=== PATIENT | male | born 1960 | race Caucasian/White ===

== ENCOUNTER 2016-05-22 11:56 | Emergency (ER) | payer OTHER ==
[~2016-05-22] VITALS: Ht 170.2 cm; Wt 70.0 kg
[2016-05-22 12:00] VITALS: Ht 170.2 cm; Wt 70.0 kg
--- NOTE | 2016-05-22 12:14 | ERD ---
ER Documentation Chief Complaint Date/Time DATE: 05/22/16 TIME: 12:10 Chief Complaint mid abdominal pain with open abdomen wound bleeding HPI 56-year-old homeless gentleman who presents emergency room for duration of abdominal wound. The patient had surgery approximately 2 years ago. It appeared to be complicated by ventral hernia that is now healing by secondary intention. The patient had surgery at [place] but has not followed up with the surgeon at that time. The patient states over the last couple days he has had small amount of bleeding from the site. He states normal ostomy output, no abdominal pain, no nausea or vomiting. No other bleeding or bruising. Patient states that his primary care physician has not provided him with referral to general surgeon. He states "I only see the PA when I go ". Last visit 2 weeks ago. ROS All systems reviewed and are negative except as per history of present illness. PMhx/Soc Medical and Surgical Hx: pt denies Surgical Hx History of Surgery: Yes (ostomy ) Hx Alcohol Use: No Hx Substance Use: No Hx Tobacco Use: No Smoking Status: Never smoker FmHx Family History: No diabetes Physical Exam Vitals Vital Signs Date Time Temp Pulse Resp B/P Pulse Ox O2 Delivery O2 Flow Rate FiO2 05/22/16 12:00 98.7 72 18 132/82 100 Physical Exam General: Well developed, well nourished, no acute distress Head: Normocephalic, atraumatic. Eyes: Pupils equally reactive, EOM intact ENT: Moist mucous membranes Neck: Supple, no lymphadenopathy Respiratory: Lungs clear bilaterally, no distress Cardiovascular: RRR, no murmurs, rubs, or gallops Abdominal: Soft, ostomy with good output. Approximately 2.5 cm area in the mid surgical scar that appears to be consistent with a healing wound dehiscence by secondary intention. The patient has a small area of excoriation that appears to have a clot that was the likely source of bleeding. This is superficial and no bleeding currently. : Deferred MSK: No edema, no unilateral swelling, 5/5 strength Neurologic: Alert and oriented, moving all extremities, normal speech, no focal weakness, no cerebellar signs Skin: No rash, no petechia or purpura Psych: Normal mood Procedures/MDM The patient presents for evaluation of abdominal wound. The wound appears to be chronic. Small amount of superficial bleeding has been noted that is now clotted. No evidence of coagulopathy on clinical exam. He denies any abdominal pain. His abdominal exam is benign. He has good ostomy output. No evidence of obstruction. The patient appeared to have very superficial bleeding from the wound that again is healing well and appropriately. The clot is formed. No current bleeding. The patient is to continue to have wound care and wound dressing changes. He needs to follow-up with primary care physician for referral to general surgeon. I provided referral information of the [facility] , the patient states "I have already tried that ". At this time the patient has a benign abdominal exam, no evidence of coagulopathy, no evidence of active bleeding. I offered a dressing change here in the emergency room, ostomy bags and discharge. The patient has been referred to his primary care physician. Referral to community health systems has also been provided. The patient is uncooperative with wound dressing in the emergency department. No indication for telemetry testing or CT imaging at this time. The patient is safe for discharge. Departure Diagnosis: Primary Impression: Abdominal wound dehiscence Encounter type: subsequent encounter Qualified Code: T81.30XD - Abdominal wound dehiscence, subsequent encounter Condition: Stable Patient Instructions: Abdominal Pain Referrals: [place] FOSTER SAMUEL MD [facility] YOU HAVE RECEIVED A MEDICAL SCREENING EXAM AND THE RESULTS INDICATE THAT YOU DO NOT HAVE A CONDITION THAT REQUIRES URGENT TREATMENT IN THE EMERGENCY DEPARTMENT. FURTHER EVALUATION AND TREATMENT OF YOUR CONDITION CAN WAIT UNTIL YOU ARE SEEN IN YOUR DOCTORS OFFICE WITHIN THE NEXT 1-2 DAYS. IT IS YOUR RESPONSIBILITY TO MAKE AN APPOINTMENT FOR FOLOW-UP CARE. IF YOU HAVE A PRIMARY DOCTOR --you should call your primary doctor and schedule an appointment IF YOU DO NOT HAVE A PRIMARY DOCTOR YOU CAN CALL OUR PHYSICIAN REFERRAL HOTLINE AT IF YOU CAN NOT AFFORD TO SEE A PHYSICIAN YOU CAN CHOSE FROM THE FOLLOWING [facility] CLINICS [facility] [address] [facility] [address] [facility] [facility] [address] [facility] [address] [facility] [address] [facility]. [facility] [address] [facility]. [facility] YOU HAVE RECEIVED A MEDICAL SCREENING EXAM AND THE RESULTS INDICATE THAT YOU DO NOT HAVE A CONDITION THAT REQUIRES URGENT TREATMENT IN THE EMERGENCY DEPARTMENT. FURTHER EVALUATION AND TREATMENT OF YOUR CONDITION CAN WAIT UNTIL YOU ARE SEEN IN YOUR DOCTORS OFFICE WITHIN THE NEXT 1-2 DAYS. IT IS YOUR RESPONSIBILITY TO MAKE AN APPOINTMENT FOR FOLOW-UP CARE. IF YOU HAVE A PRIMARY DOCTOR --you should call your primary doctor and schedule and appointment IF YOU DO NOT HAVE A PRIMARY DOCTOR YOU CAN CALL OUR PHYSICIAN REFERRAL HOTLINE AT . IF YOU CAN NOT AFFORD TO SEE A PHYSICIAN YOU CAN CHOSE FROM THE FOLLOWING [facility]: [facility] [address] [place] [address] [facility] [address] [place] [address] [facility] [address] [place] [address] Additional Instructions: You need to follow up with your PMD for referral to a General Surgeon to monitor the healing of your wound. Call your primary care doctor TOMORROW for an appointment during the next 1 WEEK.Tell the psychopaedic nurse that you were referred from this facility.See the doctor sooner or return here if your condition worsens before your appointment time. DYLAN OSLEN MD May 22, 2016 12:14
== END 2016-05-22 12:35 | disposition home or self-care (01) ==
LOC: E/R 11:56
DX: T81.30XA Disruption of wound, unspecified, initial encounter (principal); Y73.3 Surgical instruments, materials and gastroenterology and urology devices (including sutures) associated with adverse incidents
CPT/HCPCS: 99282

== ENCOUNTER 2016-07-03 12:30 | Inpatient (IN) | payer OTHER ==
[~2016-07-03] VITALS: Ht 182.9 cm; Wt 73.4 kg
[2016-07-03 16:30] VITALS: BP 107/71; RESP 16
[2016-07-03 17:46] VITALS: Ht 182.9 cm; Wt 73.4 kg
[2016-07-03] MEDS ORDERED: ONDANSETRON 4 MG INJ IV PRN ×2 (18:00→18:30)
[2016-07-03] MEDS ORDERED: ACETAMINOPHEN 325 MG TAB PO PRN (18:00)
[2016-07-03] MEDS ORDERED: DOCUSATE SODIUM 100 MG CAP PO PRN (18:00)
[2016-07-03] MEDS ORDERED: LORAZEPAM 2 MG INJ IM PRN (18:30)
--- NOTE | 2016-07-03 18:35 | QN ---
Documentation Comment a/p gi bleed anemia etoh abuse low platelet plan per order LANCE RIVAS MD July 03, 2016 18:35
[2016-07-03] MEDS: SOD CHLORIDE 0.9% 1,000 ML IV SCH (20:07)
[2016-07-03] MEDS: CEFTRIAXONE 1 GM/50 ML (PMX) 50 ML IVPB SCH (20:08)
[2016-07-03 20:25] VITALS: BP 118/72; RESP 18
[2016-07-03] MEDS: GUAIFENESIN/DM 5ML CUP PO PRN (20:53)
[2016-07-03] MEDS: DOCUSATE SODIUM 100 MG CAP PO SCH (20:53)
[2016-07-03] MEDS: SOD FERRIC GLUC COMPLX 125 MG in SOD CHLORIDE 0.9% 100 ML IVPB SCH (20:54)
[2016-07-03] MEDS ORDERED: SENNA TAB PO PRN (21:00)
[2016-07-03] MEDS: morphine 10 MG INJ IM PRN (22:01)
[2016-07-04] MEDS: PANTOPRAZOLE 40 MG INJ IV SCH (06:00)
[2016-07-04 06:07] LABS: ADD SCAN DIFF NO
[2016-07-04] MEDS: morphine 10 MG INJ IM PRN (06:08)
[2016-07-04 06:14] LABS: ABNORMAL IP MESSAGE 1; HEMATOCRIT 25.9 % (42.0-52.0); HEMOGLOBIN 8.6 g/dl (14.0-18.0); MEAN CORPUSCULAR HEMOGLOBIN 29.7 pg (29.0-33.0); MEAN CORPUSCULAR HGB CONC 33.2 g/dl (32.0-37.0); MEAN CORPUSCULAR VOLUME 89.3 fl (82.0-101.0); MEAN PLATELET VOLUME 12.1 fl (7.4-10.4); PLATELET COUNT 65 10^3/UL (140-415); RED CELL DISTRIBUTION WIDTH 22.7 % (11.5-14.5); WHITE BLOOD COUNT 2.6 10^3/ul (4.8-10.8)
[2016-07-04 07:46] VITALS: BP 109/71; RESP 16
[2016-07-04 08:10] LABS: LYMPHOCYTES # 0.6 10^3/ul (0.8-2.9); MONOCYTE # 0.6 10^3/ul (0.3-0.9); NEUTROPHIL # 1.4 10^3/ul (1.6-7.5); PLATELET ESTIMATE PLT APPEAR DECREASED
[2016-07-04] MEDS: FOLIC ACID 1 MG TAB PO SCH (09:27)
[2016-07-04] MEDS: DOCUSATE SODIUM 100 MG CAP PO SCH ×2 (09:28→20:57)
--- NOTE | 2016-07-04 13:07 | HP ---
Date/Time of Note Date/Time of Note DATE: 07/04/16 TIME: 12:52 Assessment/Plan VTE Prophylaxis VTE Prophylaxis Intervention: SCD's Lines/Catheters IV [facility] Peripheral IV Assessment/Plan Chief Complaint/Hosp Course 1.GI bleed from ileostomy and unhealed incision wound 2. Anemia 3. ETOH abuse 4. Liver cirrhosis with low platelet 5. Hs of colectomy with ileostomy formation 2 years ago 6. hepatitis C 7. Unhealed abdominal incision after exploratory laparotomy 2 years ago 8. Nicotine dependency 9. Homelessness. Problems: Assessment/Plan 1. Surgical consult Dr Leach 2. Hematology consult Dr Mark 3. Continue wound care 4. DVT prophylaxis HPI/ROS Admit Date/Time Admit Date/Time July 03, 2016 at 16:40 Hx of Present Illness pt was admitted to [facility] 5 days ago with bleeding to ileostomy and from midline incision. The bleeding was stopped on his own. he was in hospital for 5 days. Now transferred to [facility] for continuation of care ROS Constitutional: fatigue, nausea Eyes: no complaints ENT: no complaints Respiratory: no complaints Cardiovascular: no complaints Gastrointestinal: decreased appetite, other (blood in both bags) Genitourinary: no complaints Musculoskeletal: back pain, restricted range of motion Skin: bruising Neurologic: no complaints Endocrine: no complaints Psychological: depression PMH/Family/Social Past Medical History 1. Ileostomy 2. Anemia 3. ETOH abuse 4. Liver cirrhosis with low platelet 5. Hs of colectomy with ileostomy formation 2 years ago 6. hepatitis C 7. Unhealed abdominal incision after exploratory laparotomy 2 years ago 8. Nicotine dependency 9. Homelessness. Medical History: hepatitis, renal disease Past Surgical History Past Surgical Hx: bowel resection Family History Significant Family History: no pertinent family hx Social History Alcohol Use: heavy Smoking Status: Current every day smoker Drug Use: other (history of IV drug abuse) Exam/Review of Systems Vital Signs Vitals Vital Signs Date Time Temp Pulse Resp B/P Pulse Ox O2 Delivery O2 Flow Rate FiO2 07/04/16 07:46 97.9 73 16 109/71 96 Intake and Output 07/03/16 07/03/16 07/04/16 15:00 23:00 07:00 Intake Total 240 ml 860 ml Output Total 800 ml Balance 240 ml 60 ml Exam Constitutional: alert, oriented Psych: no complaints Head: atraumatic, normocephalic Eyes: nl conjunctiva, other (ickteric) ENMT: nl external ears & nose Neck: supple Respiratory: clear to auscultation, normal air movement Cardiovascular: regular rate and rhythm Gastrointestinal: soft Genitourinary - Male: nl penis (2 collection bags for ileostomy and unhealed abdominal wound) Labs Result Diagram: 07/04/16 0540 Medications Medications Current Medications Sodium Chloride (NS) 1,000 ml @ 40 mls/hr Q24H IV Last administered on 20:07; Admin Dose 40 MLS/HR; Start 07/03/16 at 17:48 Acetaminophen (Tylenol Tab) 650 mg Q6H PRN PO PAIN LEVEL 1-3 OR FEVER; Start at 18:00 Acetaminophen/ Hydrocodone Bitart ([place] (5/325)) 1 tab Q6H PRN PO MODERATE PAIN LEVEL 4-6; Start 07/03/16 at 18:00 Zolpidem Tartrate (Ambien) 5 mg QHS PRN PO SLEEP; Start 07/03/16 at 18:00 Pantoprazole 40 mg 40 mg DAILY@06 IV Last administered on 07/04/16 06:00; Admin Dose 40 MG; Start 07/04/16 at 06:00 Ceftriaxone Sodium (Rocephin) 50 ml @ 100 mls/hr Q24H IVPB Last administered on 07/03/16 20:08; Admin Dose 100 MLS/HR; Start 07/03/16 at 20:00 Docusate Sodium (Colace) 100 mg BID PO Last administered on 07/04/16 09:28; Admin Dose 100 MG; Start 07/03/16 at 21:00 Folic Acid 1 mg 1 mg DAILY PO Last administered on 07/04/16 09:27; Admin Dose 1 MG; Start 07/04/16 at 09:00 Ferric Sodium Gluconate Complex/ Sodium Chloride (Ferrlecit/NS) 110 ml @ 100 mls/hr Q24H IVPB Last administered on 07/03/16 20:54; Admin Dose 100 MLS/HR; Start 07/03/16 at 20:30; Stop 07/05/16 at 21:35 Lorazepam (Ativan) 1 mg Q4H PRN IM anxiety; Start 07/03/16 at 18:30 Morphine Sulfate (morphine) 2 mg Q4H PRN IM pain Last administered on 06:08; Admin Dose 2 MG; Start 07/03/16 at 18:30 Ondansetron HCl (Zofran Inj) 2 mg Q6H PRN IV NAUSEA AND/OR VOMITING; Start at 18:30 Senna (Senokot) 1 tab HS PRN PO CONSTIPATION; Start 07/03/16 at 21:00 Guaifenesin/ Dextromethorphan (Robitussin Dm Liquid Cup) 10 ml Q4H PRN PO COUGH Last administered on 07/03/16 20:53; Admin Dose 10 ML; Start 07/03/16 at 20:30 ESTRELLITA BENITEZ July 04, 2016 13:02
[2016-07-04] MEDS ORDERED: morphine 2 MG INJ IV PRN (13:30)
--- NOTE | 2016-07-04 13:36 | CONS ---
Date/Time of Note Date/Time of Note DATE: 07/04/16 TIME: 13:19 Assessment/Plan Assessment/Plan Chief Complaint/Hosp Course 1. Upper midline chronic wound versus enterocutaneous fistula -Consider fistulogram -Local care -Nutritional optimization -Vitamin C 2. Bleeding from ileostomy and wound stabilized -Monitor 3. Cirrhosis with fatty liver with questionable liver lesions -Will benefit from triple phase contrast CT scan -GI consultation 4. Pancytopenia secondary to alcoholism and liver disease -Medical and hematologic optimization 5. Hypoalbuminemia, multifactorial -Nutritional optimization -Encourage alcohol cessation 6. Alcoholism -Encourage cessation however patient has tried sober living unsuccessfully due to multiple factors 7. Abnormal LFTs, hyperbilirubinemia, and elevated alkaline phosphatase secondary to above -As above 8. Hyperlipidemia -Diet and medication optimization Thank you very much for consulting me in this patient's care, Problems: Consultation Date/Type/Reason Admit Date/Time July 03, 2016 at 16:40 Date of Consultation: July 04, 2016 Type of Consultation: General surgical Reason for Consultation Abdominal wall wound and bleeding Ileostomy and bleeding Anemia Referring Provider: ESTRELLITA BENITEZ Hx of Present Illness Jorgito Andrade is a 56-year-old male with multiple significant comorbidities who was admitted to [facility] with bleeding through his right ileostomy and mid upper abdomen chronic wound. He had transfusions. He also had lactic acidosis. Patient received antibiotics. CT scan reports cirrhosis with fatty infiltration multiple low-attenuation which could be either fatty liver morphology or innumerable liver lesions. Right lower quadrant ostomy and upper midline soft tissue defect at the previous wound dehiscence site which demonstrates interval granulation with associated collateral vessels as noted prior. Patient has been subsequently admitted to [facility] for further care and treatment. Surgical consultations obtained further evaluation. Patient reports some abdominal pain. Bleeding has improved. No fevers or chills. No nausea vomiting. He is having bowel function to the ostomy. He reports sometimes white discharge comes through the upper midline wound but currently is clear. No recent trauma or sick contacts. Constitutional: other (Weak), No chills, No diaphoresis, No febrile Eyes: no complaints ENT: no complaints Respiratory: no complaints Cardiovascular: no complaints Gastrointestinal: decreased appetite, other (blood in both bags; ileostomy with bleeding;), No nausea, No pain, No vomiting Genitourinary: no complaints Musculoskeletal: back pain, restricted range of motion Skin: bruising Neurologic: no complaints Psychological: no complaints Immunologic: No pruritis, No rhinitis Past Medical History Cirrhosis Fatty liver Alcohol abuse History of altered mental status Bipolar affective Seizure Depression History of dehydration Thrombocytopenia Anemia Lactic acidosis Leukopenia Hyperbilirubinemia Hypoalbuminemia Abnormal LFTs Elevated alkaline phosphatase Chronic abdominal wound versus enterocutaneous fistula Past Surgical History Right colectomy with end ileostomy 2 years ago at [facility] History of trach History of PEG Family History Significant Family History: no pertinent family hx Social History Alcohol Use: heavy Smoking Status: Current every day smoker Drug Use: marijuana, other (history of IV drug abuse) Exam/Review of Systems Vital Signs Vitals Vital Signs Date Time Temp Pulse Resp B/P Pulse Ox O2 Delivery O2 Flow Rate FiO2 07/04/16 07:46 97.9 73 16 109/71 96 Intake and Output 07/03/16 07/03/16 07/04/16 15:00 23:00 07:00 Intake Total 240 ml 860 ml Output Total 800 ml Balance 240 ml 60 ml Exam Constitutional: alert, oriented, No distress Psych: other (Flat affect), No anxiety, No confusion, No nl mood/affect Head: atraumatic, normocephalic Eyes: EOMI, PERRL, nl conjunctiva, No icteric ENMT: mucosa pink and moist, nl external ears & nose, nl lips & teeth Neck: non-tender, supple Respiratory: normal air movement, No congested cough, No diminished breath sounds, No labored breathing Cardiovascular: regular rate and rhythm, No edema Gastrointestinal: other (Right lower quadrant ileostomy. Umbilical hernia. Upper midline open wound with minimal drainage (questionable enterocutaneous fistula versus chronic wound)), soft, No distended, No rebound or guarding Genitourinary - Male: nl penis, nl scrotum Musculoskeletal: nl extremities to inspection, nl gait and stance, No joint tenderness Extremities: normal pulses, No calf tenderness Neurological: nl mental status, nl speech, nl strength Skin: nl turgor, No diaphoresis, No rash or lesions Lymph: nl lymph nodes Results Result Diagram: 07/04/16 0540 Results 24 hrs Laboratory Tests Test 07/04/16 05:40 White Blood Count 2.6 L Red Blood Count 2.90 L Hemoglobin 8.6 L Hematocrit 25.9 L Mean Corpuscular Volume 89.3 Mean Corpuscular Hemoglobin 29.7 Mean Corpuscular Hemoglobin Concent 33.2 Red Cell Distribution Width 22.7 H Platelet Count 65 L Mean Platelet Volume 12.1 H Neutrophils % 53.0 Lymphocytes % 24.0 Monocytes % 22.0 H Basophils % 1.0 Neutrophils # 1.4 L Lymphocytes # 0.6 L Monocytes # 0.6 Basophils # 0.0 Platelet Estimate PLT APPEAR DECREASED Medications Medications Current Medications Sodium Chloride (NS) 1,000 ml @ 40 mls/hr Q24H IV Last administered on 20:07; Admin Dose 40 MLS/HR; Start 07/03/16 at 17:48 Acetaminophen (Tylenol Tab) 650 mg Q6H PRN PO PAIN LEVEL 1-3 OR FEVER; Start at 18:00 Acetaminophen/ Hydrocodone Bitart ([place] (5/325)) 1 tab Q6H PRN PO MODERATE PAIN LEVEL 4-6; Start 07/03/16 at 18:00 Zolpidem Tartrate (Ambien) 5 mg QHS PRN PO SLEEP; Start 07/03/16 at 18:00 Pantoprazole 40 mg 40 mg DAILY@06 IV Last administered on 07/04/16 06:00; Admin Dose 40 MG; Start 07/04/16 at 06:00 Ceftriaxone Sodium (Rocephin) 50 ml @ 100 mls/hr Q24H IVPB Last administered on 07/03/16 20:08; Admin Dose 100 MLS/HR; Start 07/03/16 at 20:00 Docusate Sodium (Colace) 100 mg BID PO Last administered on 07/04/16 09:28; Admin Dose 100 MG; Start 07/03/16 at 21:00 Folic Acid 1 mg 1 mg DAILY PO Last administered on 07/04/16 09:27; Admin Dose 1 MG; Start 07/04/16 at 09:00 Ferric Sodium Gluconate Complex/ Sodium Chloride (Ferrlecit/NS) 110 ml @ 100 mls/hr Q24H IVPB Last administered on 07/03/16 20:54; Admin Dose 100 MLS/HR; Start 07/03/16 at 20:30; Stop 07/05/16 at 21:35 Lorazepam (Ativan) 1 mg Q4H PRN IM anxiety; Start 07/03/16 at 18:30 Morphine Sulfate (morphine) 2 mg Q4H PRN IM pain Last administered on 06:08; Admin Dose 2 MG; Start 07/03/16 at 18:30 Ondansetron HCl (Zofran Inj) 2 mg Q6H PRN IV NAUSEA AND/OR VOMITING; Start at 18:30 Senna (Senokot) 1 tab HS PRN PO CONSTIPATION; Start 07/03/16 at 21:00 Guaifenesin/ Dextromethorphan (Robitussin Dm Liquid Cup) 10 ml Q4H PRN PO COUGH Last administered on 07/03/16 20:53; Admin Dose 10 ML; Start 07/03/16 at 20:30 JOON SHORT MD July 04, 2016 13:31
--- NOTE | 2016-07-04 15:30 | CONS ---
Date/Time of Note Date/Time of Note DATE: 07/04/16 TIME: 15:18 Assessment/Plan Assessment/Plan Chief Complaint/Hosp Course 56 yo male with Hep C and EtOH cirrhosis who presents with a chronic abdominal wound #Thrombocytopenia - this is likely secondary to patient's underlying cirrhosis -need to rule out DIC vs TTP. will check DIC panel and LDH. will review peripheral smear -given pt is not actively bleeding would not transfuse platelets at this time # Anemia - this is also likely secondary to underlying cirrhosis -will check anemia panel including iron studies, vit b12/ folate and hemolysis labs #Innumerable liver lesions -agree with GI consultation -agree with CT triple phase. this has been ordered -will check AFP for now Problems: Consultation Date/Type/Reason Admit Date/Time July 03, 2016 at 16:40 Date of Consultation: July 04, 2016 Type of Consultation: Hematology Reason for Consultation thrombocytopenia Referring Provider: LANCE RIVAS Hx of Present Illness abdominal wound 56-year-old male with Hep C and EtOH cirrhosis, who presented to [facility] with bleeding through his right ileostomy and mid upper abdomen chronic wound. Patient underwent multiple transfusions and received antibiotics. CT was done which demonstrates cirrhosis and fatty infiltration. Pt was noted on labs to be thrombocytopenic with a platelet count of 65 hence the reason for this consult. Pt currently is not bleeding. Constitutional: other (Weak), No chills, No diaphoresis, No febrile Eyes: no complaints ENT: no complaints Respiratory: no complaints Cardiovascular: no complaints Gastrointestinal: decreased appetite, other (blood in both bags; ileostomy with bleeding;), No nausea, No pain, No vomiting Genitourinary: no complaints Musculoskeletal: back pain, restricted range of motion Skin: bruising Neurologic: no complaints Psychological: other (Flat affect), No anxiety, No confusion, No nl mood/affect Immunologic: No pruritis, No rhinitis Past Medical History 1. Ileostomy 2. Anemia 3. ETOH abuse 4. Liver cirrhosis with low platelet 5. Hs of colectomy with ileostomy formation 2 years ago 6. hepatitis C 7. Unhealed abdominal incision after exploratory laparotomy 2 years ago 8. Nicotine dependency 9. Homelessness. Past Surgical History Right colectomy with end ileostomy 2 years ago at [facility] History of trach History of PEG Family History Significant Family History: no pertinent family hx Social History Alcohol Use: heavy Smoking Status: Current every day smoker Drug Use: marijuana, other (history of IV drug abuse) Exam/Review of Systems Vital Signs Vitals Vital Signs Date Time Temp Pulse Resp B/P Pulse Ox O2 Delivery O2 Flow Rate FiO2 07/04/16 07:46 97.9 73 16 109/71 96 Intake and Output 07/03/16 07/03/16 07/04/16 15:00 23:00 07:00 Intake Total 240 ml 860 ml Output Total 800 ml Balance 240 ml 60 ml Exam Constitutional: alert, oriented Psych: no complaints Head: atraumatic, normocephalic Eyes: nl conjunctiva ENMT: nl external ears & nose Neck: non-tender, supple Respiratory: clear to auscultation Cardiovascular: nl pulses, regular rate and rhythm Gastrointestinal: other (Upper midline open wound with minimal drainage ) Musculoskeletal: nl extremities to inspection, nl gait and stance Extremities: normal pulses Neurological: RO[employer]RE[employer] II-XII intact Results Result Diagram: 07/04/16 0540 Results 24 hrs Laboratory Tests Test 07/04/16 05:40 White Blood Count 2.6 L Red Blood Count 2.90 L Hemoglobin 8.6 L Hematocrit 25.9 L Mean Corpuscular Volume 89.3 Mean Corpuscular Hemoglobin 29.7 Mean Corpuscular Hemoglobin Concent 33.2 Red Cell Distribution Width 22.7 H Platelet Count 65 L Mean Platelet Volume 12.1 H Neutrophils % 53.0 Lymphocytes % 24.0 Monocytes % 22.0 H Basophils % 1.0 Neutrophils # 1.4 L Lymphocytes # 0.6 L Monocytes # 0.6 Basophils # 0.0 Platelet Estimate PLT APPEAR DECREASED Medications Medications Current Medications Sodium Chloride (NS) 1,000 ml @ 40 mls/hr Q24H IV Last administered on t 20:07; Admin Dose 40 MLS/HR; Start 07/03/16 at 17:48 Acetaminophen (Tylenol Tab) 650 mg Q6H PRN PO PAIN LEVEL 1-3 OR FEVER; Start at 18:00 Acetaminophen/ Hydrocodone Bitart ([place] (5/325)) 1 tab Q6H PRN PO MODERATE PAIN LEVEL 4-6; Start 07/03/16 at 18:00 Zolpidem Tartrate (Ambien) 5 mg QHS PRN PO SLEEP; Start 07/03/16 at 18:00 Pantoprazole 40 mg 40 mg DAILY@06 IV Last administered on 07/04/16 06:00; Admin Dose 40 MG; Start 07/04/16 at 06:00 Ceftriaxone Sodium (Rocephin) 50 ml @ 100 mls/hr Q24H IVPB Last administered on 07/03/16 20:08; Admin Dose 100 MLS/HR; Start 07/03/16 at 20:00 Docusate Sodium (Colace) 100 mg BID PO Last administered on 07/04/16 09:28; Admin Dose 100 MG; Start 07/03/16 at 21:00 Folic Acid 1 mg 1 mg DAILY PO Last administered on 07/04/16 09:27; Admin Dose 1 MG; Start 07/04/16 at 09:00 Ferric Sodium Gluconate Complex/ Sodium Chloride (Ferrlecit/NS) 110 ml @ 100 mls/hr Q24H IVPB Last administered on 07/03/16 20:54; Admin Dose 100 MLS/HR; Start 07/03/16 at 20:30; Stop 07/05/16 at 21:35 Ondansetron HCl (Zofran Inj) 2 mg Q6H PRN IV NAUSEA AND/OR VOMITING; Start at 18:30 Senna (Senokot) 1 tab HS PRN PO CONSTIPATION; Start 07/03/16 at 21:00 Guaifenesin/ Dextromethorphan (Robitussin Dm Liquid Cup) 10 ml Q4H PRN PO COUGH Last administered on 07/03/16 20:53; Admin Dose 10 ML; Start 07/03/16 at 20:30 Morphine Sulfate (morphine) 2 mg Q4H PRN IV PAIN; Start 07/04/16 at 13:30 Lorazepam (Ativan) 2 mg Q4H PRN IV ANXIETY; Start 07/04/16 at 13:30 REJI SCHMID M.D. July 04, 2016 15:28
[2016-07-04] MEDS ORDERED: BARIUM SULF 2% 450 ML BTL (BERRY SMOOTHIE) PO ONE (16:00)
[2016-07-04 16:19] LABS: RETICULOCYTE COUNT % 6.8 % (0.5-1.5)
[2016-07-04 16:23] LABS: LACTATE DEHYDROGENASE 434 IU/L (313-618)
[2016-07-04 16:30] LABS: IRON 53 ug/dl (35-150)
[2016-07-04 16:39] LABS: TOTAL IRON BINDING CAPACITY 273 ug/dl (241-421)
[2016-07-04 17:30] LABS: FOLATE > 20.0 ng/ml (2.8-20.0)
[2016-07-04] MEDS ORDERED: ZOLPIDEM 5 MG TAB PO PRN (19:00)
[2016-07-04 19:43] VITALS: BP 107/65; RESP 18
[2016-07-04] MEDS: CEFTRIAXONE 1 GM/50 ML (PMX) 50 ML IVPB SCH (19:51)
[2016-07-04] MEDS: GUAIFENESIN/DM 5ML CUP PO PRN (19:51)
[2016-07-04] MEDS: morphine 4 MG/ML VIAL IV PRN (20:00)
[2016-07-04 20:33] LABS: POTASSIUM 4.5 mmol/L (3.5-5.1)
[2016-07-04 20:35] LABS: CREATININE 0.7 mg/dl (0.61-1.24)
[2016-07-04] MEDS: SOD FERRIC GLUC COMPLX 125 MG in SOD CHLORIDE 0.9% 100 ML IVPB SCH (20:56)
[2016-07-04] MEDS: SOD CHLORIDE 0.9% 1,000 ML IV SCH (20:57)
[2016-07-04] MEDS: LORAZEPAM 2 MG INJ IV PRN (21:38)
[2016-07-04] MEDS ORDERED: SOD CHLORIDE 0.9% 100 ML ONE (22:28)
[2016-07-04] MEDS ORDERED: IOHEXOL 300MG/ML 150 ML BTL ONE (22:28)
[2016-07-05] MEDS: ZOLPIDEM 5 MG TAB PO PRN ×2 (00:10→21:56)
[2016-07-05] MEDS: PANTOPRAZOLE 40 MG INJ IV SCH (05:57)
[2016-07-05 06:32] LABS: ADD SCAN DIFF NO
[2016-07-05 06:45] LABS: ABNORMAL IP MESSAGE 1; BASOPHILS % 1.2 % (0.0-2.0); EOSINOPHILS # 0.1 10^3/ul (0.0-0.5); EOSINOPHILS % 2.4 % (0.0-7.0); HEMATOCRIT 26.6 % (42.0-52.0); HEMOGLOBIN 8.7 g/dl (14.0-18.0); LYMPHOCYTES # 0.7 10^3/ul (0.8-2.9); LYMPHOCYTES % 25.5 % (15.0-51.0); MEAN CORPUSCULAR HEMOGLOBIN 29.8 pg (29.0-33.0); MEAN CORPUSCULAR HGB CONC 32.7 g/dl (32.0-37.0); MEAN CORPUSCULAR VOLUME 91.1 fl (82.0-101.0); MEAN PLATELET VOLUME 12.5 fl (7.4-10.4); MONOCYTE # 0.8 10^3/ul (0.3-0.9); MONOCYTES % 32.2 % (0.0-11.0); NEUTROPHILS % 37.9 % (39.0-77.0); PLATELET COUNT 83 10^3/UL (140-415); RED BLOOD COUNT 2.92 10^6/ul (4.70-6.10); RED CELL DISTRIBUTION WIDTH 23.9 % (11.5-14.5); WHITE BLOOD COUNT 2.6 10^3/ul (4.8-10.8)
[2016-07-05 07:13] LABS: ALBUMIN 3.2 g/dl (3.3-4.9)
[2016-07-05 07:14] LABS: POTASSIUM 3.9 mmol/L (3.5-5.1)
[2016-07-05 07:16] LABS: ALBUMIN/GLOBULIN RATIO 0.86; BILIRUBIN,DIRECT 0.4 mg/dl (0.00-0.20); BILIRUBIN,INDIRECT 1.2 mg/dl (0-1.1); BILIRUBIN,TOTAL 1.6 mg/dl (0.2-1.3); CREATININE 0.63 mg/dl (0.61-1.24); TOTAL PROTEIN 6.9 g/dl (6.1-8.1)
[2016-07-05 07:17] LABS: CALCIUM 8.9 mg/dl (8.4-10.2)
[2016-07-05 07:31] VITALS: BP 101/58; RESP 20
--- NOTE | 2016-07-05 08:35 | CONS ---
Date/Time of Note Date/Time of Note DATE: 07/05/16 TIME: 08:26 Assessment/Plan Assessment/Plan Chief Complaint/Hosp Course IMPRESSION: 1. Upper midline chronic wound versus enterocutaneous fistula 2. Bleeding from ileostomy and wound: improved 3. Cirrhosis with fatty liver with questionable liver lesions 4. Pancytopenia secondary to alcoholism and liver disease 5. Hypoalbuminemia, multifactorial 6. Alcoholism 7. Abnormal LFTs, hyperbilirubinemia, and elevated alkaline phosphatase secondary to above RECOMMENDATIONS: 1. -Nutritional optimization AND Vitamin C to help with healing of abdominal wound and possible fistula 2. monitor h/h and ileostomy bleed. If bleeding recurs, consider EGD and ileoscopy for hemostasis. 3. f/u triple phase contrast CT scan to evaluate HCV cirrhosis to assess the liver lesions 4. Encourage cessation 5. heme/onc eval in case the liver lesions are neoplastic in nature Problems: Consultation Date/Type/Reason Admit Date/Time July 03, 2016 at 16:40 Type of Consultation: GI Hx of Present Illness 56-year-old male with multiple significant comorbidities who was admitted to [facility] with bleeding through his right ileostomy and mid upper abdomen chronic wound s/p pRBC transfusions. He also had lactic acidosis. CT scan reports cirrhosis with fatty infiltration multiple low-attenuation which could be either fatty liver morphology or innumerable liver lesions. Right lower quadrant ostomy and upper midline soft tissue defect at the previous wound dehiscence site which demonstrates interval granulation with associated collateral vessels as noted prior. Patient has been subsequently admitted to [facility] for further care and treatment. Patient reports some abdominal pain. No further bleeding in ileostomy. No fevers or chills. No nausea vomiting. He is having bowel function to the ostomy. He reports sometimes white discharge comes through the upper midline wound but currently is clear. No recent trauma or sick contacts. Constitutional: other (Weak), No chills, No diaphoresis, No febrile Eyes: no complaints ENT: no complaints Respiratory: no complaints Cardiovascular: no complaints Gastrointestinal: decreased appetite, other (blood in both bags; ileostomy with bleeding;), No nausea, No pain, No vomiting Genitourinary: no complaints Musculoskeletal: back pain, restricted range of motion Skin: bruising Neurologic: no complaints Psychological: no complaints Immunologic: No pruritis, No rhinitis Past Medical History Medical History: GI bleed, hepatitis (HCV), other (anemia, EtOH abuse, cirrhosis) Past Surgical History Past Surgical Hx: bowel resection, endoscopy, other (h/o Trach and PEG) Family History Significant Family History: no pertinent family hx Social History Alcohol Use: heavy Smoking Status: Current every day smoker Drug Use: marijuana, other (history of IV drug abuse) Exam/Review of Systems Vital Signs Vitals Vital Signs Date Time Temp Pulse Resp B/P Pulse Ox O2 Delivery O2 Flow Rate FiO2 07/05/16 07:31 97.5 73 20 101/58 97 Intake and Output 07/04/16 07/04/16 07/05/16 14:59 22:59 06:59 Intake Total 3230 ml 760 ml Output Total 1700 ml 1400 ml Balance 1530 ml -640 ml Exam Constitutional: alert, oriented, well developed Psych: nl mood/affect, no complaints Head: atraumatic, normocephalic Eyes: EOMI, nl conjunctiva, nl lids, nl sclera ENMT: mucosa pink and moist, nl external ears & nose, nl lips & teeth, nl nasal mucosa & septum Neck: non-tender, supple Respiratory: clear to auscultation, normal air movement Cardiovascular: nl pulses, regular rate and rhythm Gastrointestinal: bowel sounds, non-tender, other (ileostomy c/d/i), soft Neurological: nl mental status, nl speech, nl strength Skin: nl turgor Results Result Diagram: 07/05/16 0537 07/05/16 0537 Results 24 hrs Laboratory Tests Test 07/04/16 15:45 07/04/16 20:05 07/05/16 05:37 Absolute Reticulocyte Count 0.211 H Percent Reticulocyte Count 6.8 H Iron Level 53 Total Iron Binding Capacity 273 Percent Iron Saturation 19 L Ferritin 302.0 H Lactate Dehydrogenase 434 Alpha Fetoprotein 4.00 Vitamin B12 Level 1000 H Folate > 20.0 H Sodium Level 133 L 132 L Potassium Level 4.5 3.9 Chloride Level 101 102 Carbon Dioxide Level 21 21 Anion Gap 16 13 Blood Urea Nitrogen 11 13 Creatinine 0.70 0.63 Glucose Level 109 95 Calcium Level 9.0 8.9 White Blood Count 2.6 L Red Blood Count 2.92 L Hemoglobin 8.7 L Hematocrit 26.6 L Mean Corpuscular Volume 91.1 Mean Corpuscular Hemoglobin 29.8 Mean Corpuscular Hemoglobin Concent 32.7 Red Cell Distribution Width 23.9 H Platelet Count 83 #L Mean Platelet Volume 12.5 H Neutrophils % 37.9 L Lymphocytes % 25.5 Monocytes % 32.2 H Eosinophils % 2.4 Basophils % 1.2 Nucleated Red Blood Cells % 0.0 Neutrophils # 1.0 L Lymphocytes # 0.7 L Monocytes # 0.8 Eosinophils # 0.1 Basophils # 0.0 Nucleated Red Blood Cells # 0.0 Total Bilirubin 1.6 H Direct Bilirubin 0.40 H Indirect Bilirubin 1.2 H Aspartate Amino Transf (AST/SGOT) 152 H Alanine Aminotransferase (ALT/SGPT) 71 H Alkaline Phosphatase 211 H Total Protein 6.9 Albumin 3.2 L Globulin 3.70 H Albumin/Globulin Ratio 0.86 Medications Medications Current Medications Sodium Chloride (NS) 1,000 ml @ 40 mls/hr Q24H IV Last administered on 20:57; Admin Dose 40 MLS/HR; Start 07/03/16 at 17:48 Acetaminophen (Tylenol Tab) 650 mg Q6H PRN PO PAIN LEVEL 1-3 OR FEVER; Start at 18:00 Acetaminophen/ Hydrocodone Bitart ([place] (5/325)) 1 tab Q6H PRN PO MODERATE PAIN LEVEL 4-6; Start 07/03/16 at 18:00 Zolpidem Tartrate (Ambien) 5 mg QHS PRN PO SLEEP Last administered on 00:10; Admin Dose 5 MG; Start 07/03/16 at 18:00 Pantoprazole 40 mg 40 mg DAILY@06 IV Last administered on 07/05/16 05:57; Admin Dose 40 MG; Start 07/04/16 at 06:00 Ceftriaxone Sodium (Rocephin) 50 ml @ 100 mls/hr Q24H IVPB Last administered on 07/04/16 19:51; Admin Dose 100 MLS/HR; Start 07/03/16 at 20:00 Docusate Sodium (Colace) 100 mg BID PO Last administered on 07/04/16 20:57; Admin Dose 100 MG; Start 07/03/16 at 21:00 Folic Acid 1 mg 1 mg DAILY PO Last administered on 07/04/16 09:27; Admin Dose 1 MG; Start 07/04/16 at 09:00 Ferric Sodium Gluconate Complex/ Sodium Chloride (Ferrlecit/NS) 110 ml @ 100 mls/hr Q24H IVPB Last administered on 07/04/16 20:56; Admin Dose 100 MLS/HR; Start 07/03/16 at 20:30; Stop 07/05/16 at 21:35 Ondansetron HCl (Zofran Inj) 2 mg Q6H PRN IV NAUSEA AND/OR VOMITING; Start at 18:30 Senna (Senokot) 1 tab HS PRN PO CONSTIPATION; Start 07/03/16 at 21:00 Guaifenesin/ Dextromethorphan (Robitussin Dm Liquid Cup) 10 ml Q4H PRN PO COUGH Last administered on 07/04/16 19:51; Admin Dose 10 ML; Start 07/03/16 at 20:30 Lorazepam (Ativan) 2 mg Q4H PRN IV ANXIETY Last administered on 07/04/16 21:38 ; Admin Dose 2 MG; Start 07/04/16 at 13:30 Morphine Sulfate (morphine) 3 mg Q4H PRN IV Pain Last administered on 20:00; Admin Dose 3 MG; Start 07/04/16 at 19:00 ARTUR TURPIN MD July 05, 2016 08:35
[2016-07-05] MEDS: FOLIC ACID 1 MG TAB PO SCH (09:30)
[2016-07-05] MEDS: DOCUSATE SODIUM 100 MG CAP PO SCH ×2 (09:31→20:58)
[2016-07-05] MEDS: GUAIFENESIN/DM 5ML CUP PO PRN (09:31)
[2016-07-05] MEDS: morphine 4 MG/ML VIAL IV PRN ×3 (09:35→21:06)
--- NOTE | 2016-07-05 10:02 | RADRPT ---
PROCEDURE: CT abdomen and pelvis with and without contrast. CLINICAL INDICATION: Hepatic cellular carcinoma. TECHNIQUE: CT scan of the abdomen and pelvis without contrast was performed and is reconstructed a t 2.5 mm contiguous axial intervals from the dome of the diaphragm to the inferior pubic rami.. The patient was then injected with intravenous contrast and repeat postcontrast axial imaging was perfo rmed through the liver in both the hepatic arterial and portal venous phase of the injection. Delay ed axial images were then obtained through the abdomen and pelvis. Sagittal and coronal reformatted images were obtained from the axial source images. The calculated radiation dose measures 1517 mGy centimeters. The CTDI measures 14 mGy. COMPARISON: None. FINDINGS: The lung bases are clear of any infiltrate or nodule. No effusion is seen. Liver is enlarged measuring 20 cm in length. There is slight lobulated contour to the liver suggest jeanie of cirrhosis. No mass or ductal dilatation is seen. Portal vein is patent. There are varices compatible with portal hypertension.. No gallstones are visualized. No adrenal or pancreatic abn ormalities present. the spleen is enlarged measuring 16.5 cm. No focal splenic masses seen. The c ommon bile duct measures 8 mm in transverse plane. No stones are seen. Kidneys enhance and excrete symmetrically and are of normal size and contour. No hydronephrosis, c alculus or masses seen. Ureters are of normal course and caliber with no stone. No bladder mass or stone is present. There is no aneurysm. No adenopathy is present. No bowel mass or obstruction is present. Noted is an ostomy in the right lower quadrant. There is a second ostomy of the decompressed transverse colon in the mid abdomen. The appendix is normal. No phlegmon or pneumoperitoneum is visualized. There is trace ascites. The osseous structures are intact. IMPRESSION: Enlarged Cirrhotic liver without evidence of focal mass. Patent portal vein. Varices with splenomeg cherry - rule out portal hypertension. Trace ascites. Diverting ostomy as above. Clinical correlation suggested. .Preston Dumas MD, MD Date Time Electronically viewed and signed by .Preston Dumas MD, on 07/05/2016 10:01 .A/
--- NOTE | 2016-07-05 13:09 | PN ---
Date/Time of Note Date/Time of Note DATE: 07/05/16 TIME: 13:07 Assessment/Plan VTE Prophylaxis VTE Prophylaxis Intervention: ambulation Lines/Catheters [facility] Saline Lock Assessment/Plan Chief Complaint/Hosp Course 1.GI bleed from ileostomy and unhealed incision wound 2. Anemia 3. ETOH abuse 4. Liver cirrhosis with low platelet 5. Hs of colectomy with ileostomy formation 2 years ago 6. hepatitis C 7. Unhealed abdominal incision after exploratory laparotomy 2 years ago 8. Nicotine dependency 9. Homelessness. Problems: Assessment/Plan 1. Stop alcohol intake 2. Electrolyte balance Subjective 24 Hr Interval Summary Constitutional: improved, no complaints Respiratory: no complaints Cardiovascular: no complaints Gastrointestinal: no complaints Exam/Review of Systems Vital Signs Vitals Vital Signs Date Time Temp Pulse Resp B/P Pulse Ox O2 Delivery O2 Flow Rate FiO2 07/05/16 07:31 97.5 73 20 101/58 97 Intake and Output 07/04/16 07/04/16 07/05/16 15:00 23:00 07:00 Intake Total 3230 ml 760 ml Output Total 1700 ml 1400 ml Balance 1530 ml -640 ml Exam Constitutional: alert, oriented Head: normocephalic Eyes: nl conjunctiva ENMT: nl external ears & nose Neck: supple Respiratory: clear to auscultation Cardiovascular: regular rate and rhythm Genitourinary - Male: nl scrotum Results Result Diagram: 07/05/16 0537 07/05/16 0537 Results 24 hrs Laboratory Tests Test 07/04/16 15:45 07/04/16 20:05 07/05/16 05:37 Absolute Reticulocyte Count 0.211 H Percent Reticulocyte Count 6.8 H Haptoglobin 60 Iron Level 53 Total Iron Binding Capacity 273 Percent Iron Saturation 19 L Ferritin 302.0 H Lactate Dehydrogenase 434 Alpha Fetoprotein 4.00 Vitamin B12 Level 1000 H Folate > 20.0 H Sodium Level 133 L 132 L Potassium Level 4.5 3.9 Chloride Level 101 102 Carbon Dioxide Level 21 21 Anion Gap 16 13 Blood Urea Nitrogen 11 13 Creatinine 0.70 0.63 Glucose Level 109 95 Calcium Level 9.0 8.9 White Blood Count 2.6 L Red Blood Count 2.92 L Hemoglobin 8.7 L Hematocrit 26.6 L Mean Corpuscular Volume 91.1 Mean Corpuscular Hemoglobin 29.8 Mean Corpuscular Hemoglobin Concent 32.7 Red Cell Distribution Width 23.9 H Platelet Count 83 #L Mean Platelet Volume 12.5 H Neutrophils % 37.9 L Lymphocytes % 25.5 Monocytes % 32.2 H Eosinophils % 2.4 Basophils % 1.2 Nucleated Red Blood Cells % 0.0 Neutrophils # 1.0 L Lymphocytes # 0.7 L Monocytes # 0.8 Eosinophils # 0.1 Basophils # 0.0 Nucleated Red Blood Cells # 0.0 Total Bilirubin 1.6 H Direct Bilirubin 0.40 H Indirect Bilirubin 1.2 H Aspartate Amino Transf (AST/SGOT) 152 H Alanine Aminotransferase (ALT/SGPT) 71 H Alkaline Phosphatase 211 H Total Protein 6.9 Albumin 3.2 L Globulin 3.70 H Albumin/Globulin Ratio 0.86 Medications Medications Current Medications Sodium Chloride (NS) 1,000 ml @ 40 mls/hr Q24H IV Last administered on 20:57; Admin Dose 40 MLS/HR; Start 07/03/16 at 17:48 Acetaminophen (Tylenol Tab) 650 mg Q6H PRN PO PAIN LEVEL 1-3 OR FEVER; Start at 18:00 Acetaminophen/ Hydrocodone Bitart ([place] (5/325)) 1 tab Q6H PRN PO MODERATE PAIN LEVEL 4-6; Start 07/03/16 at 18:00 Zolpidem Tartrate (Ambien) 5 mg QHS PRN PO SLEEP Last administered on 00:10; Admin Dose 5 MG; Start 07/03/16 at 18:00 Pantoprazole 40 mg 40 mg DAILY@06 IV Last administered on 07/05/16 05:57; Admin Dose 40 MG; Start 07/04/16 at 06:00 Ceftriaxone Sodium (Rocephin) 50 ml @ 100 mls/hr Q24H IVPB Last administered on 07/04/16 19:51; Admin Dose 100 MLS/HR; Start 07/03/16 at 20:00 Docusate Sodium (Colace) 100 mg BID PO Last administered on 07/05/16 09:31; Admin Dose 100 MG; Start 07/03/16 at 21:00 Folic Acid 1 mg 1 mg DAILY PO Last administered on 07/05/16 09:30; Admin Dose 1 MG; Start 07/04/16 at 09:00 Ferric Sodium Gluconate Complex/ Sodium Chloride (Ferrlecit/NS) 110 ml @ 100 mls/hr Q24H IVPB Last administered on 07/04/16 20:56; Admin Dose 100 MLS/HR; Start 07/03/16 at 20:30; Stop 07/05/16 at 21:35 Ondansetron HCl (Zofran Inj) 2 mg Q6H PRN IV NAUSEA AND/OR VOMITING; Start at 18:30 Senna (Senokot) 1 tab HS PRN PO CONSTIPATION; Start 07/03/16 at 21:00 Guaifenesin/ Dextromethorphan (Robitussin Dm Liquid Cup) 10 ml Q4H PRN PO COUGH Last administered on 07/05/16 09:31; Admin Dose 10 ML; Start 07/03/16 at 20:30 Lorazepam (Ativan) 2 mg Q4H PRN IV ANXIETY Last administered on 07/04/16 21:38 ; Admin Dose 2 MG; Start 07/04/16 at 13:30 Morphine Sulfate (morphine) 3 mg Q4H PRN IV Pain Last administered on 09:35; Admin Dose 3 MG; Start 07/04/16 at 19:00 ESTRELLITA BENITEZ July 05, 2016 13:09
--- NOTE | 2016-07-05 13:17 | CONS ---
Date/Time of Note Date/Time of Note DATE: 07/05/16 TIME: 13:12 Assessment/Plan Assessment/Plan Chief Complaint/Hosp Course 56 yo male with Hep C and EtOH cirrhosis who presents with a chronic abdominal wound #Thrombocytopenia - this is likely secondary to patient's underlying cirrhosis. platelets are improving -TTP unlikely as LDH is normal. f/u DIC panel -given pt is not actively bleeding would not transfuse platelets at this time # Anemia - this is also likely secondary to underlying cirrhosis -will check anemia panel including iron studies, vit b12/ folate and hemolysis labs #Innumerable liver lesions -triple phase dedicated liver CT did not show evidence of HCC. furthermore AFP is 4. I am therefore not concerned for underlying malignancy at this time -will check AFP for now Problems: Consultation Date/Type/Reason Admit Date/Time July 03, 2016 at 16:40 Initial Consult Date 07/04/16 Type of Consultation: Hematology Reason for Consultation thrombocytopenia/ liver mass Referring Provider: LANCE RIVAS MD 24 HR Interval Summary Free Text/Dictation bleeding from ostomy has subsided. platelets improved Exam/Review of Systems Vital Signs Vitals Vital Signs Date Time Temp Pulse Resp B/P Pulse Ox O2 Delivery O2 Flow Rate FiO2 07/05/16 07:31 97.5 73 20 101/58 97 Intake and Output 07/04/16 07/04/16 07/05/16 15:00 23:00 07:00 Intake Total 3230 ml 760 ml Output Total 1700 ml 1400 ml Balance 1530 ml -640 ml Exam Constitutional: alert, oriented Psych: no complaints Head: normocephalic Eyes: nl conjunctiva ENMT: nl external ears & nose Neck: non-tender, supple Respiratory: clear to auscultation Cardiovascular: nl pulses, regular rate and rhythm Gastrointestinal: other (ostomy in place) Musculoskeletal: nl extremities to inspection Extremities: normal pulses Results Result Diagram: 07/05/16 0537 07/05/16 0537 Results 24 hrs Laboratory Tests Test 07/04/16 15:45 07/04/16 20:05 07/05/16 05:37 Absolute Reticulocyte Count 0.211 H Percent Reticulocyte Count 6.8 H Haptoglobin 60 Iron Level 53 Total Iron Binding Capacity 273 Percent Iron Saturation 19 L Ferritin 302.0 H Lactate Dehydrogenase 434 Alpha Fetoprotein 4.00 Vitamin B12 Level 1000 H Folate > 20.0 H Sodium Level 133 L 132 L Potassium Level 4.5 3.9 Chloride Level 101 102 Carbon Dioxide Level 21 21 Anion Gap 16 13 Blood Urea Nitrogen 11 13 Creatinine 0.70 0.63 Glucose Level 109 95 Calcium Level 9.0 8.9 White Blood Count 2.6 L Red Blood Count 2.92 L Hemoglobin 8.7 L Hematocrit 26.6 L Mean Corpuscular Volume 91.1 Mean Corpuscular Hemoglobin 29.8 Mean Corpuscular Hemoglobin Concent 32.7 Red Cell Distribution Width 23.9 H Platelet Count 83 #L Mean Platelet Volume 12.5 H Neutrophils % 37.9 L Lymphocytes % 25.5 Monocytes % 32.2 H Eosinophils % 2.4 Basophils % 1.2 Nucleated Red Blood Cells % 0.0 Neutrophils # 1.0 L Lymphocytes # 0.7 L Monocytes # 0.8 Eosinophils # 0.1 Basophils # 0.0 Nucleated Red Blood Cells # 0.0 Total Bilirubin 1.6 H Direct Bilirubin 0.40 H Indirect Bilirubin 1.2 H Aspartate Amino Transf (AST/SGOT) 152 H Alanine Aminotransferase (ALT/SGPT) 71 H Alkaline Phosphatase 211 H Total Protein 6.9 Albumin 3.2 L Globulin 3.70 H Albumin/Globulin Ratio 0.86 Medications Medications Current Medications Sodium Chloride (NS) 1,000 ml @ 40 mls/hr Q24H IV Last administered on 20:57; Admin Dose 40 MLS/HR; Start 07/03/16 at 17:48 Acetaminophen (Tylenol Tab) 650 mg Q6H PRN PO PAIN LEVEL 1-3 OR FEVER; Start at 18:00 Acetaminophen/ Hydrocodone Bitart ([place] (5/325)) 1 tab Q6H PRN PO MODERATE PAIN LEVEL 4-6; Start 07/03/16 at 18:00 Zolpidem Tartrate (Ambien) 5 mg QHS PRN PO SLEEP Last administered on 00:10; Admin Dose 5 MG; Start 07/03/16 at 18:00 Pantoprazole 40 mg 40 mg DAILY@06 IV Last administered on 07/05/16 05:57; Admin Dose 40 MG; Start 07/04/16 at 06:00 Ceftriaxone Sodium (Rocephin) 50 ml @ 100 mls/hr Q24H IVPB Last administered on 07/04/16 19:51; Admin Dose 100 MLS/HR; Start 07/03/16 at 20:00 Docusate Sodium (Colace) 100 mg BID PO Last administered on 07/05/16 09:31; Admin Dose 100 MG; Start 07/03/16 at 21:00 Folic Acid 1 mg 1 mg DAILY PO Last administered on 07/05/16 09:30; Admin Dose 1 MG; Start 07/04/16 at 09:00 Ferric Sodium Gluconate Complex/ Sodium Chloride (Ferrlecit/NS) 110 ml @ 100 mls/hr Q24H IVPB Last administered on 07/04/16 20:56; Admin Dose 100 MLS/HR; Start 07/03/16 at 20:30; Stop 07/05/16 at 21:35 Ondansetron HCl (Zofran Inj) 2 mg Q6H PRN IV NAUSEA AND/OR VOMITING; Start at 18:30 Senna (Senokot) 1 tab HS PRN PO CONSTIPATION; Start 07/03/16 at 21:00 Guaifenesin/ Dextromethorphan (Robitussin Dm Liquid Cup) 10 ml Q4H PRN PO COUGH Last administered on 07/05/16 09:31; Admin Dose 10 ML; Start 07/03/16 at 20:30 Lorazepam (Ativan) 2 mg Q4H PRN IV ANXIETY Last administered on 07/04/16 21:38 ; Admin Dose 2 MG; Start 07/04/16 at 13:30 Morphine Sulfate (morphine) 3 mg Q4H PRN IV Pain Last administered on 09:35; Admin Dose 3 MG; Start 07/04/16 at 19:00 REJI SCHMID M.D. July 05, 2016 13:17
[2016-07-05 15:15] LABS: PLATELET COUNT 93 10^3/UL (140-415)
[2016-07-05 15:31] LABS: PROTIME 15.3 Sec (12.2-14.2); PT RATIO 1.2
[2016-07-05 15:32] LABS: PARTIAL THROMBOPLASTIN TIME 41.1 Sec (25.0-35.0); THROMBIN TIME 15.4 SEC (13.8-19.1)
[2016-07-05 15:35] LABS: D-DIMER 538.35 ng/ml (<460)
[2016-07-05 16:24] LABS: FIBRIN SPLIT PRODUCT <10 ug/ml (<10)
[2016-07-05] MEDS: SOD CHLORIDE 0.9% 1,000 ML IV SCH ×2 (17:48→21:00)
[2016-07-05] MEDS: CEFTRIAXONE 1 GM/50 ML (PMX) 50 ML IVPB SCH (19:56)
[2016-07-05] MEDS: LORAZEPAM 2 MG INJ IV PRN (20:00)
[2016-07-05 20:16] VITALS: BP 105/58; RESP 18
[2016-07-05] MEDS: SOD FERRIC GLUC COMPLX 125 MG in SOD CHLORIDE 0.9% 100 ML IVPB SCH (20:58)
--- NOTE | 2016-07-06 00:18 | PN ---
Date/Time of Note Date/Time of Note DATE: 07/05/16 TIME: 11:16 Assessment/Plan Lines/Catheters IV [facility] (from [facility]): Saline Lock Assessment/Plan Chief Complaint/Hosp Course 1. Upper midline chronic wound versus enterocutaneous fistula -Consider fistulogram -Local care -Nutritional optimization -Vitamin C 2. Bleeding from ileostomy and wound stabilized -Monitor 3. Cirrhosis with fatty liver with questionable liver lesions -Will benefit from triple phase contrast CT scan -GI consultation 4. Pancytopenia secondary to alcoholism and liver disease -Medical and hematologic optimization 5. Hypoalbuminemia, multifactorial -Nutritional optimization -Encourage alcohol cessation 6. Alcoholism -Encourage cessation however patient has tried sober living unsuccessfully due to multiple factors 7. Abnormal LFTs, hyperbilirubinemia, and elevated alkaline phosphatase secondary to above -As above 8. Hyperlipidemia -Diet and medication optimization Thank you, Late entry 07/05 Problems: Subjective 24 Hr Interval Summary No bleeding. No f/c. No n/v. No cp/sob. No cough. No guerra/dizzy/visual or neuro changes. Bowel function. Exam/Review of Systems Vital Signs Vitals Vital Signs Date Time Temp Pulse Resp B/P Pulse Ox O2 Delivery O2 Flow Rate FiO2 07/05/16 20:16 98.2 70 18 105/58 98 Intake and Output 07/05/16 07/05/16 07/06/16 15:00 23:00 07:00 Intake Total 2330 ml Output Total 4400 ml Balance -2070 ml Exam Free Text/Dictation Constitutional: alert, oriented, No distress Psych: other (Flat affect), No anxiety, No confusion, No nl mood/affect Head: atraumatic, normocephalic Eyes: EOMI, PERRL, nl conjunctiva, No icteric ENMT: mucosa pink and moist, nl external ears & nose, nl lips & teeth Neck: non-tender, supple Respiratory: normal air movement, No congested cough, No diminished breath sounds, No labored breathing Cardiovascular: regular rate and rhythm, No edema Gastrointestinal: other (Right lower quadrant ileostomy. Umbilical hernia. Upper midline open wound with minimal drainage (questionable enterocutaneous fistula versus chronic wound)), soft, No distended, No rebound or guarding Genitourinary - Male: nl penis, nl scrotum Musculoskeletal: nl extremities to inspection, nl gait and stance, No joint tenderness Extremities: normal pulses, No calf tenderness Neurological: nl mental status, nl speech, nl strength Skin: nl turgor, No diaphoresis, No rash or lesions Lymph: nl lymph nodes Results Result Diagram: 07/05/16 1455 07/05/16 0537 JOON SHORT MD July 06, 2016 00:18
[2016-07-06] MEDS: PANTOPRAZOLE 40 MG INJ IV SCH (05:24)
[2016-07-06] MEDS: morphine 4 MG/ML VIAL IV PRN ×3 (05:30→21:17)
[2016-07-06 05:50] LABS: ADD SCAN DIFF NO
[2016-07-06 06:06] LABS: ABNORMAL IP MESSAGE 1; BASOPHILS % 1.6 % (0.0-2.0); EOSINOPHILS % 1.6 % (0.0-7.0); HEMATOCRIT 26.1 % (42.0-52.0); HEMOGLOBIN 8.9 g/dl (14.0-18.0); LYMPHOCYTES # 0.7 10^3/ul (0.8-2.9); LYMPHOCYTES % 27.6 % (15.0-51.0); MEAN CORPUSCULAR HEMOGLOBIN 30.9 pg (29.0-33.0); MEAN CORPUSCULAR HGB CONC 34.1 g/dl (32.0-37.0); MEAN CORPUSCULAR VOLUME 90.6 fl (82.0-101.0); MEAN PLATELET VOLUME 11.9 fl (7.4-10.4); MONOCYTE # 0.7 10^3/ul (0.3-0.9); MONOCYTES % 29.2 % (0.0-11.0); NEUTROPHILS % 39.6 % (39.0-77.0); PLATELET COUNT 101 10^3/UL (140-415); RED BLOOD COUNT 2.88 10^6/ul (4.70-6.10); RED CELL DISTRIBUTION WIDTH 23.6 % (11.5-14.5); WHITE BLOOD COUNT 2.4 10^3/ul (4.8-10.8)
[2016-07-06 06:22] LABS: CREATININE 0.55 mg/dl (0.61-1.24)
[2016-07-06 07:15] VITALS: BP 94/61; RESP 20
[2016-07-06] MEDS: DOCUSATE SODIUM 100 MG CAP PO SCH ×2 (09:32→20:10)
[2016-07-06] MEDS: FOLIC ACID 1 MG TAB PO SCH (09:32)
[2016-07-06] MEDS: LORAZEPAM 2 MG INJ IV PRN ×2 (09:34→20:07)
[2016-07-06] MEDS: NACL 0.9% 3 ML SYG IV SCH ×2 (09:37→15:02)
--- NOTE | 2016-07-06 14:56 | CONS ---
Date/Time of Note Date/Time of Note DATE: 07/06/16 TIME: 14:51 Assessment/Plan Assessment/Plan Chief Complaint/Hosp Course IMPRESSION: 1. Upper midline chronic wound versus enterocutaneous fistula 2. Bleeding from ileostomy and wound: resolved 3. Triple phase CT did not show liver lesion so unlikely to have liver malignancy 4. Pancytopenia secondary to alcoholism and liver disease 5. Hypoalbuminemia, multifactorial 6. Alcoholic cirrhosis 7. Abnormal LFTs, hyperbilirubinemia, and elevated alkaline phosphatase secondary to above RECOMMENDATIONS: 1. Nutritional optimization AND Vitamin C to help with healing of abdominal wound and possible fistula 2. monitor h/h and ileostomy bleed. If bleeding recurs, consider EGD and ileoscopy for hemostasis. 3. management of possible enterocutaneous fistula per surgery Dr. Leach 4. Encourage alcohol cessation Problems: Consultation Date/Type/Reason Admit Date/Time July 03, 2016 at 16:40 Initial Consult Date 07/04/16 Type of Consultation: GI Referring Provider: LANCE RIVAS MD 24 HR Interval Summary Free Text/Dictation no melena, brbpr, n/v Exam/Review of Systems Vital Signs Vitals Vital Signs Date Time Temp Pulse Resp B/P Pulse Ox O2 Delivery O2 Flow Rate FiO2 07/06/16 07:15 97.5 66 20 94/61 98 Intake and Output 07/05/16 07/05/16 07/06/16 15:00 23:00 07:00 Intake Total 2330 ml 920 ml Output Total 4400 ml 1600 ml Balance -2070 ml -680 ml Exam Constitutional: alert, oriented, well developed Psych: nl mood/affect, no complaints Head: atraumatic, normocephalic Eyes: EOMI, nl conjunctiva, nl lids ENMT: nl external ears & nose, nl lips & teeth, nl nasal mucosa & septum Neck: non-tender, supple Respiratory: clear to auscultation, normal air movement Cardiovascular: nl pulses, regular rate and rhythm Gastrointestinal: bowel sounds, soft Results Result Diagram: 07/06/16 0516 07/06/16 0516 Results 24 hrs Laboratory Tests Test 07/05/16 14:55 07/06/16 05:16 Platelet Count 93 L 101 #L Prothrombin Time 15.3 H Prothrombin Time Ratio 1.2 INR International Normalized Ratio 1.20 Activated Partial Thromboplast Time 41.1 H Thrombin Time 15.4 Fibrinogen 470.0 H Plasma Fibrin Degradation Products <10 D-Dimer 538.35 H D-Dimer Comment White Blood Count 2.4 L Red Blood Count 2.88 L Hemoglobin 8.9 L Hematocrit 26.1 L Mean Corpuscular Volume 90.6 Mean Corpuscular Hemoglobin 30.9 Mean Corpuscular Hemoglobin Concent 34.1 Red Cell Distribution Width 23.6 H Mean Platelet Volume 11.9 H Neutrophils % 39.6 Lymphocytes % 27.6 Monocytes % 29.2 H Eosinophils % 1.6 Basophils % 1.6 Nucleated Red Blood Cells % 0.0 Neutrophils # 1.0 L Lymphocytes # 0.7 L Monocytes # 0.7 Eosinophils # 0.0 Basophils # 0.0 Nucleated Red Blood Cells # 0.0 Sodium Level 137 Potassium Level 4.0 Chloride Level 104 Carbon Dioxide Level 21 Anion Gap 16 Blood Urea Nitrogen 14 Creatinine 0.55 L Glucose Level 87 Calcium Level 9.0 Medications Medications Current Medications Sodium Chloride (NS) 1,000 ml @ 40 mls/hr Q24H IV Last administered on 21:00; Admin Dose 40 MLS/HR; Start 07/03/16 at 17:48 Acetaminophen (Tylenol Tab) 650 mg Q6H PRN PO PAIN LEVEL 1-3 OR FEVER; Start at 18:00 Acetaminophen/ Hydrocodone Bitart ([place] (5/325)) 1 tab Q6H PRN PO MODERATE PAIN LEVEL 4-6; Start 07/03/16 at 18:00 Zolpidem Tartrate (Ambien) 5 mg QHS PRN PO SLEEP Last administered on 21:56; Admin Dose 5 MG; Start 07/03/16 at 18:00 Pantoprazole 40 mg 40 mg DAILY@06 IV Last administered on 07/06/16 05:24; Admin Dose 40 MG; Start 07/04/16 at 06:00 Ceftriaxone Sodium (Rocephin) 50 ml @ 100 mls/hr Q24H IVPB Last administered on 07/05/16 19:56; Admin Dose 100 MLS/HR; Start 07/03/16 at 20:00 Docusate Sodium (Colace) 100 mg BID PO Last administered on 07/06/16 09:32; Admin Dose 100 MG; Start 07/03/16 at 21:00 Folic Acid (Folic Acid) 1 mg DAILY PO Last administered on 07/06/16 09:32; Admin Dose 1 MG; Start 07/04/16 at 09:00 Ondansetron HCl (Zofran Inj) 2 mg Q6H PRN IV NAUSEA AND/OR VOMITING; Start at 18:30 Senna (Senokot) 1 tab HS PRN PO CONSTIPATION; Start 07/03/16 at 21:00 Guaifenesin/ Dextromethorphan (Robitussin Dm Liquid Cup) 10 ml Q4H PRN PO COUGH Last administered on 07/05/16 09:31; Admin Dose 10 ML; Start 07/03/16 at 20:30 Lorazepam (Ativan) 2 mg Q4H PRN IV ANXIETY Last administered on 07/06/16 09:34 ; Admin Dose 2 MG; Start 07/04/16 at 13:30 Morphine Sulfate (morphine) 3 mg Q4H PRN IV Pain Last administered on 05:30; Admin Dose 3 MG; Start 07/04/16 at 19:00 ARTUR TURPIN MD July 06, 2016 14:56
--- NOTE | 2016-07-06 17:14 | PN ---
Date/Time of Note Date/Time of Note DATE: 07/06/16 TIME: 17:13 Assessment/Plan VTE Prophylaxis VTE Prophylaxis Intervention: other Lines/Catheters IV Catheter Type (from Nrs): Saline Lock Assessment/Plan Chief Complaint/Hosp Course S/P GI BLEED ANEMIA CH ABD WOUND ETOH ABUSE PLAN PER GI Problems: Subjective 24 Hr Interval Summary Cardiovascular: no complaints Gastrointestinal: no complaints Exam/Review of Systems Vital Signs Vitals Vital Signs Date Time Temp Pulse Resp B/P Pulse Ox O2 Delivery O2 Flow Rate FiO2 07/06/16 07:15 97.5 66 20 94/61 98 Intake and Output 07/05/16 07/05/16 07/06/16 15:00 23:00 07:00 Intake Total 2330 ml 920 ml Output Total 4400 ml 1600 ml Balance -2070 ml -680 ml Exam Respiratory: clear to auscultation Cardiovascular: regular rate and rhythm Gastrointestinal: bowel sounds (+), soft Extremities: No edema Results Result Diagram: 07/06/16 0516 07/06/16 0516 Results 24 hrs Laboratory Tests Test 07/06/16 05:16 White Blood Count 2.4 L Red Blood Count 2.88 L Hemoglobin 8.9 L Hematocrit 26.1 L Mean Corpuscular Volume 90.6 Mean Corpuscular Hemoglobin 30.9 Mean Corpuscular Hemoglobin Concent 34.1 Red Cell Distribution Width 23.6 H Platelet Count 101 #L Mean Platelet Volume 11.9 H Neutrophils % 39.6 Lymphocytes % 27.6 Monocytes % 29.2 H Eosinophils % 1.6 Basophils % 1.6 Nucleated Red Blood Cells % 0.0 Neutrophils # 1.0 L Lymphocytes # 0.7 L Monocytes # 0.7 Eosinophils # 0.0 Basophils # 0.0 Nucleated Red Blood Cells # 0.0 Sodium Level 137 Potassium Level 4.0 Chloride Level 104 Carbon Dioxide Level 21 Anion Gap 16 Blood Urea Nitrogen 14 Creatinine 0.55 L Glucose Level 87 Calcium Level 9.0 Medications Medications Current Medications Sodium Chloride (NS) 1,000 ml @ 40 mls/hr Q24H IV Last administered on t 21:00; Admin Dose 40 MLS/HR; Start 07/03/16 at 17:48 Acetaminophen (Tylenol Tab) 650 mg Q6H PRN PO PAIN LEVEL 1-3 OR FEVER; Start at 18:00 Acetaminophen/ Hydrocodone Bitart ([place] (5/325)) 1 tab Q6H PRN PO MODERATE PAIN LEVEL 4-6; Start 07/03/16 at 18:00 Zolpidem Tartrate (Ambien) 5 mg QHS PRN PO SLEEP Last administered on 21:56; Admin Dose 5 MG; Start 07/03/16 at 18:00 Pantoprazole 40 mg 40 mg DAILY@06 IV Last administered on 07/06/16 05:24; Admin Dose 40 MG; Start 07/04/16 at 06:00 Ceftriaxone Sodium (Rocephin) 50 ml @ 100 mls/hr Q24H IVPB Last administered on 07/05/16 19:56; Admin Dose 100 MLS/HR; Start 07/03/16 at 20:00 Docusate Sodium (Colace) 100 mg BID PO Last administered on 07/06/16 09:32; Admin Dose 100 MG; Start 07/03/16 at 21:00 Folic Acid (Folic Acid) 1 mg DAILY PO Last administered on 07/06/16 09:32; Admin Dose 1 MG; Start 07/04/16 at 09:00 Ondansetron HCl (Zofran Inj) 2 mg Q6H PRN IV NAUSEA AND/OR VOMITING; Start at 18:30 Senna (Senokot) 1 tab HS PRN PO CONSTIPATION; Start 07/03/16 at 21:00 Guaifenesin/ Dextromethorphan (Robitussin Dm Liquid Cup) 10 ml Q4H PRN PO COUGH Last administered on 07/05/16 09:31; Admin Dose 10 ML; Start 07/03/16 at 20:30 Lorazepam (Ativan) 2 mg Q4H PRN IV ANXIETY Last administered on 07/06/16 09:34 ; Admin Dose 2 MG; Start 07/04/16 at 13:30 Morphine Sulfate (morphine) 3 mg Q4H PRN IV Pain Last administered on 14:58; Admin Dose 3 MG; Start 07/04/16 at 19:00 LANCE RIVAS MD July 06, 2016 17:14
[2016-07-06] MEDS: SOD CHLORIDE 0.9% 1,000 ML IV SCH ×2 (17:48→22:14)
[2016-07-06 19:40] VITALS: BP 99/60; RESP 20
[2016-07-06] MEDS: CEFTRIAXONE 1 GM/50 ML (PMX) 50 ML IVPB SCH (20:06)
[2016-07-06] MEDS: GUAIFENESIN/DM 5ML CUP PO PRN (20:11)
--- NOTE | 2016-07-06 21:23 | PN ---
Date/Time of Note Date/Time of Note DATE: 07/06/16 TIME: 21:23 Assessment/Plan Lines/Catheters IV [facility]from [facility]): Saline Lock Assessment/Plan Chief Complaint/Hosp Course 1. Upper midline chronic wound versus enterocutaneous fistula -Fistulogram -Local care -Nutritional optimization -Vitamin C 2. Bleeding from ileostomy and wound stabilized -Monitor 3. Cirrhosis with fatty liver with questionable liver lesions -Will benefit from triple phase contrast CT scan -GI consultation 4. Pancytopenia secondary to alcoholism and liver disease -Medical and hematologic optimization 5. Hypoalbuminemia, multifactorial -Nutritional optimization -Encourage alcohol cessation 6. Alcoholism -Encourage cessation however patient has tried sober living unsuccessfully due to multiple factors 7. Abnormal LFTs, hyperbilirubinemia, and elevated alkaline phosphatase secondary to above -As above 8. Hyperlipidemia -Diet and medication optimization Thank you, Problems: Subjective 24 Hr Interval Summary No bleeding. No f/c. No n/v. No cp/sob. No cough. No guerra/dizzy/visual or neuro changes. Bowel function. Exam/Review of Systems Vital Signs Vitals Vital Signs Date Time Temp Pulse Resp B/P Pulse Ox O2 Delivery O2 Flow Rate FiO2 07/06/16 19:40 98.5 72 20 99/60 97 Intake and Output 07/05/16 07/05/16 07/06/16 15:00 23:00 07:00 Intake Total 2330 ml 920 ml Output Total 4400 ml 1600 ml Balance -2070 ml -680 ml Exam Free Text/Dictation Constitutional: alert, oriented, No distress Psych: other (Flat affect), No anxiety, No confusion, No nl mood/affect Head: atraumatic, normocephalic Eyes: EOMI, PERRL, nl conjunctiva, No icteric ENMT: mucosa pink and moist, nl external ears & nose, nl lips & teeth Neck: non-tender, supple Respiratory: normal air movement, No congested cough, No diminished breath sounds, No labored breathing Cardiovascular: regular rate and rhythm, No edema Gastrointestinal: other (Right lower quadrant ileostomy. Umbilical hernia. Upper midline open wound with minimal drainage (questionable enterocutaneous fistula versus chronic wound)), soft, No distended, No rebound or guarding Genitourinary - Male: nl penis, nl scrotum Musculoskeletal: nl extremities to inspection, nl gait and stance, No joint tenderness Extremities: normal pulses, No calf tenderness Neurological: nl mental status, nl speech, nl strength Skin: nl turgor, No diaphoresis, No rash or lesions Lymph: nl lymph nodes Results Result Diagram: 07/06/16 0516 07/06/16 0516 JOON SHORT MD July 06, 2016 21:23
[2016-07-06] MEDS: ZOLPIDEM 5 MG TAB PO PRN (22:12)
[2016-07-07] MEDS: morphine 4 MG/ML VIAL IV PRN ×5 (03:28→22:55)
[2016-07-07] MEDS: PANTOPRAZOLE 40 MG INJ IV SCH (05:54)
[2016-07-07] MEDS: LORAZEPAM 2 MG INJ IV PRN ×2 (05:58→21:12)
[2016-07-07 07:23] VITALS: BP 92/56; RESP 20
[2016-07-07] MEDS: FOLIC ACID 1 MG TAB PO SCH (09:08)
[2016-07-07] MEDS: DOCUSATE SODIUM 100 MG CAP PO SCH ×2 (09:08→21:11)
--- NOTE | 2016-07-07 13:15 | PN ---
Date/Time of Note Date/Time of Note DATE: 07/07/16 TIME: 13:14 Assessment/Plan VTE Prophylaxis VTE Prophylaxis Intervention: ambulation Lines/Catheters IV Catheter Type (from Nrsg): Peripheral IV Assessment/Plan Chief Complaint/Hosp Course 1.GI bleed from ileostomy and unhealed incision wound 2. Anemia 3. ETOH abuse 4. Liver cirrhosis with low platelet 5. Hs of colectomy with ileostomy formation 2 years ago 6. hepatitis C 7. Unhealed abdominal incision after exploratory laparotomy 2 years ago 8. Nicotine dependency 9. Homelessness. Problems: Assessment/Plan 1. Placement to SNF Subjective 24 Hr Interval Summary Constitutional: improved Respiratory: no complaints Cardiovascular: no complaints Gastrointestinal: no complaints Exam/Review of Systems Vital Signs Vitals Vital Signs Date Time Temp Pulse Resp B/P Pulse Ox O2 Delivery O2 Flow Rate FiO2 07/07/16 07:23 98.8 68 20 92/56 96 Intake and Output 07/06/16 07/06/16 07/07/16 15:00 23:00 07:00 Intake Total 3070 ml 280 ml Output Total 3875 ml Balance -805 ml 280 ml Exam Eyes: nl conjunctiva ENMT: nl external ears & nose Neck: supple Respiratory: clear to auscultation Cardiovascular: regular rate and rhythm Skin: other (pain in abdomen) Results Result Diagram: 07/06/1616 07/06/16515 Medications Medications Current Medications Sodium Chloride (NS) 1,000 ml @ 40 mls/hr Q24H IV Last administered on 22:14; Admin Dose 40 MLS/HR; Start 07/03/16 at 17:48 Acetaminophen (Tylenol Tab) 650 mg Q6H PRN PO PAIN LEVEL 1-3 OR FEVER; Start at 18:00 Acetaminophen/ Hydrocodone Bitart ([place] (5/325)) 1 tab Q6H PRN PO MODERATE PAIN LEVEL 4-6; Start 07/03/16 at 18:00 Zolpidem Tartrate (Ambien) 5 mg QHS PRN PO SLEEP Last administered on 22:12; Admin Dose 5 MG; Start 07/03/16 at 18:00 Pantoprazole 40 mg 40 mg DAILY@06 IV Last administered on 07/07/16 05:54; Admin Dose 40 MG; Start 07/04/16 at 06:00 Ceftriaxone Sodium (Rocephin) 50 ml @ 100 mls/hr Q24H IVPB Last administered on 07/06/16 20:06; Admin Dose 100 MLS/HR; Start 07/03/16 at 20:00 Docusate Sodium (Colace) 100 mg BID PO Last administered on 07/07/16 09:08; Admin Dose 100 MG; Start 07/03/16 at 21:00 Folic Acid (Folic Acid) 1 mg DAILY PO Last administered on 07/07/16 09:08; Admin Dose 1 MG; Start 07/04/16 at 09:00 Ondansetron HCl (Zofran Inj) 2 mg Q6H PRN IV NAUSEA AND/OR VOMITING; Start at 18:30 Senna (Senokot) 1 tab HS PRN PO CONSTIPATION; Start 07/03/16 at 21:00 Guaifenesin/ Dextromethorphan (Robitussin Dm Liquid Cup) 10 ml Q4H PRN PO COUGH Last administered on 07/06/16 20:11; Admin Dose 10 ML; Start 07/03/16 at 20:30 Lorazepam (Ativan) 2 mg Q4H PRN IV ANXIETY Last administered on 07/07/16 05:58 ; Admin Dose 2 MG; Start 07/04/16 at 13:30 Morphine Sulfate (morphine) 3 mg Q4H PRN IV Pain Last administered on 09:08; Admin Dose 3 MG; Start 07/04/16 at 19:00 ESTRELLITA BENITEZ July 07, 2016 13:15
--- NOTE | 2016-07-07 13:19 | CONS ---
Date/Time of Note Date/Time of Note DATE: 07/07/16 TIME: 13:18 Assessment/Plan Assessment/Plan Chief Complaint/Hosp Course IMPRESSION: 1. Upper midline chronic wound versus enterocutaneous fistula 2. Bleeding from ileostomy and wound: resolved 3. Triple phase CT did not show liver lesion so unlikely to have liver malignancy 4. Pancytopenia secondary to alcoholism and liver disease 5. Hypoalbuminemia, multifactorial 6. Alcoholic cirrhosis 7. Abnormal LFTs, hyperbilirubinemia, and elevated alkaline phosphatase secondary to above RECOMMENDATIONS: 1. Nutritional optimization AND Vitamin C to help with healing of abdominal wound and possible fistula 2. monitor h/h and ileostomy bleed. If bleeding recurs, consider EGD and ileoscopy for hemostasis. 3. management of possible enterocutaneous fistula per surgery Dr. Leach 4. Encourage alcohol cessation 5. Dr. Olson to resume care of this patient tomorrow Problems: Consultation Date/Type/Reason Admit Date/Time July 03, 2016 at 16:40 Initial Consult Date 07/04/16 Type of Consultation: GI Referring Provider: LANCE RIVAS MD 24 HR Interval Summary Free Text/Dictation tolerating po, awaiting placement to snf Exam/Review of Systems Vital Signs Vitals Vital Signs Date Time Temp Pulse Resp B/P Pulse Ox O2 Delivery O2 Flow Rate FiO2 07/07/16 07:23 98.8 68 20 92/56 96 Intake and Output 07/06/16 07/06/16 07/07/16 15:00 23:00 07:00 Intake Total 3070 ml 280 ml Output Total 3875 ml Balance -805 ml 280 ml Exam Constitutional: alert, oriented, well developed Psych: nl mood/affect, no complaints Head: atraumatic, normocephalic Eyes: EOMI, nl conjunctiva, nl lids, nl sclera ENMT: mucosa pink and moist, nl external ears & nose, nl lips & teeth, nl nasal mucosa & septum Neck: non-tender, supple Respiratory: clear to auscultation, normal air movement Cardiovascular: nl pulses, regular rate and rhythm Gastrointestinal: bowel sounds, other (Right lower quadrant ileostomy. Umbilical hernia. Upper midline open wound with minimal drainage (questionable enterocutaneous fistula versus chronic wound)), soft Results Result Diagram: 07/06/16 0516 07/06/16 0516 Medications Medications Current Medications Sodium Chloride (NS) 1,000 ml @ 40 mls/hr Q24H IV Last administered on 22:14; Admin Dose 40 MLS/HR; Start 07/03/16 at 17:48 Acetaminophen (Tylenol Tab) 650 mg Q6H PRN PO PAIN LEVEL 1-3 OR FEVER; Start at 18:00 Acetaminophen/ Hydrocodone Bitart ([place] (5/325)) 1 tab Q6H PRN PO MODERATE PAIN LEVEL 4-6; Start 07/03/16 at 18:00 Zolpidem Tartrate (Ambien) 5 mg QHS PRN PO SLEEP Last administered on 22:12; Admin Dose 5 MG; Start 07/03/16 at 18:00 Pantoprazole 40 mg 40 mg DAILY@06 IV Last administered on 07/07/16 05:54; Admin Dose 40 MG; Start 07/04/16 at 06:00 Ceftriaxone Sodium (Rocephin) 50 ml @ 100 mls/hr Q24H IVPB Last administered on 07/06/16 20:06; Admin Dose 100 MLS/HR; Start 07/03/16 at 20:00 Docusate Sodium (Colace) 100 mg BID PO Last administered on 07/07/16 09:08; Admin Dose 100 MG; Start 07/03/16 at 21:00 Folic Acid (Folic Acid) 1 mg DAILY PO Last administered on 07/07/16 09:08; Admin Dose 1 MG; Start 07/04/16 at 09:00 Ondansetron HCl (Zofran Inj) 2 mg Q6H PRN IV NAUSEA AND/OR VOMITING; Start at 18:30 Senna (Senokot) 1 tab HS PRN PO CONSTIPATION; Start 07/03/16 at 21:00 Guaifenesin/ Dextromethorphan (Robitussin Dm Liquid Cup) 10 ml Q4H PRN PO COUGH Last administered on 07/06/16 20:11; Admin Dose 10 ML; Start 07/03/16 at 20:30 Lorazepam (Ativan) 2 mg Q4H PRN IV ANXIETY Last administered on 07/07/16 05:58 ; Admin Dose 2 MG; Start 07/04/16 at 13:30 Morphine Sulfate (morphine) 3 mg Q4H PRN IV Pain Last administered on 09:08; Admin Dose 3 MG; Start 07/04/16 at 19:00 ARTUR TURPIN MD July 07, 2016 13:19
--- NOTE | 2016-07-07 13:36 | PN ---
Date/Time of Note Date/Time of Note DATE: 07/07/16 TIME: 13:35 Assessment/Plan Lines/Catheters IV [facility] (from [facility]): Peripheral IV Assessment/Plan Chief Complaint/Hosp Course 1. Upper midline chronic wound versus enterocutaneous fistula -Fistulogram pending -Local care -Nutritional optimization -Vitamin C 2. Bleeding from ileostomy and wound stabilized -Monitor 3. Cirrhosis with fatty liver -Will benefit from triple phase contrast CT scan -GI consultation 4. Pancytopenia secondary to alcoholism and liver disease -Medical and hematologic optimization 5. Hypoalbuminemia, multifactorial -Nutritional optimization -Encourage alcohol cessation 6. Alcoholism -Encourage cessation however patient has tried sober living unsuccessfully due to multiple factors 7. Abnormal LFTs, hyperbilirubinemia, and elevated alkaline phosphatase secondary to above -As above 8. Hyperlipidemia -Diet and medication optimization Thank you, Problems: Subjective 24 Hr Interval Summary No bleeding. No f/c. No n/v. No cp/sob. No cough. No guerra/dizzy/visual or neuro changes. Bowel function. CT noted. Exam/Review of Systems Vital Signs Vitals Vital Signs Date Time Temp Pulse Resp B/P Pulse Ox O2 Delivery O2 Flow Rate FiO2 07/07/16 07:23 98.8 68 20 92/56 96 Intake and Output 07/06/16 07/06/16 07/07/16 15:00 23:00 07:00 Intake Total 3070 ml 280 ml Output Total 3875 ml Balance -805 ml 280 ml Exam Free Text/Dictation Constitutional: alert, oriented, No distress Psych: other (Flat affect), No anxiety, No confusion, No nl mood/affect Head: atraumatic, normocephalic Eyes: EOMI, PERRL, nl conjunctiva, No icteric ENMT: mucosa pink and moist, nl external ears & nose, nl lips & teeth Neck: non-tender, supple Respiratory: normal air movement, No congested cough, No diminished breath sounds, No labored breathing Cardiovascular: regular rate and rhythm, No edema Gastrointestinal: other (Right lower quadrant ileostomy. Umbilical hernia. Upper midline open wound with minimal drainage (questionable enterocutaneous fistula versus chronic wound)), soft, No distended, No rebound or guarding Genitourinary - Male: nl penis, nl scrotum Musculoskeletal: nl extremities to inspection, nl gait and stance, No joint tenderness Extremities: normal pulses, No calf tenderness Neurological: nl mental status, nl speech, nl strength Skin: nl turgor, No diaphoresis, No rash or lesions Lymph: nl lymph nodes Results Result Diagram: 07/06/16 0516 07/06/16 0516 JOON SHORT MD July 07, 2016 13:36
[2016-07-07] MEDS: SOD CHLORIDE 0.9% 1,000 ML IV SCH ×2 (17:48→22:59)
[2016-07-07 20:00] VITALS: BP 107/71; RESP 18
[2016-07-07] MEDS: CEFTRIAXONE 1 GM/50 ML (PMX) 50 ML IVPB SCH (21:12)
[2016-07-07] MEDS: ZOLPIDEM 5 MG TAB PO PRN (22:54)
[2016-07-08] MEDS: LORAZEPAM 2 MG INJ IV PRN ×2 (02:15→19:59)
[2016-07-08] MEDS: PANTOPRAZOLE 40 MG INJ IV SCH (05:33)
[2016-07-08 07:53] VITALS: BP 125/66; RESP 20
[2016-07-08] MEDS: morphine 4 MG/ML VIAL IV PRN ×3 (08:24→22:32)
[2016-07-08] MEDS ORDERED: DIATR MEGLU/DIATRIZOATE SODIUM 120 ML BTL ONE (08:39)
--- NOTE | 2016-07-08 09:36 | PN ---
DATE: 07/04/2016 GASTROENTEROLOGY CONSULT FOLLOWUP SUBJECTIVE: The patient is a 56-year-old male with cirrhosis of liver who has urostomy and colostom y. The patient had bleeding from colostomy secondary to bleeding from the capillary. He also had a CAT scan done at [facility] which shows herniation of the parastomal hernia, and also the artery was herniating through the stoma. No further bleeding was noticed. The patient also had mary ck stool in ileostomy bag and underwent endoscopy by me. Two duodenal ulcers were identified as the cause of bleeding. No varicose veins were seen. The patient's bleeding had stopped at [facility]. Stool became normal in color, and hematocrit remained stable; however, for insurance purposes, the patient was transferred to this facility. OBJECTIVE: VITAL SIGNS: Stable. ABDOMEN: Benign. LUNGS: Clear. EXTREMITIES: No edema. CENTRAL NERVOUS SYSTEM: Grossly within normal limits. IMPRESSION: 1. Anemia which is multifactorial, but the patient had GI bleeding from two duodenal ulcers 2. Also had bleeding from the capillary of the stomach which spontaneously stopped. 3. Cirrhosis of liver. 4. Pancytopenia secondary to alcoholism and liver disease. 5. History of ethanol abuse. PLAN: Continue PPI and monitor H and H. Dictated By: SINAN DOW/MILLER Conf#: [id number] DID#: [id number]
--- NOTE | 2016-07-08 10:16 | RADRPT ---
AMENDMENT: 07/08/2016 11:02:18 AM Esa Pennington MD Fluoroscopy time: 0.5 minute PROCEDURE: Fistula/sinus tract injection with intravenous contrast CLINICAL INDICATION: Colocutaneous fistula TECHNIQUE: Gastrographin was injected through a short 5-Romansh catheter placed through an open wou nd in the epigastrium and multiple fluoroscopic images were obtained over the abdomen. COMPARISON: CT abdomen/pelvis from 07/04/2016 FINDINGS: Contrast injection via the 5-Romansh catheter in the open wound in the epigastrium opacifies loops of transverse colon consistent a colocutaneous fistula. No peritoneal contrast extravasation was iden tified. RPTAT: AA IMPRESSION: Patent colocutaneous fistula, consistent with the appearance on the recent CT study from 07/04/2016. Physician Anila Date Time Electronically viewed and signed by Hema Pennington Physician on 07/08/2016 11:02 /
[2016-07-08] MEDS: DOCUSATE SODIUM 100 MG CAP PO SCH ×2 (11:31→20:04)
[2016-07-08] MEDS: FOLIC ACID 1 MG TAB PO SCH (11:31)
--- NOTE | 2016-07-08 16:20 | CONS ---
Date/Time of Note Date/Time of Note DATE: 07/08/16 TIME: 16:18 Assessment/Plan Assessment/Plan Chief Complaint/Hosp Course 56 yo male with Hep C and EtOH cirrhosis who presents with a chronic abdominal wound #Thrombocytopenia - this is likely secondary to patient's underlying cirrhosis as well as bleeding. platelets continue to improving -TTP unlikely as LDH is normal. f/u DIC panel -given pt is not actively bleeding would not transfuse platelets at this time # Anemia - this is also likely secondary to underlying cirrhosis as well as GI blood loss from duodenal ulcers -will check anemia panel including iron studies, vit b12/ folate and hemolysis labs #Innumerable liver lesions -triple phase dedicated liver CT did not show evidence of HCC. furthermore AFP is 4. I am therefore not concerned for underlying malignancy at this time -AFP wnl Problems: Consultation Date/Type/Reason Admit Date/Time July 03, 2016 at 16:40 Initial Consult Date 07/04/16 Type of Consultation: Hematology Reason for Consultation anemia Referring Provider: LANCE RIVAS MD 24 HR Interval Summary Free Text/Dictation pt is no longer bleeding from ostomy Exam/Review of Systems Vital Signs Vitals Vital Signs Date Time Temp Pulse Resp B/P Pulse Ox O2 Delivery O2 Flow Rate FiO2 07/08/16 07:53 97.7 71 20 125/66 98 Intake and Output 07/07/16 07/07/16 07/08/16 15:00 23:00 07:00 Intake Total 1200 ml 3770 ml 1901.4 ml Output Total 2650 ml 3575 ml 2250 ml Balance -1450 ml 195 ml -348.6 ml Exam Constitutional: alert, oriented Psych: nl mood/affect, no complaints Head: normocephalic Eyes: nl conjunctiva ENMT: nl external ears & nose Neck: non-tender, supple Respiratory: clear to auscultation, normal air movement Cardiovascular: regular rate and rhythm Gastrointestinal: other (ostomy in place) Musculoskeletal: nl extremities to inspection Extremities: normal pulses Results Result Diagram: 07/06/1651507/06/16515 Medications Medications Current Medications Sodium Chloride (NS) 1,000 ml @ 40 mls/hr Q24H IV Last administered on t 22:59; Admin Dose 40 MLS/HR; Start 07/03/16 at 17:48 Acetaminophen (Tylenol Tab) 650 mg Q6H PRN PO PAIN LEVEL 1-3 OR FEVER; Start at 18:00 Acetaminophen/ Hydrocodone Bitart ([place] (5/325)) 1 tab Q6H PRN PO MODERATE PAIN LEVEL 4-6; Start 07/03/16 at 18:00 Zolpidem Tartrate (Ambien) 5 mg QHS PRN PO SLEEP Last administered on 22:54; Admin Dose 5 MG; Start 07/03/16 at 18:00 Pantoprazole 40 mg 40 mg DAILY@06 IV Last administered on 07/08/16 05:33; Admin Dose 40 MG; Start 07/04/16 at 06:00 Ceftriaxone Sodium (Rocephin) 50 ml @ 100 mls/hr Q24H IVPB Last administered on 07/07/16 21:12; Admin Dose 100 MLS/HR; Start 07/03/16 at 20:00 Docusate Sodium (Colace) 100 mg BID PO Last administered on 07/08/16 11:31; Admin Dose 100 MG; Start 07/03/16 at 21:00 Folic Acid (Folic Acid) 1 mg DAILY PO Last administered on 07/08/16 11:31; Admin Dose 1 MG; Start 07/04/16 at 09:00 Ondansetron HCl (Zofran Inj) 2 mg Q6H PRN IV NAUSEA AND/OR VOMITING; Start at 18:30 Senna (Senokot) 1 tab HS PRN PO CONSTIPATION; Start 07/03/16 at 21:00 Guaifenesin/ Dextromethorphan (Robitussin Dm Liquid Cup) 10 ml Q4H PRN PO COUGH Last administered on 07/06/16 20:11; Admin Dose 10 ML; Start 07/03/16 at 20:30 Lorazepam (Ativan) 2 mg Q4H PRN IV ANXIETY Last administered on 07/08/16 02:15 ; Admin Dose 2 MG; Start 07/04/16 at 13:30 Morphine Sulfate (morphine) 3 mg Q4H PRN IV Pain Last administered on 16:01; Admin Dose 3 MG; Start 07/04/16 at 19:00 REJI SCHMID M.D. July 08, 2016 16:20
[2016-07-08 19:54] VITALS: BP 103/61; RESP 20
[2016-07-08] MEDS: CEFTRIAXONE 1 GM/50 ML (PMX) 50 ML IVPB SCH (19:55)
--- NOTE | 2016-07-08 21:13 | CONS ---
Date/Time of Note Date/Time of Note DATE: 07/08/16 TIME: 21:12 Assessment/Plan Assessment/Plan Additional Assessment/Plan IMPRESSION: 1. Upper midline chronic wound versus enterocutaneous fistula 2. Bleeding from ileostomy and wound: resolved 3. Triple phase CT did not show liver lesion so unlikely to have liver malignancy 4. Pancytopenia secondary to alcoholism and liver disease 5. Hypoalbuminemia, multifactorial 6. Alcoholic cirrhosis 7. Abnormal LFTs, hyperbilirubinemia, and elevated alkaline phosphatase secondary to above RECOMMENDATIONS: 1. Nutritional optimization AND Vitamin C to help with healing of abdominal wound and possible fistula 2. monitor h/h and ileostomy bleed. If bleeding recurs, consider EGD and ileoscopy for hemostasis. 3. management of possible enterocutaneous fistula per surgery Dr. Leach 4. Encourage alcohol cessation Consultation Date/Type/Reason Admit Date/Time July 03, 2016 at 16:40 Initial Consult Date 07/04/16 Type of Consultation: Hematology Referring Provider: LANCE RIVAS MD 24 HR Interval Summary Constitutional: improved Exam/Review of Systems Vital Signs Vitals Vital Signs Date Time Temp Pulse Resp B/P Pulse Ox O2 Delivery O2 Flow Rate FiO2 07/08/16 19:54 97.9 74 20 103/61 98 Intake and Output 07/07/16 07/07/16 07/08/16 15:00 23:00 07:00 Intake Total 1200 ml 3770 ml 1901.4 ml Output Total 2650 ml 3575 ml 2250 ml Balance -1450 ml 195 ml -348.6 ml Exam Constitutional: alert, oriented, well developed Psych: nl mood/affect, no complaints Head: atraumatic, normocephalic Eyes: EOMI, PERRL, nl conjunctiva, nl lids, nl sclera ENMT: nl external ears & nose, nl lips & teeth, nl nasal mucosa & septum Neck: non-tender, supple Respiratory: clear to auscultation, normal air movement Cardiovascular: nl pulses, regular rate and rhythm Gastrointestinal: nl liver, spleen, non-tender, soft Musculoskeletal: nl extremities to inspection, nl gait and stance Extremities: normal pulses Neurological: NON FERROUS MATERIAL HANDLER II-XII intact, nl mental status, nl speech, nl strength Skin: nl turgor, No rash or lesions Lymph: nl lymph nodes Results Result Diagram: 5/28/17 0516 5/28/17 0516 Medications Medications Current Medications Sodium Chloride (NS) 1,000 ml @ 40 mls/hr Q24H IV Last administered on 22:59; Admin Dose 40 MLS/HR; Start 07/03/16 at 17:48 Acetaminophen (Tylenol Tab) 650 mg Q6H PRN PO PAIN LEVEL 1-3 OR FEVER; Start at 18:00 Acetaminophen/ Hydrocodone Bitart ([place] (5/325)) 1 tab Q6H PRN PO MODERATE PAIN LEVEL 4-6; Start 07/03/16 at 18:00 Zolpidem Tartrate (Ambien) 5 mg QHS PRN PO SLEEP Last administered on 22:54; Admin Dose 5 MG; Start 07/03/16 at 18:00 Pantoprazole 40 mg 40 mg DAILY@06 IV Last administered on 07/08/16 05:33; Admin Dose 40 MG; Start 07/04/16 at 06:00 Ceftriaxone Sodium (Rocephin) 50 ml @ 100 mls/hr Q24H IVPB Last administered on 07/08/16 19:55; Admin Dose 100 MLS/HR; Start 07/03/16 at 20:00 Docusate Sodium (Colace) 100 mg BID PO Last administered on 07/08/16 20:04; Admin Dose 100 MG; Start 07/03/16 at 21:00 Folic Acid (Folic Acid) 1 mg DAILY PO Last administered on 07/08/16 11:31; Admin Dose 1 MG; Start 07/04/16 at 09:00 Ondansetron HCl (Zofran Inj) 2 mg Q6H PRN IV NAUSEA AND/OR VOMITING; Start at 18:30 Senna (Senokot) 1 tab HS PRN PO CONSTIPATION; Start 07/03/16 at 21:00 Guaifenesin/ Dextromethorphan (Robitussin Dm Liquid Cup) 10 ml Q4H PRN PO COUGH Last administered on 07/06/16 20:11; Admin Dose 10 ML; Start 07/03/16 at 20:30 Lorazepam (Ativan) 2 mg Q4H PRN IV ANXIETY Last administered on 07/08/16 19:59 ; Admin Dose 2 MG; Start 07/04/16 at 13:30 Morphine Sulfate (morphine) 3 mg Q4H PRN IV Pain Last administered on t 16:01; Admin Dose 3 MG; Start 07/04/16 at 19:00 SINAN SHERIFF MD July 08, 2016 21:13
[2016-07-08] MEDS: ZOLPIDEM 5 MG TAB PO PRN (23:28)
--- NOTE | 2016-07-08 23:38 | PN ---
Date/Time of Note Date/Time of Note DATE: 07/08/16 TIME: 23:37 Assessment/Plan VTE Prophylaxis VTE Prophylaxis Intervention: other Lines/Catheters IV Catheter Type (from Nrsg): Peripheral IV Assessment/Plan Chief Complaint/Hosp Course S/P GI BLEED ANEMIA CH ABD WOUND colocutan fistula ETOH ABUSE PLAN PER GI and surgery Problems: Subjective 24 Hr Interval Summary Genitourinary: no complaints Musculoskeletal: no complaints Exam/Review of Systems Vital Signs Vitals Vital Signs Date Time Temp Pulse Resp B/P Pulse Ox O2 Delivery O2 Flow Rate FiO2 07/08/16 19:54 97.9 74 20 103/61 98 Intake and Output 07/07/16 07/07/16 07/08/16 15:00 23:00 07:00 Intake Total 1200 ml 3770 ml 1901.4 ml Output Total 2650 ml 3575 ml 2250 ml Balance -1450 ml 195 ml -348.6 ml Exam Respiratory: clear to auscultation Cardiovascular: regular rate and rhythm Gastrointestinal: bowel sounds (+), soft Results Result Diagram: 07/06/1651507/06/16515 Medications Medications Current Medications Sodium Chloride (NS) 1,000 ml @ 40 mls/hr Q24H IV Last administered on 22:59; Admin Dose 40 MLS/HR; Start 07/03/16 at 17:48 Acetaminophen (Tylenol Tab) 650 mg Q6H PRN PO PAIN LEVEL 1-3 OR FEVER; Start at 18:00 Acetaminophen/ Hydrocodone Bitart ([place] (5/325)) 1 tab Q6H PRN PO MODERATE PAIN LEVEL 4-6; Start 07/03/16 at 18:00 Zolpidem Tartrate (Ambien) 5 mg QHS PRN PO SLEEP Last administered on 23:28; Admin Dose 5 MG; Start 07/03/16 at 18:00 Pantoprazole 40 mg 40 mg DAILY@06 IV Last administered on 07/08/16 05:33; Admin Dose 40 MG; Start 07/04/16 at 06:00 Ceftriaxone Sodium (Rocephin) 50 ml @ 100 mls/hr Q24H IVPB Last administered on 07/08/16 19:55; Admin Dose 100 MLS/HR; Start 07/03/16 at 20:00 Docusate Sodium (Colace) 100 mg BID PO Last administered on 07/08/16 20:04; Admin Dose 100 MG; Start 07/03/16 at 21:00 Folic Acid (Folic Acid) 1 mg DAILY PO Last administered on 07/08/16 11:31; Admin Dose 1 MG; Start 07/04/16 at 09:00 Ondansetron HCl (Zofran Inj) 2 mg Q6H PRN IV NAUSEA AND/OR VOMITING; Start at 18:30 Senna (Senokot) 1 tab HS PRN PO CONSTIPATION; Start 07/03/16 at 21:00 Guaifenesin/ Dextromethorphan (Robitussin Dm Liquid Cup) 10 ml Q4H PRN PO COUGH Last administered on 07/06/16 20:11; Admin Dose 10 ML; Start 07/03/16 at 20:30 Lorazepam (Ativan) 2 mg Q4H PRN IV ANXIETY Last administered on 07/08/16 19:59 ; Admin Dose 2 MG; Start 07/04/16 at 13:30 Morphine Sulfate (morphine) 3 mg Q4H PRN IV Pain Last administered on 22:32; Admin Dose 3 MG; Start 07/04/16 at 19:00 LANCE RIVAS MD July 08, 2016 23:38
[2016-07-09] MEDS: SOD CHLORIDE 0.9% 1,000 ML IV SCH ×2 (04:53→17:38)
[2016-07-09] MEDS: morphine 4 MG/ML VIAL IV PRN ×4 (04:59→22:59)
[2016-07-09] MEDS: PANTOPRAZOLE 40 MG INJ IV SCH (06:20)
[2016-07-09 07:38] VITALS: BP 115/65; RESP 18
[2016-07-09] MEDS: DOCUSATE SODIUM 100 MG CAP PO SCH ×2 (08:10→20:14)
[2016-07-09] MEDS: FOLIC ACID 1 MG TAB PO SCH (08:10)
[2016-07-09] MEDS: LORAZEPAM 2 MG INJ IV PRN ×3 (08:12→19:46)
--- NOTE | 2016-07-09 14:11 | CONS ---
Date/Time of Note Date/Time of Note DATE: 07/09/16 TIME: 14:09 Assessment/Plan Assessment/Plan Chief Complaint/Hosp Course 56 yo male with Hep C and EtOH cirrhosis who presents with a chronic abdominal wound #Thrombocytopenia - this is likely secondary to patient's underlying cirrhosis as well as bleeding. platelets continue to improving -TTP unlikely as LDH is normal. f/u DIC panel -given pt is not actively bleeding would not transfuse platelets at this time # Anemia - this is also likely secondary to underlying cirrhosis as well as GI blood loss from duodenal ulcers -will check anemia panel including iron studies, vit b12/ folate and hemolysis labs -if bleeding recurs GI to scope -pt is s/p 3 days of IV iron. will order 3 more days #Innumerable liver lesions -triple phase dedicated liver CT did not show evidence of HCC. furthermore AFP is 4. I am therefore not concerned for underlying malignancy at this time -AFP wnl Problems: Consultation Date/Type/Reason Admit Date/Time July 03, 2016 at 16:40 Initial Consult Date 07/04/16 Type of Consultation: Hematology Reason for Consultation bleeding/ anemia/ thrombocytopenia Referring Provider: LANCE RIVAS MD 24 HR Interval Summary Free Text/Dictation bleeding from ostomy has subsided Exam/Review of Systems Vital Signs Vitals Vital Signs Date Time Temp Pulse Resp B/P Pulse Ox O2 Delivery O2 Flow Rate FiO2 07/09/16 07:38 98.1 71 18 115/65 98 Intake and Output 07/08/16 07/08/16 07/09/16 15:00 23:00 07:00 Intake Total 2230 ml 1298.6 ml Output Total 1100 ml 2250 ml Balance 1130 ml -951.4 ml Exam Constitutional: alert, oriented Psych: no complaints Head: normocephalic Eyes: nl conjunctiva ENMT: nl external ears & nose Neck: non-tender, supple Respiratory: clear to auscultation, normal air movement Cardiovascular: regular rate and rhythm Gastrointestinal: soft Musculoskeletal: nl extremities to inspection, nl gait and stance Extremities: normal pulses Results Result Diagram: 07/06/1651507/06/16515 Medications Medications Current Medications Sodium Chloride (NS) 1,000 ml @ 40 mls/hr Q24H IV Last administered on t 04:53; Admin Dose 40 MLS/HR; Start 07/03/16 at 17:48 Acetaminophen (Tylenol Tab) 650 mg Q6H PRN PO PAIN LEVEL 1-3 OR FEVER; Start at 18:00 Acetaminophen/ Hydrocodone Bitart ([place] (5/325)) 1 tab Q6H PRN PO MODERATE PAIN LEVEL 4-6; Start 07/03/16 at 18:00 Zolpidem Tartrate (Ambien) 5 mg QHS PRN PO SLEEP Last administered on 23:28; Admin Dose 5 MG; Start 07/03/16 at 18:00 Pantoprazole 40 mg 40 mg DAILY@06 IV Last administered on 07/09/16 06:20; Admin Dose 40 MG; Start 07/04/16 at 06:00 Ceftriaxone Sodium (Rocephin) 50 ml @ 100 mls/hr Q24H IVPB Last administered on 07/08/16 19:55; Admin Dose 100 MLS/HR; Start 07/03/16 at 20:00 Docusate Sodium (Colace) 100 mg BID PO Last administered on 07/09/16 08:10; Admin Dose 100 MG; Start 07/03/16 at 21:00 Folic Acid (Folic Acid) 1 mg DAILY PO Last administered on 07/09/16 08:10; Admin Dose 1 MG; Start 07/04/16 at 09:00 Ondansetron HCl (Zofran Inj) 2 mg Q6H PRN IV NAUSEA AND/OR VOMITING; Start at 18:30 Senna (Senokot) 1 tab HS PRN PO CONSTIPATION; Start 07/03/16 at 21:00 Guaifenesin/ Dextromethorphan (Robitussin Dm Liquid Cup) 10 ml Q4H PRN PO COUGH Last administered on 07/06/16 20:11; Admin Dose 10 ML; Start 07/03/16 at 20:30 Lorazepam (Ativan) 2 mg Q4H PRN IV ANXIETY Last administered on 07/09/16 08:12 ; Admin Dose 2 MG; Start 07/04/16 at 13:30 Morphine Sulfate (morphine) 3 mg Q4H PRN IV Pain Last administered on 12:32; Admin Dose 3 MG; Start 07/04/16 at 19:00 REJI SCHMID M.D. July 09, 2016 14:11
[2016-07-09] MEDS: SOD FERRIC GLUC COMPLX 125 MG in SOD CHLORIDE 0.9% 100 ML IVPB SCH (16:05)
[2016-07-09] MEDS: CEFTRIAXONE 1 GM/50 ML (PMX) 50 ML IVPB SCH (19:46)
[2016-07-09 19:59] VITALS: BP 116/71; RESP 20
--- NOTE | 2016-07-09 19:59 | PN ---
Date/Time of Note Date/Time of Note DATE: 07/09/16 TIME: 19:58 Assessment/Plan VTE Prophylaxis VTE Prophylaxis Intervention: other Lines/Catheters IV Catheter Type (from Nrsg): Peripheral IV Assessment/Plan Chief Complaint/Hosp Course S/P GI BLEED ANEMIA CH ABD WOUND coloc[place]an fistula pancytopenia ETOH ABUSE PLAN PER GI and surgery Problems: Subjective 24 Hr Interval Summary Cardiovascular: no complaints Gastrointestinal: no complaints Genitourinary: no complaints Exam/Review of Systems Vital Signs Vitals Vital Signs Date Time Temp Pulse Resp B/P Pulse Ox O2 Delivery O2 Flow Rate FiO2 07/09/16 07:38 98.1 71 18 115/65 98 Intake and Output 07/08/16 07/08/16 07/09/16 15:00 23:00 07:00 Intake Total 2230 ml 1298.6 ml Output Total 1100 ml 2250 ml Balance 1130 ml -951.4 ml Exam Neck: supple Respiratory: clear to auscultation Cardiovascular: regular rate and rhythm Gastrointestinal: bowel sounds (+), soft Results Result Diagram: 07/06/1651507/06/16515 Medications Medications Current Medications Sodium Chloride (NS) 1,000 ml @ 40 mls/hr Q24H IV Last administered on 04:53; Admin Dose 40 MLS/HR; Start 07/03/16 at 17:48 Acetaminophen (Tylenol Tab) 650 mg Q6H PRN PO PAIN LEVEL 1-3 OR FEVER; Start at 18:00 Acetaminophen/ Hydrocodone Bitart ([place] (5/325)) 1 tab Q6H PRN PO MODERATE PAIN LEVEL 4-6; Start 07/03/16 at 18:00 Zolpidem Tartrate (Ambien) 5 mg QHS PRN PO SLEEP Last administered on 23:28; Admin Dose 5 MG; Start 07/03/16 at 18:00 Pantoprazole 40 mg 40 mg DAILY@06 IV Last administered on 07/09/16 06:20; Admin Dose 40 MG; Start 07/04/16 at 06:00 Ceftriaxone Sodium (Rocephin) 50 ml @ 100 mls/hr Q24H IVPB Last administered on 07/09/16 19:46; Admin Dose 100 MLS/HR; Start 07/03/16 at 20:00 Docusate Sodium (Colace) 100 mg BID PO Last administered on 07/09/16 08:10; Admin Dose 100 MG; Start 07/03/16 at 21:00 Folic Acid (Folic Acid) 1 mg DAILY PO Last administered on 07/09/16 08:10; Admin Dose 1 MG; Start 07/04/16 at 09:00 Ondansetron HCl (Zofran Inj) 2 mg Q6H PRN IV NAUSEA AND/OR VOMITING; Start at 18:30 Senna (Senokot) 1 tab HS PRN PO CONSTIPATION; Start 07/03/16 at 21:00 Guaifenesin/ Dextromethorphan (Robitussin Dm Liquid Cup) 10 ml Q4H PRN PO COUGH Last administered on 07/06/16 20:11; Admin Dose 10 ML; Start 07/03/16 at 20:30 Lorazepam (Ativan) 2 mg Q4H PRN IV ANXIETY Last administered on 07/09/16 19:46 ; Admin Dose 2 MG; Start 07/04/16 at 13:30 Morphine Sulfate 3 mg 3 mg Q4H PRN IV Pain Last administered on 07/09/16 16:35 ; Admin Dose 3 MG; Start 07/04/16 at 19:00 Ferric Sodium Gluconate Complex/ Sodium Chloride (Ferrlecit/NS) 110 ml @ 100 mls/hr Q24H IVPB Last administered on 07/09/16 16:05; Admin Dose 100 MLS/HR; Start 07/09/16 at 16:00; Stop 07/11/16 at 17:05 LANCE RIVAS MD July 09, 2016 19:59
--- NOTE | 2016-07-09 20:16 | CONS ---
Date/Time of Note Date/Time of Note DATE: 07/09/16 TIME: 20:14 Assessment/Plan Assessment/Plan Additional Assessment/Plan IMPRESSION: 1. Anemia which is multifactorial, but the patient had GI bleeding from two duodenal ulcers 2. Also had bleeding from the capillary of the stomach which spontaneously stopped. 3. Cirrhosis of liver. 4. Pancytopenia secondary to alcoholism and liver disease. 5. History of ethanol abuse. 6. Colocutaneous fistula Plan Continue PPI I will review fistulogram with the radiologist to look at the site of fistula in the colon. I will also discuss with Dr. Leach. Can make an attempt to close the fistula with over the scope clip endoscopically PLAN: Continue PPI and monitor H and H. Consultation Date/Type/Reason Admit Date/Time July 03, 2016 at 16:40 Initial Consult Date 07/04/16 Type of Consultation: Hematology Referring Provider: LANCE RIVAS MD 24 HR Interval Summary Constitutional: improved Exam/Review of Systems Vital Signs Vitals Vital Signs Date Time Temp Pulse Resp B/P Pulse Ox O2 Delivery O2 Flow Rate FiO2 07/09/16 19:59 97.9 74 20 116/71 99 Intake and Output 07/08/16 07/08/16 07/09/16 15:00 23:00 07:00 Intake Total 2230 ml 1298.6 ml Output Total 1100 ml 2250 ml Balance 1130 ml -951.4 ml Exam Constitutional: alert, oriented, well developed Psych: nl mood/affect, no complaints Head: atraumatic, normocephalic Eyes: EOMI, PERRL, nl conjunctiva, nl lids, nl sclera ENMT: nl external ears & nose, nl lips & teeth, nl nasal mucosa & septum Neck: non-tender, supple Respiratory: clear to auscultation, normal air movement Cardiovascular: nl pulses, regular rate and rhythm Gastrointestinal: nl liver, spleen, non-tender, soft Musculoskeletal: nl extremities to inspection, nl gait and stance Extremities: normal pulses Neurological: HISTOPATH TECH II-XII intact, nl mental status, nl speech, nl strength Skin: nl turgor, No rash or lesions Lymph: nl lymph nodes Results Result Diagram: 07/06/16 0516 07/06/16 0516 Medications Medications Current Medications Sodium Chloride (NS) 1,000 ml @ 40 mls/hr Q24H IV Last administered on 04:53; Admin Dose 40 MLS/HR; Start 07/03/16 at 17:48 Acetaminophen (Tylenol Tab) 650 mg Q6H PRN PO PAIN LEVEL 1-3 OR FEVER; Start at 18:00 Acetaminophen/ Hydrocodone Bitart ([place] (5/325)) 1 tab Q6H PRN PO MODERATE PAIN LEVEL 4-6; Start 07/03/16 at 18:00 Zolpidem Tartrate (Ambien) 5 mg QHS PRN PO SLEEP Last administered on 23:28; Admin Dose 5 MG; Start 07/03/16 at 18:00 Pantoprazole 40 mg 40 mg DAILY@06 IV Last administered on 07/09/16 06:20; Admin Dose 40 MG; Start 07/04/16 at 06:00 Ceftriaxone Sodium (Rocephin) 50 ml @ 100 mls/hr Q24H IVPB Last administered on 07/09/16 19:46; Admin Dose 100 MLS/HR; Start 07/03/16 at 20:00 Docusate Sodium (Colace) 100 mg BID PO Last administered on 07/09/16 08:10; Admin Dose 100 MG; Start 07/03/16 at 21:00 Folic Acid (Folic Acid) 1 mg DAILY PO Last administered on 07/09/16 08:10; Admin Dose 1 MG; Start 07/04/16 at 09:00 Ondansetron HCl (Zofran Inj) 2 mg Q6H PRN IV NAUSEA AND/OR VOMITING; Start at 18:30 Senna (Senokot) 1 tab HS PRN PO CONSTIPATION; Start 07/03/16 at 21:00 Guaifenesin/ Dextromethorphan (Robitussin Dm Liquid Cup) 10 ml Q4H PRN PO COUGH Last administered on 07/06/16 20:11; Admin Dose 10 ML; Start 07/03/16 at 20:30 Lorazepam (Ativan) 2 mg Q4H PRN IV ANXIETY Last administered on 07/09/16 19:46 ; Admin Dose 2 MG; Start 07/04/16 at 13:30 Morphine Sulfate 3 mg 3 mg Q4H PRN IV Pain Last administered on 07/09/16 16:35 ; Admin Dose 3 MG; Start 07/04/16 at 19:00 Ferric Sodium Gluconate Complex/ Sodium Chloride (Ferrlecit/NS) 110 ml @ 100 mls/hr Q24H IVPB Last administered on 07/09/16t 16:05; Admin Dose 100 MLS/HR; Start 07/09/16 at 16:00; Stop 07/11/16 at 17:05 SINAN SHERIFF MD July 09, 2016 20:16
[2016-07-10] MEDS: ZOLPIDEM 5 MG TAB PO PRN ×2 (00:03→21:12)
--- NOTE | 2016-07-10 02:19 | PN ---
Date/Time of Note Date/Time of Note DATE: 07/08/16 TIME: 10:17 Assessment/Plan Lines/Catheters IV [facility] Type (from [facility]): Peripheral IV Assessment/Plan Chief Complaint/Hosp Course 1. Upper midline chronic wound versus enterocutaneous fistula -Fistulogram pending -Local care -Nutritional optimization -Vitamin C 2. Bleeding from ileostomy and wound stabilized -Monitor 3. Cirrhosis with fatty liver -Will benefit from triple phase contrast CT scan -GI consultation 4. Pancytopenia secondary to alcoholism and liver disease -Medical and hematologic optimization 5. Hypoalbuminemia, multifactorial -Nutritional optimization -Encourage alcohol cessation 6. Alcoholism -Encourage cessation however patient has tried sober living unsuccessfully due to multiple factors 7. Abnormal LFTs, hyperbilirubinemia, and elevated alkaline phosphatase secondary to above -As above 8. Hyperlipidemia -Diet and medication optimization Thank you, Late entry 07/08 Problems: Subjective 24 Hr Interval Summary Fistulogram today. No bleeding. No f/c. No n/v. No cp/sob. No cough. No guerra /dizzy/visual or neuro changes. Bowel function. CT noted. Exam/Review of Systems Vital Signs Vitals Vital Signs Date Time Temp Pulse Resp B/P Pulse Ox O2 Delivery O2 Flow Rate FiO2 07/09/16 19:59 97.9 74 20 116/71 99 Intake and Output 07/09/16 07/09/16 07/10/16 15:00 23:00 07:00 Intake Total 2490 ml Output Total 1750 ml Balance 740 ml Exam Free Text/Dictation Constitutional: alert, oriented, No distress Psych: other (Flat affect), No anxiety, No confusion, No nl mood/affect Head: atraumatic, normocephalic Eyes: EOMI, PERRL, nl conjunctiva, No icteric ENMT: mucosa pink and moist, nl external ears & nose, nl lips & teeth Neck: non-tender, supple Respiratory: normal air movement, No congested cough, No diminished breath sounds, No labored breathing Cardiovascular: regular rate and rhythm, No edema Gastrointestinal: other (Right lower quadrant ileostomy. Umbilical hernia. Upper midline open wound with minimal drainage (questionable enterocutaneous fistula versus chronic wound)), soft, No distended, No rebound or guarding Genitourinary - Male: nl penis, nl scrotum Musculoskeletal: nl extremities to inspection, nl gait and stance, No joint tenderness Extremities: normal pulses, No calf tenderness Neurological: nl mental status, nl speech, nl strength Skin: nl turgor, No diaphoresis, No rash or lesions Lymph: nl lymph nodes Results Result Diagram: 07/06/16 0516 07/06/16 0516 JOON SHORT MD Jul 10, 2016 02:19
--- NOTE | 2016-07-10 02:23 | PN ---
Date/Time of Note Date/Time of Note DATE: 07/09/16 TIME: 22:19 Assessment/Plan Lines/Catheters IV C[facility]ter Type (from [facility]): Peripheral IV Assessment/Plan Chief Complaint/Hosp Course 1. 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 Bleeding from ileostomy and colocutaneous stabilized -Monitor 3. Cirrhosis with fatty liver -Will benefit from triple phase contrast CT scan -GI consultation 4. Pancytopenia secondary to alcoholism and liver disease -Medical and hematologic optimization 5. Hypoalbuminemia, multifactorial -Nutritional optimization -Encourage alcohol cessation 6. Alcoholism -Encourage cessation however patient has tried sober living unsuccessfully due to multiple factors 7. Abnormal LFTs, hyperbilirubinemia, and elevated alkaline phosphatase secondary to above -As above 8. Hyperlipidemia -Diet and medication optimization Thank you, Late entry 07/09 Problems: Subjective 24 Hr Interval Summary Fistulogram identifies colocutaneous fistula. No bleeding. No f/c. No n/v. No cp/sob. No cough. No guerra/dizzy/visual or neuro changes. Bowel function thru ileostomy. Exam/Review of Systems Vital Signs Vitals Vital Signs Date Time Temp Pulse Resp B/P Pulse Ox O2 Delivery O2 Flow Rate FiO2 07/09/16 19:59 97.9 74 20 116/71 99 Intake and Output 07/09/16 07/09/16 07/10/16 15:00 23:00 07:00 Intake Total 2490 ml Output Total 1750 ml Balance 740 ml Exam Free Text/Dictation Constitutional: alert, oriented, No distress Psych: other (Flat affect), No anxiety, No confusion, No nl mood/affect Head: atraumatic, normocephalic Eyes: EOMI, PERRL, nl conjunctiva, No icteric ENMT: mucosa pink and moist, nl external ears & nose, nl lips & teeth Neck: non-tender, supple Respiratory: normal air movement, No congested cough, No diminished breath sounds, No labored breathing Cardiovascular: regular rate and rhythm, No edema Gastrointestinal: other (Right lower quadrant ileostomy. Umbilical hernia. Upper midline open wound with minimal drainage (questionable enterocutaneous fistula versus chronic wound)), soft, No distended, No rebound or guarding Genitourinary - Male: nl penis, nl scrotum Musculoskeletal: nl extremities to inspection, nl gait and stance, No joint tenderness Extremities: normal pulses, No calf tenderness Neurological: nl mental status, nl speech, nl strength Skin: nl turgor, No diaphoresis, No rash or lesions Lymph: nl lymph nodes Results Result Diagram: 07/06/16 0516 07/06/16 0516 JOON SHORT MD Jul 10, 2016 02:23
[2016-07-10] MEDS: morphine 4 MG/ML VIAL IV PRN ×3 (05:13→21:12)
[2016-07-10] MEDS: SOD CHLORIDE 0.9% 1,000 ML IV SCH ×2 (05:13→17:48)
[2016-07-10] MEDS: PANTOPRAZOLE 40 MG INJ IV SCH (05:13)
[2016-07-10 05:37] LABS: ADD SCAN DIFF NO
[2016-07-10 05:49] LABS: ABNORMAL IP MESSAGE 1; BASOPHIL # 0.1 10^3/ul (0.0-0.1); BASOPHILS % 2.1 % (0.0-2.0); EOSINOPHILS # 0.1 10^3/ul (0.0-0.5); EOSINOPHILS % 1.6 % (0.0-7.0); HEMATOCRIT 29.7 % (42.0-52.0); HEMOGLOBIN 9.7 g/dl (14.0-18.0); LYMPHOCYTES # 0.9 10^3/ul (0.8-2.9); LYMPHOCYTES % 23.8 % (15.0-51.0); MEAN CORPUSCULAR HEMOGLOBIN 30.4 pg (29.0-33.0); MEAN CORPUSCULAR HGB CONC 32.7 g/dl (32.0-37.0); MEAN CORPUSCULAR VOLUME 93.1 fl (82.0-101.0); MEAN PLATELET VOLUME 12.2 fl (7.4-10.4); MONOCYTE # 0.5 10^3/ul (0.3-0.9); MONOCYTES % 14.1 % (0.0-11.0); NEUTROPHIL # 2.2 10^3/ul (1.6-7.5); NEUTROPHILS % 58.1 % (39.0-77.0); PLATELET COUNT 179 10^3/UL (140-415); RED BLOOD COUNT 3.19 10^6/ul (4.70-6.10); RED CELL DISTRIBUTION WIDTH 23.2 % (11.5-14.5); WHITE BLOOD COUNT 3.8 10^3/ul (4.8-10.8)
[2016-07-10 06:05] LABS: ALBUMIN/GLOBULIN RATIO 1.17; BILIRUBIN,INDIRECT 0.8 mg/dl (0-1.1); BILIRUBIN,TOTAL 0.8 mg/dl (0.2-1.3); CALCIUM 9.1 mg/dl (8.4-10.2); CREATININE 0.54 mg/dl (0.61-1.24); POTASSIUM 3.9 mmol/L (3.5-5.1); TOTAL PROTEIN 7.4 g/dl (6.1-8.1)
[2016-07-10 07:37] VITALS: BP 115/59; RESP 18
--- NOTE | 2016-07-10 08:14 | CONS ---
Date/Time of Note Date/Time of Note DATE: 07/10/16 TIME: 08:10 Assessment/Plan Assessment/Plan Chief Complaint/Hosp Course 56 yo male with Hep C and EtOH cirrhosis who presents with a chronic abdominal wound #Thrombocytopenia - platelets now normal. this is likely secondary to patient's underlying cirrhosis as well as bleeding. platelets continue to improving -TTP unlikely as LDH is normal. f/u DIC panel -given pt is not actively bleeding would not transfuse platelets at this time # Anemia - this is also likely secondary to underlying cirrhosis as well as GI blood loss from duodenal ulcers -will check anemia panel including iron studies, vit b12/ folate and hemolysis labs -if bleeding recurs GI to scope -pt is s/p 3 days of IV iron. will order 3 more days #Innumerable liver lesions -triple phase dedicated liver CT did not show evidence of HCC. furthermore AFP is 4. I am therefore not concerned for underlying malignancy at this time -AFP wnl #Enterocutaneous fistula -surgery to attempt closure with endoscopy at that time Given that patient's Hg is now stable and there is no evidence of bleed, will sign off for now. Please call with any further questions. Dr. Lore Ann will be covering for me until July 14 Problems: Consultation Date/Type/Reason Admit Date/Time July 03, 2016 at 16:40 Initial Consult Date 07/04/16 Type of Consultation: Hematology Reason for Consultation thrombocytopenia and bleeding from enterocutaneous fistula Referring Provider: LANCE RIVAS MD 24 HR Interval Summary Free Text/Dictation bleeding has resolved Exam/Review of Systems Vital Signs Vitals Vital Signs Date Time Temp Pulse Resp B/P Pulse Ox O2 Delivery O2 Flow Rate FiO2 07/10/16 07:37 99.1 83 18 115/59 96 Intake and Output 07/09/16 07/09/16 07/10/16 15:00 23:00 07:00 Intake Total 2540 ml 1020 ml Output Total 1750 ml 2000 ml Balance 790 ml -980 ml Exam Constitutional: alert, oriented Psych: no complaints Head: normocephalic Eyes: nl conjunctiva ENMT: nl external ears & nose Neck: non-tender, supple Respiratory: clear to auscultation Cardiovascular: regular rate and rhythm Gastrointestinal: other (ileostomy in place. enterocutaneous fistula with ostomy bag in place), soft Musculoskeletal: nl extremities to inspection Results Result Diagram: 07/10/16 0458 07/10/16 0458 Results 24 hrs Laboratory Tests Test 07/10/16 04:58 White Blood Count 3.8 #L Red Blood Count 3.19 L Hemoglobin 9.7 L Hematocrit 29.7 L Mean Corpuscular Volume 93.1 Mean Corpuscular Hemoglobin 30.4 Mean Corpuscular Hemoglobin Concent 32.7 Red Cell Distribution Width 23.2 H Platelet Count 179 # Mean Platelet Volume 12.2 H Neutrophils % 58.1 Lymphocytes % 23.8 Monocytes % 14.1 H Eosinophils % 1.6 Basophils % 2.1 H Nucleated Red Blood Cells % 0.0 Neutrophils # 2.2 Lymphocytes # 0.9 Monocytes # 0.5 Eosinophils # 0.1 Basophils # 0.1 Nucleated Red Blood Cells # 0.0 Sodium Level 139 Potassium Level 3.9 Chloride Level 114 H Carbon Dioxide Level 21 Anion Gap 8 Blood Urea Nitrogen 14 Creatinine 0.54 L Glucose Level 92 Calcium Level 9.1 Total Bilirubin 0.8 Direct Bilirubin 0.00 Indirect Bilirubin 0.8 Aspartate Amino Transf (AST/SGOT) 189 H Alanine Aminotransferase (ALT/SGPT) 111 H Alkaline Phosphatase 212 H Total Protein 7.4 Albumin 4.0 Globulin 3.40 H Albumin/Globulin Ratio 1.17 Medications Medications Current Medications Sodium Chloride (NS) 1,000 ml @ 40 mls/hr Q24H IV Last administered on 05:13; Admin Dose 40 MLS/HR; Start 07/03/16 at 17:48 Acetaminophen (Tylenol Tab) 650 mg Q6H PRN PO PAIN LEVEL 1-3 OR FEVER; Start at 18:00 Acetaminophen/ Hydrocodone Bitart ([place] (5/325)) 1 tab Q6H PRN PO MODERATE PAIN LEVEL 4-6; Start 07/03/16 at 18:00 Zolpidem Tartrate (Ambien) 5 mg QHS PRN PO SLEEP Last administered on 07/10/16 00:03; Admin Dose 5 MG; Start 07/03/16 at 18:00 Pantoprazole 40 mg 40 mg DAILY@06 IV Last administered on 07/10/16 05:13; Admin Dose 40 MG; Start 07/04/16 at 06:00 Ceftriaxone Sodium (Rocephin) 50 ml @ 100 mls/hr Q24H IVPB Last administered on 07/09/16 19:46; Admin Dose 100 MLS/HR; Start 07/03/16 at 20:00 Docusate Sodium (Colace) 100 mg BID PO Last administered on 07/09/16 20:14; Admin Dose 100 MG; Start 07/03/16 at 21:00 Folic Acid (Folic Acid) 1 mg DAILY PO Last administered on 07/09/16 08:10; Admin Dose 1 MG; Start 07/04/16 at 09:00 Ondansetron HCl (Zofran Inj) 2 mg Q6H PRN IV NAUSEA AND/OR VOMITING; Start at 18:30 Senna (Senokot) 1 tab HS PRN PO CONSTIPATION; Start 07/03/16 at 21:00 Guaifenesin/ Dextromethorphan (Robitussin Dm Liquid Cup) 10 ml Q4H PRN PO COUGH Last administered on 07/06/16 20:11; Admin Dose 10 ML; Start 07/03/16 at 20:30 Lorazepam (Ativan) 2 mg Q4H PRN IV ANXIETY Last administered on 07/09/16 19:46 ; Admin Dose 2 MG; Start 07/04/16 at 13:30 Morphine Sulfate 3 mg 3 mg Q4H PRN IV Pain Last administered on 07/10/16 05:13 ; Admin Dose 3 MG; Start 07/04/16 at 19:00 Ferric Sodium Gluconate Complex/ Sodium Chloride (Ferrlecit/NS) 110 ml @ 100 mls/hr Q24H IVPB Last administered on 07/09/16 16:05; Admin Dose 100 MLS/HR; Start 07/09/16 at 16:00; Stop 07/11/16 at 17:05 REJI SCHMID M.D. Jul 10, 2016 08:14
[2016-07-10] MEDS: DOCUSATE SODIUM 100 MG CAP PO SCH ×2 (09:03→21:12)
[2016-07-10] MEDS: FOLIC ACID 1 MG TAB PO SCH (09:03)
[2016-07-10] MEDS: LORAZEPAM 2 MG INJ IV PRN ×3 (09:04→23:49)
[2016-07-10 10:05] VITALS: BP 98/66; RESP 18
[2016-07-10] MEDS: GUAIFENESIN/DM 5ML CUP PO PRN (13:50)
[2016-07-10] MEDS: SOD FERRIC GLUC COMPLX 125 MG in SOD CHLORIDE 0.9% 100 ML IVPB SCH (18:32)
--- NOTE | 2016-07-10 19:18 | PN ---
Date/Time of Note Date/Time of Note DATE: 07/10/16 TIME: 19:17 Assessment/Plan VTE Prophylaxis VTE Prophylaxis Intervention: other Lines/Catheters IV Catheter Type (from Nrs): Peripheral IV Assessment/Plan Chief Complaint/Hosp Course S/P GI BLEED ANEMIA CH ABD WOUND colocutan fistula pancytopenia ETOH ABUSE PLAN PER GI and surgery dc planning Problems: Subjective 24 Hr Interval Summary Respiratory: no complaints Cardiovascular: no complaints Gastrointestinal: no complaints Exam/Review of Systems Vital Signs Vitals Vital Signs Date Time Temp Pulse Resp B/P Pulse Ox O2 Delivery O2 Flow Rate FiO2 07/10/16 10:05 97.7 76 18 98/66 97 Intake and Output 07/09/16 07/09/16 07/10/16 15:00 23:00 07:00 Intake Total 2540 ml 1020 ml Output Total 1750 ml 2000 ml Balance 790 ml -980 ml Exam Neck: supple Respiratory: clear to auscultation Cardiovascular: regular rate and rhythm Gastrointestinal: soft Musculoskeletal: nl extremities to inspection Extremities: normal pulses Neurological: SHOP LEAD II-XII intact Results Result Diagram: 07/10/16 0458 07/10/16 0458 Results 24 hrs Laboratory Tests Test 07/10/16 04:58 White Blood Count 3.8 #L Red Blood Count 3.19 L Hemoglobin 9.7 L Hematocrit 29.7 L Mean Corpuscular Volume 93.1 Mean Corpuscular Hemoglobin 30.4 Mean Corpuscular Hemoglobin Concent 32.7 Red Cell Distribution Width 23.2 H Platelet Count 179 # Mean Platelet Volume 12.2 H Neutrophils % 58.1 Lymphocytes % 23.8 Monocytes % 14.1 H Eosinophils % 1.6 Basophils % 2.1 H Nucleated Red Blood Cells % 0.0 Neutrophils # 2.2 Lymphocytes # 0.9 Monocytes # 0.5 Eosinophils # 0.1 Basophils # 0.1 Nucleated Red Blood Cells # 0.0 Sodium Level 139 Potassium Level 3.9 Chloride Level 114 H Carbon Dioxide Level 21 Anion Gap 8 Blood Urea Nitrogen 14 Creatinine 0.54 L Glucose Level 92 Calcium Level 9.1 Total Bilirubin 0.8 Direct Bilirubin 0.00 Indirect Bilirubin 0.8 Aspartate Amino Transf (AST/SGOT) 189 H Alanine Aminotransferase (ALT/SGPT) 111 H Alkaline Phosphatase 212 H Total Protein 7.4 Albumin 4.0 Globulin 3.40 H Albumin/Globulin Ratio 1.17 Medications Medications Current Medications Sodium Chloride (NS) 1,000 ml @ 40 mls/hr Q24H IV Last administered on 05:13; Admin Dose 40 MLS/HR; Start 07/03/16 at 17:48 Acetaminophen (Tylenol Tab) 650 mg Q6H PRN PO PAIN LEVEL 1-3 OR FEVER; Start at 18:00 Acetaminophen/ Hydrocodone Bitart ([place] (5/325)) 1 tab Q6H PRN PO MODERATE PAIN LEVEL 4-6; Start 07/03/16 at 18:00 Zolpidem Tartrate (Ambien) 5 mg QHS PRN PO SLEEP Last administered on 07/10/16 00:03; Admin Dose 5 MG; Start 07/03/16 at 18:00 Pantoprazole 40 mg 40 mg DAILY@06 IV Last administered on 07/10/16 05:13; Admin Dose 40 MG; Start 07/04/16 at 06:00 Ceftriaxone Sodium (Rocephin) 50 ml @ 100 mls/hr Q24H IVPB Last administered on 07/09/16 19:46; Admin Dose 100 MLS/HR; Start 07/03/16 at 20:00 Docusate Sodium (Colace) 100 mg BID PO Last administered on 07/10/16 09:03; Admin Dose 100 MG; Start 07/03/16 at 21:00 Folic Acid (Folic Acid) 1 mg DAILY PO Last administered on 07/10/16 09:03; Admin Dose 1 MG; Start 07/04/16 at 09:00 Ondansetron HCl (Zofran Inj) 2 mg Q6H PRN IV NAUSEA AND/OR VOMITING; Start at 18:30 Senna (Senokot) 1 tab HS PRN PO CONSTIPATION; Start 07/03/16 at 21:00 Guaifenesin/ Dextromethorphan (Robitussin Dm Liquid Cup) 10 ml Q4H PRN PO COUGH Last administered on 07/10/16 13:50; Admin Dose 10 ML; Start 07/03/16 at 20:30 Lorazepam (Ativan) 2 mg Q4H PRN IV ANXIETY Last administered on 07/10/16 18:32 ; Admin Dose 2 MG; Start 07/04/16 at 13:30 Morphine Sulfate 3 mg 3 mg Q4H PRN IV Pain Last administered on 07/10/16 13:50 ; Admin Dose 3 MG; Start 07/04/16 at 19:00 Ferric Sodium Gluconate Complex/ Sodium Chloride (Ferrlecit/NS) 110 ml @ 100 mls/hr Q24H IVPB Last administered on 07/10/16 18:32; Admin Dose 100 MLS/HR; Start 07/09/16 at 16:00; Stop 07/11/16 at 17:05 LANCE RIVAS MD Jul 10, 2016 19:18
[2016-07-10 20:09] VITALS: BP 92/55; RESP 18
[2016-07-10] MEDS: CEFTRIAXONE 1 GM/50 ML (PMX) 50 ML IVPB SCH (20:22)
--- NOTE | 2016-07-10 20:43 | CONS ---
Date/Time of Note Date/Time of Note DATE: 07/10/16 TIME: 20:41 Assessment/Plan Assessment/Plan Additional Assessment/Plan Additional Assessment/Plan IMPRESSION: 1. Anemia which is multifactorial, but the patient had GI bleeding from two duodenal ulcers 2. Also had bleeding from the capillary of the stomach which spontaneously stopped. 3. Cirrhosis of liver. 4. Pancytopenia secondary to alcoholism and liver disease. 5. History of ethanol abuse. 6. Colocutaneous fistula Plan Continue PPI I will review fistulogram with the radiologist to look at the site of fistula in the colon. We will make an attempt to close the fistula endoscopically PLAN: Continue PPI and monitor H and H. Consultation Date/Type/Reason Admit Date/Time July 03, 2016 at 16:40 Initial Consult Date 07/04/16 Type of Consultation: Hematology Referring Provider: LANCE RIVAS MD 24 HR Interval Summary Constitutional: improved Exam/Review of Systems Vital Signs Vitals Vital Signs Date Time Temp Pulse Resp B/P Pulse Ox O2 Delivery O2 Flow Rate FiO2 07/10/16 20:09 98.4 18 92/55 97 07/10/16 10:05 76 Intake and Output 07/09/16 07/09/16 07/10/16 15:00 23:00 07:00 Intake Total 2540 ml 1020 ml Output Total 1750 ml 2000 ml Balance 790 ml -980 ml Exam Constitutional: alert, oriented, well developed Psych: nl mood/affect, no complaints Head: atraumatic, normocephalic Eyes: EOMI, PERRL, nl conjunctiva, nl lids, nl sclera ENMT: nl external ears & nose, nl lips & teeth, nl nasal mucosa & septum Neck: non-tender, supple Respiratory: clear to auscultation, normal air movement Cardiovascular: nl pulses, regular rate and rhythm Gastrointestinal: nl liver, spleen, non-tender, soft Musculoskeletal: nl extremities to inspection, nl gait and stance Extremities: normal pulses Neurological: PARK KEEPER II-XII intact, nl mental status, nl speech, nl strength Skin: nl turgor, No rash or lesions Lymph: nl lymph nodes Results Result Diagram: 07/10/16 0458 07/10/16 0458 Results 24 hrs Laboratory Tests Test 07/10/16 04:58 White Blood Count 3.8 #L Red Blood Count 3.19 L Hemoglobin 9.7 L Hematocrit 29.7 L Mean Corpuscular Volume 93.1 Mean Corpuscular Hemoglobin 30.4 Mean Corpuscular Hemoglobin Concent 32.7 Red Cell Distribution Width 23.2 H Platelet Count 179 # Mean Platelet Volume 12.2 H Neutrophils % 58.1 Lymphocytes % 23.8 Monocytes % 14.1 H Eosinophils % 1.6 Basophils % 2.1 H Nucleated Red Blood Cells % 0.0 Neutrophils # 2.2 Lymphocytes # 0.9 Monocytes # 0.5 Eosinophils # 0.1 Basophils # 0.1 Nucleated Red Blood Cells # 0.0 Sodium Level 139 Potassium Level 3.9 Chloride Level 114 H Carbon Dioxide Level 21 Anion Gap 8 Blood Urea Nitrogen 14 Creatinine 0.54 L Glucose Level 92 Calcium Level 9.1 Total Bilirubin 0.8 Direct Bilirubin 0.00 Indirect Bilirubin 0.8 Aspartate Amino Transf (AST/SGOT) 189 H Alanine Aminotransferase (ALT/SGPT) 111 H Alkaline Phosphatase 212 H Total Protein 7.4 Albumin 4.0 Globulin 3.40 H Albumin/Globulin Ratio 1.17 Medications Medications Current Medications Sodium Chloride (NS) 1,000 ml @ 40 mls/hr Q24H IV Last administered on 05:13; Admin Dose 40 MLS/HR; Start 07/03/16 at 17:48 Acetaminophen (Tylenol Tab) 650 mg Q6H PRN PO PAIN LEVEL 1-3 OR FEVER; Start at 18:00 Acetaminophen/ Hydrocodone Bitart ([place] (5/325)) 1 tab Q6H PRN PO MODERATE PAIN LEVEL 4-6; Start 07/03/16 at 18:00 Zolpidem Tartrate (Ambien) 5 mg QHS PRN PO SLEEP Last administered on 07/10/16 00:03; Admin Dose 5 MG; Start 07/03/16 at 18:00 Pantoprazole 40 mg 40 mg DAILY@06 IV Last administered on 07/10/16 05:13; Admin Dose 40 MG; Start 07/04/16 at 06:00 Ceftriaxone Sodium (Rocephin) 50 ml @ 100 mls/hr Q24H IVPB Last administered on 07/10/16 20:22; Admin Dose 100 MLS/HR; Start 07/03/16 at 20:00 Docusate Sodium (Colace) 100 mg BID PO Last administered on 07/10/16 09:03; Admin Dose 100 MG; Start 07/03/16 at 21:00 Folic Acid (Folic Acid) 1 mg DAILY PO Last administered on 07/10/16 09:03; Admin Dose 1 MG; Start 07/04/16 at 09:00 Ondansetron HCl (Zofran Inj) 2 mg Q6H PRN IV NAUSEA AND/OR VOMITING; Start at 18:30 Senna (Senokot) 1 tab HS PRN PO CONSTIPATION; Start 07/03/16 at 21:00 Guaifenesin/ Dextromethorphan (Robitussin Dm Liquid Cup) 10 ml Q4H PRN PO COUGH Last administered on 07/10/16 13:50; Admin Dose 10 ML; Start 07/03/16 at 20:30 Lorazepam (Ativan) 2 mg Q4H PRN IV ANXIETY Last administered on 07/10/16 18:32 ; Admin Dose 2 MG; Start 07/04/16 at 13:30 Morphine Sulfate 3 mg 3 mg Q4H PRN IV Pain Last administered on 07/10/16 13:50 ; Admin Dose 3 MG; Start 07/04/16 at 19:00 Ferric Sodium Gluconate Complex/ Sodium Chloride (Ferrlecit/NS) 110 ml @ 100 mls/hr Q24H IVPB Last administered on 07/10/16 18:32; Admin Dose 100 MLS/HR; Start 07/09/16 at 16:00; Stop 07/11/16 at 17:05 SINAN SHERIFF MD Jul 10, 2016 20:43
[2016-07-11] MEDS: PANTOPRAZOLE 40 MG INJ IV SCH (05:56)
[2016-07-11] MEDS: morphine 4 MG/ML VIAL IV PRN ×3 (06:40→17:36)
[2016-07-11 07:42] VITALS: BP 105/62; RESP 16
[2016-07-11] MEDS: DOCUSATE SODIUM 100 MG CAP PO SCH ×2 (08:11→21:04)
[2016-07-11] MEDS: FOLIC ACID 1 MG TAB PO SCH (08:11)
[2016-07-11] MEDS: SOD CHLORIDE 0.9% 1,000 ML IV SCH (08:15)
[2016-07-11 09:36] LABS: ADD SCAN DIFF NO
[2016-07-11 09:42] LABS: ABNORMAL IP MESSAGE 1; BASOPHIL # 0.1 10^3/ul (0.0-0.1); BASOPHILS % 1.9 % (0.0-2.0); EOSINOPHILS # 0.1 10^3/ul (0.0-0.5); EOSINOPHILS % 1.7 % (0.0-7.0); HEMATOCRIT 31.1 % (42.0-52.0); LYMPHOCYTES # 0.9 10^3/ul (0.8-2.9); LYMPHOCYTES % 20.3 % (15.0-51.0); MEAN CORPUSCULAR HEMOGLOBIN 30.4 pg (29.0-33.0); MEAN CORPUSCULAR HGB CONC 32.2 g/dl (32.0-37.0); MEAN CORPUSCULAR VOLUME 94.5 fl (82.0-101.0); MEAN PLATELET VOLUME 12.2 fl (7.4-10.4); MONOCYTE # 0.5 10^3/ul (0.3-0.9); NEUTROPHIL # 2.7 10^3/ul (1.6-7.5); NEUTROPHILS % 64.9 % (39.0-77.0); PLATELET COUNT 204 10^3/UL (140-415); RED BLOOD COUNT 3.29 10^6/ul (4.70-6.10); RED CELL DISTRIBUTION WIDTH 23.2 % (11.5-14.5); WHITE BLOOD COUNT 4.2 10^3/ul (4.8-10.8)
--- NOTE | 2016-07-11 14:43 | PN ---
Date/Time of Note Date/Time of Note DATE: 07/11/16 TIME: 14:42 Assessment/Plan VTE Prophylaxis VTE Prophylaxis Intervention: ambulation Lines/Catheters IV Catheter Type (from Nrsg): Peripheral IV Assessment/Plan Chief Complaint/Hosp Course 1.GI bleed from ileostomy and unhealed incision wound 2. Anemia 3. ETOH abuse 4. Liver cirrhosis with low platelet 5. Hs of colectomy with ileostomy formation 2 years ago 6. hepatitis C 7. Unhealed abdominal incision after exploratory laparotomy 2 years ago 8. Nicotine dependency 9. Homelessness. Problems: Assessment/Plan 1. Placement issue 2. Continue pain meds Subjective 24 Hr Interval Summary Constitutional: improved, no complaints, other (pain meds issue) Exam/Review of Systems Vital Signs Vitals Vital Signs Date Time Temp Pulse Resp B/P Pulse Ox O2 Delivery O2 Flow Rate FiO2 07/11/16 07:42 97.7 69 16 105/62 97 Intake and Output 07/10/16 07/10/16 07/11/16 15:00 23:00 07:00 Intake Total 1600 ml 510 ml Output Total 1300 ml 1700 ml Balance 300 ml -1190 ml Exam Constitutional: alert, oriented Head: normocephalic Eyes: nl conjunctiva Respiratory: clear to auscultation Cardiovascular: regular rate and rhythm Results Result Diagram: 07/11/16 0905 07/10/16 0458 Results 24 hrs Laboratory Tests Test 07/11/16 09:05 White Blood Count 4.2 L Red Blood Count 3.29 L Hemoglobin 10.0 L Hematocrit 31.1 L Mean Corpuscular Volume 94.5 Mean Corpuscular Hemoglobin 30.4 Mean Corpuscular Hemoglobin Concent 32.2 Red Cell Distribution Width 23.2 H Platelet Count 204 Mean Platelet Volume 12.2 H Neutrophils % 64.9 Lymphocytes % 20.3 Monocytes % 11.0 Eosinophils % 1.7 Basophils % 1.9 Nucleated Red Blood Cells % 0.0 Neutrophils # 2.7 Lymphocytes # 0.9 Monocytes # 0.5 Eosinophils # 0.1 Basophils # 0.1 Nucleated Red Blood Cells # 0.0 Medications Medications Current Medications Sodium Chloride (NS) 1,000 ml @ 40 mls/hr Q24H IV Last administered on t 08:15; Admin Dose 40 MLS/HR; Start 07/03/16 at 17:48 Acetaminophen (Tylenol Tab) 650 mg Q6H PRN PO PAIN LEVEL 1-3 OR FEVER; Start at 18:00 Acetaminophen/ Hydrocodone Bitart ([place] (5/325)) 1 tab Q6H PRN PO MODERATE PAIN LEVEL 4-6; Start 07/03/16 at 18:00 Zolpidem Tartrate (Ambien) 5 mg QHS PRN PO SLEEP Last administered on 07/10/16 21:12; Admin Dose 5 MG; Start 07/03/16 at 18:00 Pantoprazole 40 mg 40 mg DAILY@06 IV Last administered on 07/11/16 05:56; Admin Dose 40 MG; Start 07/04/16 at 06:00 Ceftriaxone Sodium (Rocephin) 50 ml @ 100 mls/hr Q24H IVPB Last administered on 07/10/16 20:22; Admin Dose 100 MLS/HR; Start 07/03/16 at 20:00 Docusate Sodium (Colace) 100 mg BID PO Last administered on 07/11/16 08:11; Admin Dose 100 MG; Start 07/03/16 at 21:00 Folic Acid (Folic Acid) 1 mg DAILY PO Last administered on 07/11/16 08:11; Admin Dose 1 MG; Start 07/04/16 at 09:00 Ondansetron HCl (Zofran Inj) 2 mg Q6H PRN IV NAUSEA AND/OR VOMITING; Start at 18:30 Senna (Senokot) 1 tab HS PRN PO CONSTIPATION; Start 07/03/16 at 21:00 Guaifenesin/ Dextromethorphan (Robitussin Dm Liquid Cup) 10 ml Q4H PRN PO COUGH Last administered on 07/10/16 13:50; Admin Dose 10 ML; Start 07/03/16 at 20:30 Morphine Sulfate 3 mg 3 mg Q4H PRN IV Pain Last administered on 07/11/16 12:41 ; Admin Dose 3 MG; Start 07/04/16 at 19:00 Ferric Sodium Gluconate Complex/ Sodium Chloride (Ferrlecit/NS) 110 ml @ 100 mls/hr Q24H IVPB Last administered on 07/10/16 18:32; Admin Dose 100 MLS/HR; Start 07/09/16 at 16:00; Stop 07/11/16 at 17:05 Lorazepam (Ativan) 2 mg Q4H PRN PO ANXIETY; Start 07/11/16 at 11:30 ESTRELLITA BENITEZ Jul 11, 2016 14:43
[2016-07-11] MEDS ORDERED: morphine 10 MG INJ IM PRN (15:00)
--- NOTE | 2016-07-11 17:10 | CONS ---
Date/Time of Note Date/Time of Note DATE: 07/11/16 TIME: 17:09 Assessment/Plan Assessment/Plan Additional Assessment/Plan Additional Assessment/Plan Additional Assessment/Plan IMPRESSION: 1. Anemia which is multifactorial, but the patient had GI bleeding from two duodenal ulcers 2. Also had bleeding from the capillary of the stomach which spontaneously stopped. 3. Cirrhosis of liver. 4. Pancytopenia secondary to alcoholism and liver disease. 5. History of ethanol abuse. 6. Colocutaneous fistula Plan Continue PPI I will review fistulogram with the radiologist to look at the site of fistula in the colon. 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 This should not be closed. We will verified with the surgical report from [facility]. Consultation Date/Type/Reason Admit Date/Time July 03, 2016 at 16:40 Initial Consult Date 07/04/16 Type of Consultation: Hematology Referring Provider: LANCE RIVAS MD 24 HR Interval Summary Constitutional: improved Exam/Review of Systems Vital Signs Vitals Vital Signs Date Time Temp Pulse Resp B/P Pulse Ox O2 Delivery O2 Flow Rate FiO2 07/11/16 07:42 97.7 69 16 105/62 97 Intake and Output 07/10/16 07/10/16 07/11/16 14:59 22:59 06:59 Intake Total 1600 ml 510 ml Output Total 1300 ml 1700 ml Balance 300 ml -1190 ml Exam Constitutional: alert, oriented, well developed Psych: nl mood/affect, no complaints Head: atraumatic, normocephalic Eyes: EOMI, PERRL, nl conjunctiva, nl lids, nl sclera ENMT: nl external ears & nose, nl lips & teeth, nl nasal mucosa & septum Neck: non-tender, supple Respiratory: clear to auscultation, normal air movement Cardiovascular: nl pulses, regular rate and rhythm Gastrointestinal: nl liver, spleen, non-tender, soft Musculoskeletal: nl extremities to inspection, nl gait and stance Extremities: normal pulses Neurological: MARKETING TRAINEE II-XII intact, nl mental status, nl speech, nl strength Skin: nl turgor, No rash or lesions Lymph: nl lymph nodes Results Result Diagram: 07/11/16 0905 07/10/16 0458 Results 24 hrs Laboratory Tests Test 07/11/16 09:05 White Blood Count 4.2 L Red Blood Count 3.29 L Hemoglobin 10.0 L Hematocrit 31.1 L Mean Corpuscular Volume 94.5 Mean Corpuscular Hemoglobin 30.4 Mean Corpuscular Hemoglobin Concent 32.2 Red Cell Distribution Width 23.2 H Platelet Count 204 Mean Platelet Volume 12.2 H Neutrophils % 64.9 Lymphocytes % 20.3 Monocytes % 11.0 Eosinophils % 1.7 Basophils % 1.9 Nucleated Red Blood Cells % 0.0 Neutrophils # 2.7 Lymphocytes # 0.9 Monocytes # 0.5 Eosinophils # 0.1 Basophils # 0.1 Nucleated Red Blood Cells # 0.0 Medications Medications Current Medications Sodium Chloride (NS) 1,000 ml @ 40 mls/hr Q24H IV Last administered on 08:15; Admin Dose 40 MLS/HR; Start 07/03/16 at 17:48 Acetaminophen (Tylenol Tab) 650 mg Q6H PRN PO PAIN LEVEL 1-3 OR FEVER; Start at 18:00 Acetaminophen/ Hydrocodone Bitart ([place] (5/325)) 1 tab Q6H PRN PO MODERATE PAIN LEVEL 4-6; Start 07/03/16 at 18:00 Zolpidem Tartrate (Ambien) 5 mg QHS PRN PO SLEEP Last administered on 07/10/16 21:12; Admin Dose 5 MG; Start 07/03/16 at 18:00 Pantoprazole 40 mg 40 mg DAILY@06 IV Last administered on 07/11/16 05:56; Admin Dose 40 MG; Start 07/04/16 at 06:00 Ceftriaxone Sodium (Rocephin) 50 ml @ 100 mls/hr Q24H IVPB Last administered on 07/10/16 20:22; Admin Dose 100 MLS/HR; Start 07/03/16 at 20:00 Docusate Sodium (Colace) 100 mg BID PO Last administered on 07/11/16 08:11; Admin Dose 100 MG; Start 07/03/16 at 21:00 Folic Acid (Folic Acid) 1 mg DAILY PO Last administered on 07/11/16 08:11; Admin Dose 1 MG; Start 07/04/16 at 09:00 Ondansetron HCl (Zofran Inj) 2 mg Q6H PRN IV NAUSEA AND/OR VOMITING; Start at 18:30 Senna (Senokot) 1 tab HS PRN PO CONSTIPATION; Start 07/03/16 at 21:00 Guaifenesin/ Dextromethorphan (Robitussin Dm Liquid Cup) 10 ml Q4H PRN PO COUGH Last administered on 07/10/16 13:50; Admin Dose 10 ML; Start 07/03/16 at 20:30 Morphine Sulfate (morphine) 3 mg Q4H PRN IV Pain Last administered on 07/11/16 12:41; Admin Dose 3 MG; Start 07/04/16 at 19:00 Lorazepam (Ativan) 2 mg Q4H PRN PO ANXIETY; Start 07/11/16 at 11:30 Morphine Sulfate (morphine) 4 mg Q4H PRN IM pain; Start 07/11/16 at 15:00 SINAN SHERIFF MD Jul 11, 2016 17:10
[2016-07-11] MEDS: SOD FERRIC GLUC COMPLX 125 MG in SOD CHLORIDE 0.9% 100 ML IVPB SCH (17:35)
[2016-07-11 19:44] VITALS: BP 97/57; RESP 18
--- NOTE | 2016-07-11 19:47 | PN ---
Date/Time of Note Date/Time of Note DATE: 07/10/16 TIME: 19:45 Assessment/Plan Lines/Catheters IV Catheter Type (from [facility]): Peripheral IV Assessment/Plan Chief Complaint/Hosp Course 1. Colocutaneous fistula (possible mucous fistula placed at time of his original surgery) -Agree with GI attempting endoscopic attempt at closure if his operative report does not confirm it to a mucous fistula -Abx -Local care -Nutritional optimization -Vitamin C 2. Bleeding from ileostomy and colocutaneous stabilized -Monitor 3. Cirrhosis with fatty liver -Will benefit from triple phase contrast CT scan -GI consultation 4. Pancytopenia secondary to alcoholism and liver disease -Medical and hematologic optimization 5. Hypoalbuminemia, multifactorial -Nutritional optimization -Encourage alcohol cessation 6. Alcoholism -Encourage cessation however patient has tried sober living unsuccessfully due to multiple factors 7. Abnormal LFTs, hyperbilirubinemia, and elevated alkaline phosphatase secondary to above -As above 8. Hyperlipidemia -Diet and medication optimization Thank you, Late entry 07/10 Problems: Subjective 24 Hr Interval Summary Fistulogram identifies colocutaneous fistula. No bleeding. No f/c. No n/v. No cp/sob. No cough. No guerra/dizzy/visual or neuro changes. Bowel function thru ileostomy. Exam/Review of Systems Vital Signs Vitals Vital Signs Date Time Temp Pulse Resp B/P Pulse Ox O2 Delivery O2 Flow Rate FiO2 07/11/16 07:42 97.7 69 16 105/62 97 Intake and Output 07/10/16 07/10/16 07/11/16 15:00 23:00 07:00 Intake Total 1600 ml 510 ml Output Total 1300 ml 1700 ml Balance 300 ml -1190 ml Exam Free Text/Dictation Constitutional: alert, oriented, No distress Psych: other (Flat affect), No anxiety, No confusion, No nl mood/affect Head: atraumatic, normocephalic Eyes: EOMI, PERRL, nl conjunctiva, No icteric ENMT: mucosa pink and moist, nl external ears & nose, nl lips & teeth Neck: non-tender, supple Respiratory: normal air movement, No congested cough, No diminished breath sounds, No labored breathing Cardiovascular: regular rate and rhythm, No edema Gastrointestinal: other (Right lower quadrant ileostomy. Umbilical hernia. Upper midline open wound with minimal drainage (questionable enterocutaneous fistula versus chronic wound)), soft, No distended, No rebound or guarding Genitourinary - Male: nl penis, nl scrotum Musculoskeletal: nl extremities to inspection, nl gait and stance, No joint tenderness Extremities: normal pulses, No calf tenderness Neurological: nl mental status, nl speech, nl strength Skin: nl turgor, No diaphoresis, No rash or lesions Lymph: nl lymph nodes Results Result Diagram: 07/11/16 0905 07/10/16 0458 JOON SHORT MD Jul 11, 2016 19:47
--- NOTE | 2016-07-11 19:50 | PN ---
Date/Time of Note Date/Time of Note DATE: 07/11/16 TIME: 19:48 Assessment/Plan Lines/Catheters IV Catheter Type (from [facility]): Peripheral IV Assessment/Plan Chief Complaint/Hosp Course 1. 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 Bleeding from ileostomy and colocutaneous stabilized -Monitor 3. Cirrhosis with fatty liver -Will benefit from triple phase contrast CT scan -GI consultation 4. Pancytopenia secondary to alcoholism and liver disease -Medical and hematologic optimization 5. Hypoalbuminemia, multifactorial -Nutritional optimization -Encourage alcohol cessation 6. Alcoholism -Encourage cessation however patient has tried sober living unsuccessfully due to multiple factors 7. Abnormal LFTs, hyperbilirubinemia, and elevated alkaline phosphatase secondary to above -As above 8. Hyperlipidemia -Diet and medication optimization Thank you, Problems: Subjective 24 Hr Interval Summary Operative report indicates patient had ischemic right colon and partial transverse colon requiring ileostomy and mucous fistula placement. No bleeding. No f/c. No n/v. No cp/sob. No cough. No guerra/dizzy/visual or neuro changes. Bowel function thru ileostomy. Exam/Review of Systems Vital Signs Vitals Vital Signs Date Time Temp Pulse Resp B/P Pulse Ox O2 Delivery O2 Flow Rate FiO2 07/11/16 07:42 97.7 69 16 105/62 97 Intake and Output 07/10/16 07/10/16 07/11/16 15:00 23:00 07:00 Intake Total 1600 ml 510 ml Output Total 1300 ml 1700 ml Balance 300 ml -1190 ml Exam Free Text/Dictation Constitutional: alert, oriented, No distress Psych: other (Flat affect), No anxiety, No confusion, No nl mood/affect Head: atraumatic, normocephalic Eyes: EOMI, PERRL, nl conjunctiva, No icteric ENMT: mucosa pink and moist, nl external ears & nose, nl lips & teeth Neck: non-tender, supple Respiratory: normal air movement, No congested cough, No diminished breath sounds, No labored breathing Cardiovascular: regular rate and rhythm, No edema Gastrointestinal: other (Right lower quadrant ileostomy. Umbilical hernia. Upper midline open wound with minimal drainage (questionable enterocutaneous fistula versus chronic wound)), soft, No distended, No rebound or guarding Genitourinary - Male: nl penis, nl scrotum Musculoskeletal: nl extremities to inspection, nl gait and stance, No joint tenderness Extremities: normal pulses, No calf tenderness Neurological: nl mental status, nl speech, nl strength Skin: nl turgor, No diaphoresis, No rash or lesions Lymph: nl lymph nodes Results Result Diagram: 07/11/16 0905 07/10/16 0458 JOON SHORT MD Jul 11, 2016 19:50
[2016-07-11] MEDS: CEFTRIAXONE 1 GM/50 ML (PMX) 50 ML IVPB SCH (21:03)
[2016-07-11] MEDS: HYDROCODONE/APAP (5/325) TAB PO PRN (21:04)
[2016-07-11] MEDS: LORAZEPAM 1 MG TAB PO PRN (21:05)
[2016-07-11] MEDS: traMADol 50 MG TAB PO PRN (22:52)
[2016-07-12] MEDS: ZOLPIDEM 5 MG TAB PO PRN ×2 (00:10→23:21)
[2016-07-12] MEDS: HYDROCODONE/APAP (5/325) TAB PO PRN ×3 (03:23→16:42)
[2016-07-12] MEDS: PANTOPRAZOLE 40 MG INJ IV SCH (05:59)
[2016-07-12] MEDS: traMADol 50 MG TAB PO PRN ×3 (05:59→18:38)
[2016-07-12] MEDS: SOD CHLORIDE 0.9% 1,000 ML IV SCH (06:00)
[2016-07-12 07:56] LABS: ADD SCAN DIFF NO
[2016-07-12 07:57] LABS: ABNORMAL IP MESSAGE 1; BASOPHIL # 0.1 10^3/ul (0.0-0.1); BASOPHILS % 3.2 % (0.0-2.0); EOSINOPHILS # 0.1 10^3/ul (0.0-0.5); EOSINOPHILS % 2.1 % (0.0-7.0); HEMATOCRIT 28.3 % (42.0-52.0); HEMOGLOBIN 9.3 g/dl (14.0-18.0); LYMPHOCYTES # 0.9 10^3/ul (0.8-2.9); LYMPHOCYTES % 24.5 % (15.0-51.0); MEAN CORPUSCULAR HGB CONC 32.9 g/dl (32.0-37.0); MEAN CORPUSCULAR VOLUME 94.3 fl (82.0-101.0); MEAN PLATELET VOLUME 11.7 fl (7.4-10.4); MONOCYTE # 0.6 10^3/ul (0.3-0.9); NEUTROPHIL # 2.1 10^3/ul (1.6-7.5); NEUTROPHILS % 54.9 % (39.0-77.0); PLATELET COUNT 192 10^3/UL (140-415); RED CELL DISTRIBUTION WIDTH 22.7 % (11.5-14.5); WHITE BLOOD COUNT 3.8 10^3/ul (4.8-10.8)
[2016-07-12 08:03] VITALS: BP 109/64; RESP 16
[2016-07-12 08:20] LABS: CALCIUM 8.9 mg/dl (8.4-10.2); CREATININE 0.54 mg/dl (0.61-1.24)
[2016-07-12] MEDS: DOCUSATE SODIUM 100 MG CAP PO SCH ×2 (09:44→22:00)
[2016-07-12] MEDS: FOLIC ACID 1 MG TAB PO SCH (09:45)
[2016-07-12] MEDS: LORAZEPAM 1 MG TAB PO PRN ×2 (13:35→23:21)
--- NOTE | 2016-07-12 15:05 | PN ---
Date/Time of Note Date/Time of Note DATE: 07/12/16 TIME: 15:04 Assessment/Plan VTE Prophylaxis VTE Prophylaxis Intervention: SCD's Lines/Catheters IV Catheter Type (from [facility]): Peripheral IV Assessment/Plan Chief Complaint/Hosp Course 1.GI bleed from ileostomy and unhealed incision wound, stopped 2. Anemia 3. ETOH abuse 4. Liver cirrhosis with low platelet 5. Hs of colectomy with ileostomy formation 2 years ago 6. hepatitis C 7. Unhealed abdominal incision after exploratory laparotomy 2 years ago 8. Nicotine dependency 9. Homelessness. Problems: Assessment/Plan 1. Placement issue Subjective 24 Hr Interval Summary Constitutional: no complaints Exam/Review of Systems Vital Signs Vitals Vital Signs Date Time Temp Pulse Resp B/P Pulse Ox O2 Delivery O2 Flow Rate FiO2 07/12/16 08:03 98.3 66 16 109/64 96 Intake and Output 07/11/16 07/11/16 07/12/16 15:00 23:00 07:00 Intake Total 360 ml 2640 ml 780 ml Output Total 1700 ml 1700 ml Balance 360 ml 940 ml -920 ml Exam Constitutional: alert, oriented ENMT: nl external ears & nose Neck: supple Respiratory: clear to auscultation Cardiovascular: regular rate and rhythm Gastrointestinal: other (2 collection bags), soft, surgical scars Results Result Diagram: 07/12/16 0737 07/12/16 0737 Results 24 hrs Laboratory Tests Test 07/12/16 07:37 White Blood Count 3.8 L Red Blood Count 3.00 L Hemoglobin 9.3 L Hematocrit 28.3 L Mean Corpuscular Volume 94.3 Mean Corpuscular Hemoglobin 31.0 Mean Corpuscular Hemoglobin Concent 32.9 Red Cell Distribution Width 22.7 H Platelet Count 192 Mean Platelet Volume 11.7 H Neutrophils % 54.9 Lymphocytes % 24.5 Monocytes % 15.0 H Eosinophils % 2.1 Basophils % 3.2 H Nucleated Red Blood Cells % 0.0 Neutrophils # 2.1 Lymphocytes # 0.9 Monocytes # 0.6 Eosinophils # 0.1 Basophils # 0.1 Nucleated Red Blood Cells # 0.0 Sodium Level 136 Potassium Level 4.0 Chloride Level 107 Carbon Dioxide Level 20 L Anion Gap 13 Blood Urea Nitrogen 14 Creatinine 0.54 L Glucose Level 82 Calcium Level 8.9 Medications Medications Current Medications Sodium Chloride (NS) 1,000 ml @ 40 mls/hr Q24H IV Last administered on 06:00; Admin Dose 40 MLS/HR; Start 07/03/16 at 17:48 Acetaminophen (Tylenol Tab) 650 mg Q6H PRN PO PAIN LEVEL 1-3 OR FEVER; Start at 18:00 Acetaminophen/ Hydrocodone Bitart ([place] (5/325)) 1 tab Q6H PRN PO MODERATE PAIN LEVEL 4-6 Last administered on 07/12/16 09:44; Admin Dose 1 TAB; Start at 18:00 Zolpidem Tartrate (Ambien) 5 mg QHS PRN PO SLEEP Last administered on 07/12/16 00:10; Admin Dose 5 MG; Start 07/03/16 at 18:00 Pantoprazole 40 mg 40 mg DAILY@06 IV Last administered on 07/12/16 05:59; Admin Dose 40 MG; Start 07/04/16 at 06:00 Ceftriaxone Sodium (Rocephin) 50 ml @ 100 mls/hr Q24H IVPB Last administered on 07/11/16 21:03; Admin Dose 100 MLS/HR; Start 07/03/16 at 20:00 Docusate Sodium (Colace) 100 mg BID PO Last administered on 07/12/16 09:44; Admin Dose 100 MG; Start 07/03/16 at 21:00 Folic Acid (Folic Acid) 1 mg DAILY PO Last administered on 07/12/16 09:45; Admin Dose 1 MG; Start 07/04/16 at 09:00 Ondansetron HCl (Zofran Inj) 2 mg Q6H PRN IV NAUSEA AND/OR VOMITING; Start at 18:30 Senna (Senokot) 1 tab HS PRN PO CONSTIPATION; Start 07/03/16 at 21:00 Guaifenesin/ Dextromethorphan (Robitussin Dm Liquid Cup) 10 ml Q4H PRN PO COUGH Last administered on 07/10/16 13:50; Admin Dose 10 ML; Start 07/03/16 at 20:30 Lorazepam (Ativan) 2 mg Q4H PRN PO ANXIETY Last administered on 07/12/16 13:35 ; Admin Dose 2 MG; Start 07/11/16 at 11:30 Morphine Sulfate (morphine) 4 mg Q4H PRN IM pain; Start 07/11/16 at 15:00 Tramadol HCl (Ultram) 50 mg Q6H PRN PO PAIN Last administered on 07/12/16t 12:37 ; Admin Dose 50 MG; Start 07/11/16 at 18:30 ESTRELLITA BENITEZ Jul 12, 2016 15:05
[2016-07-12] MEDS ORDERED: morphine 10 MG INJ IV PRN (19:00)
[2016-07-12 19:58] VITALS: BP 99/56; RESP 20
--- NOTE | 2016-07-12 20:10 | CONS ---
Date/Time of Note Date/Time of Note DATE: 07/12/16 TIME: 20:07 Assessment/Plan Assessment/Plan Additional Assessment/Plan IMPRESSION: 1. Anemia which is multifactorial, but the patient had GI bleeding from two duodenal ulcers 2. Also had bleeding from the capillary of the stomach which spontaneously stopped. 3. Cirrhosis of liver. 4. Pancytopenia secondary to alcoholism and liver disease. 5. History of ethanol abuse. 6. mucus fistula Plan Continue PPI I will review fistulogram with the radiologist to look at the site of fistula in the colon. 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 This should not be closed. Consultation Date/Type/Reason Admit Date/Time July 03, 2016 at 16:40 Initial Consult Date 07/04/16 Type of Consultation: Hematology Referring Provider: LANCE RIVAS MD 24 HR Interval Summary Constitutional: improved Exam/Review of Systems Vital Signs Vitals Vital Signs Date Time Temp Pulse Resp B/P Pulse Ox O2 Delivery O2 Flow Rate FiO2 07/12/16 19:58 97.6 75 20 99/56 98 Intake and Output 07/11/16 07/11/16 07/12/16 15:00 23:00 07:00 Intake Total 360 ml 2640 ml 780 ml Output Total 1700 ml 1700 ml Balance 360 ml 940 ml -920 ml Exam Constitutional: alert, oriented, well developed Psych: nl mood/affect, no complaints Head: atraumatic, normocephalic Eyes: EOMI, PERRL, nl conjunctiva, nl lids, nl sclera ENMT: nl external ears & nose, nl lips & teeth, nl nasal mucosa & septum Neck: non-tender, supple Respiratory: clear to auscultation, normal air movement Cardiovascular: nl pulses, regular rate and rhythm Gastrointestinal: nl liver, spleen, non-tender, soft Musculoskeletal: nl extremities to inspection, nl gait and stance Extremities: normal pulses Neurological: ADVERTISING CAMPAIGN MANAGER II-XII intact, nl mental status, nl speech, nl strength Skin: nl turgor, No rash or lesions Lymph: nl lymph nodes Results Result Diagram: 07/12/16 0737 07/12/16 0737 Results 24 hrs Laboratory Tests Test 07/12/16 07:37 White Blood Count 3.8 L Red Blood Count 3.00 L Hemoglobin 9.3 L Hematocrit 28.3 L Mean Corpuscular Volume 94.3 Mean Corpuscular Hemoglobin 31.0 Mean Corpuscular Hemoglobin Concent 32.9 Red Cell Distribution Width 22.7 H Platelet Count 192 Mean Platelet Volume 11.7 H Neutrophils % 54.9 Lymphocytes % 24.5 Monocytes % 15.0 H Eosinophils % 2.1 Basophils % 3.2 H Nucleated Red Blood Cells % 0.0 Neutrophils # 2.1 Lymphocytes # 0.9 Monocytes # 0.6 Eosinophils # 0.1 Basophils # 0.1 Nucleated Red Blood Cells # 0.0 Sodium Level 136 Potassium Level 4.0 Chloride Level 107 Carbon Dioxide Level 20 L Anion Gap 13 Blood Urea Nitrogen 14 Creatinine 0.54 L Glucose Level 82 Calcium Level 8.9 Medications Medications Current Medications Sodium Chloride (NS) 1,000 ml @ 40 mls/hr Q24H IV Last administered on 06:00; Admin Dose 40 MLS/HR; Start 07/03/16 at 17:48 Acetaminophen (Tylenol Tab) 650 mg Q6H PRN PO PAIN LEVEL 1-3 OR FEVER; Start at 18:00 Acetaminophen/ Hydrocodone Bitart ([place] (5/325)) 1 tab Q6H PRN PO MODERATE PAIN LEVEL 4-6 Last administered on 07/12/16 16:42; Admin Dose 1 TAB; Start at 18:00 Zolpidem Tartrate (Ambien) 5 mg QHS PRN PO SLEEP Last administered on 07/12/16 00:10; Admin Dose 5 MG; Start 07/03/16 at 18:00 Pantoprazole 40 mg 40 mg DAILY@06 IV Last administered on 07/12/16 05:59; Admin Dose 40 MG; Start 07/04/16 at 06:00 Ceftriaxone Sodium (Rocephin) 50 ml @ 100 mls/hr Q24H IVPB Last administered on 07/11/16 21:03; Admin Dose 100 MLS/HR; Start 07/03/16 at 20:00 Docusate Sodium (Colace) 100 mg BID PO Last administered on 07/12/16 09:44; Admin Dose 100 MG; Start 07/03/16 at 21:00 Folic Acid (Folic Acid) 1 mg DAILY PO Last administered on 07/12/16 09:45; Admin Dose 1 MG; Start 07/04/16 at 09:00 Ondansetron HCl (Zofran Inj) 2 mg Q6H PRN IV NAUSEA AND/OR VOMITING; Start at 18:30 Senna (Senokot) 1 tab HS PRN PO CONSTIPATION; Start 07/03/16 at 21:00 Guaifenesin/ Dextromethorphan (Robitussin Dm Liquid Cup) 10 ml Q4H PRN PO COUGH Last administered on 07/10/16 13:50; Admin Dose 10 ML; Start 07/03/16 at 20:30 Lorazepam (Ativan) 2 mg Q4H PRN PO ANXIETY Last administered on 07/12/16 13:35 ; Admin Dose 2 MG; Start 07/11/16 at 11:30 Tramadol HCl (Ultram) 50 mg Q6H PRN PO PAIN Last administered on 07/12/16 18:38 ; Admin Dose 50 MG; Start 07/11/16 at 18:30 Morphine Sulfate (morphine) 3 mg Q4H PRN IV pain; Start 07/12/16 at 17:30 SINAN SHERIFF MD Jul 12, 2016 20:09
[2016-07-12] MEDS: CEFTRIAXONE 1 GM/50 ML (PMX) 50 ML IVPB SCH (22:00)
[2016-07-12] MEDS: morphine 4 MG/ML VIAL IV PRN (22:01)
--- NOTE | 2016-07-12 23:45 | PN ---
Date/Time of Note Date/Time of Note DATE: 07/12/16 TIME: 23:44 Assessment/Plan Lines/Catheters IV Catheter Type (from [facility]): Peripheral IV Assessment/Plan Chief Complaint/Hosp Course 1. 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 Bleeding from ileostomy and colocutaneous stabilized -Monitor 3. Cirrhosis with fatty liver -Will benefit from triple phase contrast CT scan -GI consultation 4. Pancytopenia secondary to alcoholism and liver disease -Medical and hematologic optimization 5. Hypoalbuminemia, multifactorial -Nutritional optimization -Encourage alcohol cessation 6. Alcoholism -Encourage cessation however patient has tried sober living unsuccessfully due to multiple factors 7. Abnormal LFTs, hyperbilirubinemia, and elevated alkaline phosphatase secondary to above -As above 8. Hyperlipidemia -Diet and medication optimization Thank you, Problems: Subjective 24 Hr Interval Summary No bleeding. No f/c. No n/v. No cp/sob. No cough. No guerra/dizzy/visual or neuro changes. Bowel function thru ileostomy. Exam/Review of Systems Vital Signs Vitals Vital Signs Date Time Temp Pulse Resp B/P Pulse Ox O2 Delivery O2 Flow Rate FiO2 07/12/16 19:58 97.6 75 20 99/56 98 Intake and Output 07/11/16 07/11/16 07/12/16 15:00 23:00 07:00 Intake Total 360 ml 2640 ml 780 ml Output Total 1700 ml 1700 ml Balance 360 ml 940 ml -920 ml Exam Free Text/Dictation Constitutional: alert, oriented, No distress Psych: other (Flat affect), No anxiety, No confusion, No nl mood/affect Head: atraumatic, normocephalic Eyes: EOMI, PERRL, nl conjunctiva, No icteric ENMT: mucosa pink and moist, nl external ears & nose, nl lips & teeth Neck: non-tender, supple Respiratory: normal air movement, No congested cough, No diminished breath sounds, No labored breathing Cardiovascular: regular rate and rhythm, No edema Gastrointestinal: other (Right lower quadrant ileostomy. Umbilical hernia. Upper midline open wound with minimal drainage (questionable enterocutaneous fistula versus chronic wound)), soft, No distended, No rebound or guarding Genitourinary - Male: nl penis, nl scrotum Musculoskeletal: nl extremities to inspection, nl gait and stance, No joint tenderness Extremities: normal pulses, No calf tenderness Neurological: nl mental status, nl speech, nl strength Skin: nl turgor, No diaphoresis, No rash or lesions Lymph: nl lymph nodes Results Result Diagram: 07/12/16 0737 07/12/16 0737 JOON SHORT MD Jul 12, 2016 23:45
[2016-07-13] MEDS: HYDROCODONE/APAP (5/325) TAB PO PRN (01:30)
[2016-07-13] MEDS: morphine 4 MG/ML VIAL IV PRN ×4 (04:10→22:23)
[2016-07-13] MEDS: PANTOPRAZOLE 40 MG INJ IV SCH (05:28)
[2016-07-13] MEDS: SOD CHLORIDE 0.9% 1,000 ML IV SCH (05:28)
[2016-07-13 07:52] VITALS: BP 99/64; RESP 16
[2016-07-13] MEDS: DOCUSATE SODIUM 100 MG CAP PO SCH ×2 (09:03→21:37)
[2016-07-13] MEDS: FOLIC ACID 1 MG TAB PO SCH (09:03)
[2016-07-13] MEDS: GUAIFENESIN/DM 5ML CUP PO PRN (09:11)
--- NOTE | 2016-07-13 13:45 | PN ---
Date/Time of Note Date/Time of Note DATE: 07/13/16 TIME: 13:44 Assessment/Plan Lines/Catheters IV Catheter Type (from [facility]): Peripheral IV Assessment/Plan Chief Complaint/Hosp Course 1. 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 Bleeding from ileostomy and colocutaneous stabilized -Monitor 3. Cirrhosis with fatty liver -Will benefit from triple phase contrast CT scan -GI consultation 4. Pancytopenia secondary to alcoholism and liver disease -Medical and hematologic optimization 5. Hypoalbuminemia, multifactorial -Nutritional optimization -Encourage alcohol cessation 6. Alcoholism -Encourage cessation however patient has tried sober living unsuccessfully due to multiple factors 7. Abnormal LFTs, hyperbilirubinemia, and elevated alkaline phosphatase secondary to above -As above 8. Hyperlipidemia -Diet and medication optimization Thank you, Problems: Subjective 24 Hr Interval Summary No bleeding. No f/c. No n/v. No cp/sob. No cough. No guerra/dizzy/visual or neuro changes. Bowel function thru ileostomy. Transaminitis and hyperbilirubinemia. Exam/Review of Systems Vital Signs Vitals Vital Signs Date Time Temp Pulse Resp B/P Pulse Ox O2 Delivery O2 Flow Rate FiO2 07/13/16 07:52 98.2 70 16 99/64 97 Intake and Output 07/12/16 07/12/16 07/13/16 15:00 23:00 07:00 Intake Total 2690 ml 1020 ml Output Total 2150 ml 1600 ml Balance 540 ml -580 ml Exam Free Text/Dictation Constitutional: alert, oriented, No distress Psych: other (Flat affect), No anxiety, No confusion, No nl mood/affect Head: atraumatic, normocephalic Eyes: EOMI, PERRL, nl conjunctiva, No icteric ENMT: mucosa pink and moist, nl external ears & nose, nl lips & teeth Neck: non-tender, supple Respiratory: normal air movement, No congested cough, No diminished breath sounds, No labored breathing Cardiovascular: regular rate and rhythm, No edema Gastrointestinal: other (Right lower quadrant ileostomy. Umbilical hernia. Upper midline open wound with minimal drainage (questionable enterocutaneous fistula versus chronic wound)), soft, No distended, No rebound or guarding Genitourinary - Male: nl penis, nl scrotum Musculoskeletal: nl extremities to inspection, nl gait and stance, No joint tenderness Extremities: normal pulses, No calf tenderness Neurological: nl mental status, nl speech, nl strength Skin: nl turgor, No diaphoresis, No rash or lesions Lymph: nl lymph nodes Results Result Diagram: 07/12/16 0737 07/12/16 0737 JOON SHORT MD Jul 13, 2016 13:45
--- NOTE | 2016-07-13 14:24 | PN ---
Date/Time of Note Date/Time of Note DATE: 07/13/16 TIME: 14:23 Assessment/Plan VTE Prophylaxis VTE Prophylaxis Intervention: other Lines/Catheters IV Catheter Type (from Nrsg): Peripheral IV Assessment/Plan Chief Complaint/Hosp Course S/P GI BLEED ANEMIA CH ABD WOUND colocutan fistula pancytopenia ETOH ABUSE PLAN PER GI and surgery dc planning dc antibiotic Problems: Subjective 24 Hr Interval Summary Gastrointestinal: no complaints Genitourinary: no complaints Exam/Review of Systems Vital Signs Vitals Vital Signs Date Time Temp Pulse Resp B/P Pulse Ox O2 Delivery O2 Flow Rate FiO2 07/13/16 07:52 98.2 70 16 99/64 97 Intake and Output 07/12/16 07/12/16 07/13/16 15:00 23:00 07:00 Intake Total 2690 ml 1020 ml Output Total 2150 ml 1600 ml Balance 540 ml -580 ml Exam Respiratory: clear to auscultation Cardiovascular: regular rate and rhythm Gastrointestinal: soft Genitourinary - Male: nl penis Results Result Diagram: 07/12/1637 07/12/16 0737 Medications Medications Current Medications Sodium Chloride (NS) 1,000 ml @ 40 mls/hr Q24H IV Last administered on 05:28; Admin Dose 40 MLS/HR; Start 07/03/16 at 17:48 Acetaminophen (Tylenol Tab) 650 mg Q6H PRN PO PAIN LEVEL 1-3 OR FEVER; Start at 18:00 Acetaminophen/ Hydrocodone Bitart ([place] (5/325)) 1 tab Q6H PRN PO MODERATE PAIN LEVEL 4-6 Last administered on 07/13/16 01:30; Admin Dose 1 TAB; Start at 18:00 Zolpidem Tartrate (Ambien) 5 mg QHS PRN PO SLEEP Last administered on 07/12/16 23:21; Admin Dose 5 MG; Start 07/03/16 at 18:00 Pantoprazole 40 mg 40 mg DAILY@06 IV Last administered on 07/13/16 05:28; Admin Dose 40 MG; Start 07/04/16 at 06:00 Ceftriaxone Sodium (Rocephin) 50 ml @ 100 mls/hr Q24H IVPB Last administered on 07/12/16 22:00; Admin Dose 100 MLS/HR; Start 07/03/16 at 20:00 Docusate Sodium (Colace) 100 mg BID PO Last administered on 07/13/16 09:03; Admin Dose 100 MG; Start 07/03/16 at 21:00 Folic Acid (Folic Acid) 1 mg DAILY PO Last administered on 07/13/16 09:03; Admin Dose 1 MG; Start 07/04/16 at 09:00 Ondansetron HCl (Zofran Inj) 2 mg Q6H PRN IV NAUSEA AND/OR VOMITING; Start at 18:30 Senna (Senokot) 1 tab HS PRN PO CONSTIPATION; Start 07/03/16 at 21:00 Guaifenesin/ Dextromethorphan (Robitussin Dm Liquid Cup) 10 ml Q4H PRN PO COUGH Last administered on 07/13/16 09:11; Admin Dose 10 ML; Start 07/03/16 at 20:30 Lorazepam (Ativan) 2 mg Q4H PRN PO ANXIETY Last administered on 07/12/16 23:21 ; Admin Dose 2 MG; Start 07/11/16 at 11:30 Tramadol HCl (Ultram) 50 mg Q6H PRN PO PAIN Last administered on 07/12/16 18:38 ; Admin Dose 50 MG; Start 07/11/16 at 18:30 Morphine Sulfate (morphine) 3 mg Q4H PRN IV pain Last administered on 07/13/16 09:03; Admin Dose 3 MG; Start 07/12/16 at 17:30 LANCE RIVAS MD Jul 13, 2016 14:24
[2016-07-13] MEDS: traMADol 50 MG TAB PO PRN ×2 (14:47→21:37)
[2016-07-13] MEDS: LORAZEPAM 1 MG TAB PO PRN ×2 (15:44→21:37)
[2016-07-13 20:15] VITALS: BP 108/62; RESP 16
--- NOTE | 2016-07-13 21:29 | CONS ---
Date/Time of Note Date/Time of Note DATE: 07/13/16 TIME: 21:27 Assessment/Plan Assessment/Plan Additional Assessment/Plan Additional Assessment/Plan IMPRESSION: 1. Anemia which is multifactorial, but the patient had GI bleeding from two duodenal ulcers 2. Also had bleeding from the capillary of the stomach which spontaneously stopped. 3. Cirrhosis of liver. 4. Pancytopenia secondary to alcoholism and liver disease. 5. History of ethanol abuse. 6. mucus fistula Plan Continue PPI I will review fistulogram with the radiologist to look at the site of fistula in the colon. 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 refer pt to alcohol anonymous clinic upon discharge Consultation Date/Type/Reason Admit Date/Time July 03, 2016 at 16:40 Initial Consult Date 07/04/16 Type of Consultation: Hematology Referring Provider: LANCE RIVAS MD 24 HR Interval Summary Constitutional: no complaints Exam/Review of Systems Vital Signs Vitals Vital Signs Date Time Temp Pulse Resp B/P Pulse Ox O2 Delivery O2 Flow Rate FiO2 07/13/16 20:15 97.6 68 16 108/62 97 Intake and Output 07/12/16 07/12/16 07/13/16 15:00 23:00 07:00 Intake Total 2690 ml 1020 ml Output Total 2150 ml 1600 ml Balance 540 ml -580 ml Results Result Diagram: 07/12/16 0737 07/12/16 0737 Medications Medications Current Medications Sodium Chloride (NS) 1,000 ml @ 40 mls/hr Q24H IV Last administered on 05:28; Admin Dose 40 MLS/HR; Start 07/03/16 at 17:48 Acetaminophen (Tylenol Tab) 650 mg Q6H PRN PO PAIN LEVEL 1-3 OR FEVER; Start at 18:00 Acetaminophen/ Hydrocodone Bitart ([place] (5/325)) 1 tab Q6H PRN PO MODERATE PAIN LEVEL 4-6 Last administered on 07/13/16 01:30; Admin Dose 1 TAB; Start at 18:00 Zolpidem Tartrate (Ambien) 5 mg QHS PRN PO SLEEP Last administered on 07/12/16 23:21; Admin Dose 5 MG; Start 07/03/16 at 18:00 Pantoprazole (Protonix Iv) 40 mg DAILY@06 IV Last administered on 07/13/16 05: 28; Admin Dose 40 MG; Start 07/04/16 at 06:00 Docusate Sodium (Colace) 100 mg BID PO Last administered on 07/13/16 09:03; Admin Dose 100 MG; Start 07/03/16 at 21:00 Folic Acid (Folic Acid) 1 mg DAILY PO Last administered on 07/13/16 09:03; Admin Dose 1 MG; Start 07/04/16 at 09:00 Ondansetron HCl (Zofran Inj) 2 mg Q6H PRN IV NAUSEA AND/OR VOMITING; Start at 18:30 Senna (Senokot) 1 tab HS PRN PO CONSTIPATION; Start 07/03/16 at 21:00 Guaifenesin/ Dextromethorphan (Robitussin Dm Liquid Cup) 10 ml Q4H PRN PO COUGH Last administered on 07/13/16 09:11; Admin Dose 10 ML; Start 07/03/16 at 20:30 Lorazepam (Ativan) 2 mg Q4H PRN PO ANXIETY Last administered on 07/13/16 15:44 ; Admin Dose 2 MG; Start 07/11/16 at 11:30 Tramadol HCl (Ultram) 50 mg Q6H PRN PO PAIN Last administered on 07/13/16 14:47 ; Admin Dose 50 MG; Start 07/11/16 at 18:30 Morphine Sulfate (morphine) 3 mg Q4H PRN IV pain Last administered on 07/13/16 18:03; Admin Dose 3 MG; Start 07/12/16 at 17:30 SINAN SHERIFF MD Jul 13, 2016 21:29
[2016-07-14] MEDS: morphine 4 MG/ML VIAL IV PRN ×3 (04:13→14:23)
[2016-07-14] MEDS: SOD CHLORIDE 0.9% 1,000 ML IV SCH (04:13)
[2016-07-14] MEDS: PANTOPRAZOLE 40 MG INJ IV SCH (05:35)
[2016-07-14] MEDS: traMADol 50 MG TAB PO PRN ×3 (05:35→23:01)
[2016-07-14 07:56] VITALS: BP 102/57; RESP 18
[2016-07-14] MEDS: DOCUSATE SODIUM 100 MG CAP PO SCH ×2 (08:12→21:26)
[2016-07-14] MEDS: FOLIC ACID 1 MG TAB PO SCH (08:12)
[2016-07-14] MEDS: LORAZEPAM 1 MG TAB PO PRN ×2 (16:37→21:26)
--- NOTE | 2016-07-14 18:52 | PN ---
Date/Time of Note Date/Time of Note DATE: 07/14/16 TIME: 18:52 Assessment/Plan VTE Prophylaxis VTE Prophylaxis Intervention: other Lines/Catheters IV Catheter Type (from Nrsg): Peripheral IV Assessment/Plan Chief Complaint/Hosp Course S/P GI BLEED ANEMIA CH ABD WOUND colocutan fistula pancytopenia ETOH ABUSE PLAN PER GI and surgery dc planning dc antibiotic Problems: Subjective 24 Hr Interval Summary Gastrointestinal: no complaints Genitourinary: no complaints Exam/Review of Systems Vital Signs Vitals Vital Signs Date Time Temp Pulse Resp B/P Pulse Ox O2 Delivery O2 Flow Rate FiO2 07/14/16 07:56 98.0 64 18 102/57 94 Intake and Output 07/13/16 07/13/16 07/14/16 15:00 23:00 07:00 Intake Total 3160 ml 1450 ml Output Total 2700 ml 2550 ml Balance 460 ml -1100 ml Exam Respiratory: clear to auscultation Cardiovascular: regular rate and rhythm Gastrointestinal: soft Musculoskeletal: nl extremities to inspection Results Result Diagram: 07/12/16 0737 07/12/16 0737 Medications Medications Current Medications Sodium Chloride (NS) 1,000 ml @ 40 mls/hr Q24H IV Last administered on 04:13; Admin Dose 40 MLS/HR; Start 07/03/16 at 17:48 Acetaminophen (Tylenol Tab) 650 mg Q6H PRN PO PAIN LEVEL 1-3 OR FEVER; Start at 18:00 Acetaminophen/ Hydrocodone Bitart ([place] (5/325)) 1 tab Q6H PRN PO MODERATE PAIN LEVEL 4-6 Last administered on 07/13/16 01:30; Admin Dose 1 TAB; Start at 18:00 Zolpidem Tartrate (Ambien) 5 mg QHS PRN PO SLEEP Last administered on 07/12/16 23:21; Admin Dose 5 MG; Start 07/03/16 at 18:00 Pantoprazole (Protonix Iv) 40 mg DAILY@06 IV Last administered on 07/14/16 05: 35; Admin Dose 40 MG; Start 07/04/16 at 06:00 Docusate Sodium (Colace) 100 mg BID PO Last administered on 07/14/16 08:12; Admin Dose 100 MG; Start 07/03/16 at 21:00 Folic Acid (Folic Acid) 1 mg DAILY PO Last administered on 07/14/16 08:12; Admin Dose 1 MG; Start 07/04/16 at 09:00 Ondansetron HCl (Zofran Inj) 2 mg Q6H PRN IV NAUSEA AND/OR VOMITING; Start at 18:30 Senna (Senokot) 1 tab HS PRN PO CONSTIPATION; Start 07/03/16 at 21:00 Guaifenesin/ Dextromethorphan (Robitussin Dm Liquid Cup) 10 ml Q4H PRN PO COUGH Last administered on 07/13/16 09:11; Admin Dose 10 ML; Start 07/03/16 at 20:30 Lorazepam (Ativan) 2 mg Q4H PRN PO ANXIETY Last administered on 07/14/16 16:37 ; Admin Dose 2 MG; Start 07/11/16 at 11:30 Tramadol HCl (Ultram) 50 mg Q6H PRN PO PAIN Last administered on 07/14/16 16:37 ; Admin Dose 50 MG; Start 07/11/16 at 18:30 Morphine Sulfate (morphine) 3 mg Q4H PRN IV pain Last administered on 07/14/16 14:23; Admin Dose 3 MG; Start 07/12/16 at 17:30 LANCE RIVAS MD Jul 14, 2016 18:52
[2016-07-14 20:15] VITALS: BP 102/61; RESP 18
--- NOTE | 2016-07-14 20:42 | CONS ---
Date/Time of Note Date/Time of Note DATE: 07/14/16 TIME: 20:42 Assessment/Plan Assessment/Plan Additional Assessment/Plan Additional Assessment/Plan Additional Assessment/Plan IMPRESSION: 1. Anemia which is multifactorial, but the patient had GI bleeding from two duodenal ulcers 2. Also had bleeding from the capillary of the stomach which spontaneously stopped. 3. Cirrhosis of liver. 4. Pancytopenia secondary to alcoholism and liver disease. 5. History of ethanol abuse. 6. mucus fistula Plan Continue PPI I will review fistulogram with the radiologist to look at the site of fistula in the colon. 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 refer pt to alcohol anonymous clinic upon discharge Consultation Date/Type/Reason Admit Date/Time July 03, 2016 at 16:40 Initial Consult Date 07/04/16 Type of Consultation: Hematology Referring Provider: LANCE RIVAS MD 24 HR Interval Summary Constitutional: improved Exam/Review of Systems Vital Signs Vitals Vital Signs Date Time Temp Pulse Resp B/P Pulse Ox O2 Delivery O2 Flow Rate FiO2 07/14/16 20:15 98.0 67 18 102/61 95 Intake and Output 07/13/16 07/13/16 07/14/16 15:00 23:00 07:00 Intake Total 3160 ml 1450 ml Output Total 2700 ml 2550 ml Balance 460 ml -1100 ml Exam Constitutional: alert, oriented, well developed Psych: nl mood/affect, no complaints Head: atraumatic, normocephalic Eyes: EOMI, PERRL, nl conjunctiva, nl lids, nl sclera ENMT: nl external ears & nose, nl lips & teeth, nl nasal mucosa & septum Neck: non-tender, supple Respiratory: clear to auscultation, normal air movement Cardiovascular: nl pulses, regular rate and rhythm Gastrointestinal: nl liver, spleen, non-tender, soft Musculoskeletal: nl extremities to inspection, nl gait and stance Extremities: normal pulses Neurological: NEUROLOGY PHYSICIAN ASSISTANT II-XII intact, nl mental status, nl speech, nl strength Skin: nl turgor, No rash or lesions Lymph: nl lymph nodes Results Result Diagram: 07/12/16 0737 07/12/16 0737 Medications Medications Current Medications Sodium Chloride (NS) 1,000 ml @ 40 mls/hr Q24H IV Last administered on t 04:13; Admin Dose 40 MLS/HR; Start 07/03/16 at 17:48 Acetaminophen (Tylenol Tab) 650 mg Q6H PRN PO PAIN LEVEL 1-3 OR FEVER; Start at 18:00 Acetaminophen/ Hydrocodone Bitart ([place] (5/325)) 1 tab Q6H PRN PO MODERATE PAIN LEVEL 4-6 Last administered on 07/13/16 01:30; Admin Dose 1 TAB; Start at 18:00 Zolpidem Tartrate (Ambien) 5 mg QHS PRN PO SLEEP Last administered on 07/12/16 23:21; Admin Dose 5 MG; Start 07/03/16 at 18:00 Pantoprazole (Protonix Iv) 40 mg DAILY@06 IV Last administered on 07/14/16 05: 35; Admin Dose 40 MG; Start 07/04/16 at 06:00 Docusate Sodium (Colace) 100 mg BID PO Last administered on 07/14/16 08:12; Admin Dose 100 MG; Start 07/03/16 at 21:00 Folic Acid (Folic Acid) 1 mg DAILY PO Last administered on 07/14/16 08:12; Admin Dose 1 MG; Start 07/04/16 at 09:00 Ondansetron HCl (Zofran Inj) 2 mg Q6H PRN IV NAUSEA AND/OR VOMITING; Start at 18:30 Senna (Senokot) 1 tab HS PRN PO CONSTIPATION; Start 07/03/16 at 21:00 Guaifenesin/ Dextromethorphan (Robitussin Dm Liquid Cup) 10 ml Q4H PRN PO COUGH Last administered on 07/13/16 09:11; Admin Dose 10 ML; Start 07/03/16 at 20:30 Lorazepam (Ativan) 2 mg Q4H PRN PO ANXIETY Last administered on 07/14/16 16:37 ; Admin Dose 2 MG; Start 07/11/16 at 11:30 Tramadol HCl (Ultram) 50 mg Q6H PRN PO PAIN Last administered on 07/14/16 16:37 ; Admin Dose 50 MG; Start 07/11/16 at 18:30 Morphine Sulfate (morphine) 3 mg Q4H PRN IV pain Last administered on 6/5/17at 14:23; Admin Dose 3 MG; Start 07/12/16 at 17:30 SINAN SHERIFF MD Jul 14, 2016 20:42
[2016-07-14] MEDS: HYDROCODONE/APAP (5/325) TAB PO PRN (21:27)
[2016-07-14] MEDS: ZOLPIDEM 5 MG TAB PO PRN (22:58)
--- NOTE | 2016-07-15 05:09 | PN ---
Date/Time of Note Date/Time of Note DATE: 07/14/16 TIME: 11:08 Assessment/Plan Lines/Catheters IV Catheter Type (from [facility]): Peripheral IV Assessment/Plan Chief Complaint/Hosp Course 1. 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 Bleeding from ileostomy and colocutaneous stabilized -Monitor 3. Cirrhosis with fatty liver -Will benefit from triple phase contrast CT scan -GI consultation 4. Pancytopenia secondary to alcoholism and liver disease -Medical and hematologic optimization 5. Hypoalbuminemia, multifactorial -Nutritional optimization -Encourage alcohol cessation 6. Alcoholism -Encourage cessation however patient has tried sober living unsuccessfully due to multiple factors 7. Abnormal LFTs, hyperbilirubinemia, and elevated alkaline phosphatase secondary to above -As above 8. Hyperlipidemia -Diet and medication optimization Thank you, Late entry 07/14 Problems: Subjective 24 Hr Interval Summary No bleeding. No f/c. No n/v. No cp/sob. No cough. No guerra/dizzy/visual or neuro changes. Bowel function thru ileostomy. Transaminitis and hyperbilirubinemia. Exam/Review of Systems Vital Signs Vitals Vital Signs Date Time Temp Pulse Resp B/P Pulse Ox O2 Delivery O2 Flow Rate FiO2 07/14/16 20:15 98.0 67 18 102/61 95 Intake and Output 07/14/16 07/14/16 07/15/16 15:00 23:00 07:00 Intake Total 2280 ml Output Total 1100 ml Balance 1180 ml Exam Free Text/Dictation Constitutional: alert, oriented, No distress Psych: other (Flat affect), No anxiety, No confusion, No nl mood/affect Head: atraumatic, normocephalic Eyes: EOMI, PERRL, nl conjunctiva, No icteric ENMT: mucosa pink and moist, nl external ears & nose, nl lips & teeth Neck: non-tender, supple Respiratory: normal air movement, No congested cough, No diminished breath sounds, No labored breathing Cardiovascular: regular rate and rhythm, No edema Gastrointestinal: other (Right lower quadrant ileostomy. Umbilical hernia. Upper midline open wound with minimal drainage (questionable enterocutaneous fistula versus chronic wound)), soft, No distended, No rebound or guarding Genitourinary - Male: nl penis, nl scrotum Musculoskeletal: nl extremities to inspection, nl gait and stance, No joint tenderness Extremities: normal pulses, No calf tenderness Neurological: nl mental status, nl speech, nl strength Skin: nl turgor, No diaphoresis, No rash or lesions Lymph: nl lymph nodes Results Result Diagram: 07/12/16 0737 07/12/16 0737 JOON SHORT MD Jul 15, 2016 05:09
[2016-07-15] MEDS: PANTOPRAZOLE 40 MG INJ IV SCH (05:40)
[2016-07-15] MEDS: morphine 4 MG/ML VIAL IV PRN (05:45)
[2016-07-15 07:33] VITALS: BP 106/71; RESP 18
[2016-07-15] MEDS: FOLIC ACID 1 MG TAB PO SCH (08:27)
[2016-07-15] MEDS: DOCUSATE SODIUM 100 MG CAP PO SCH ×2 (08:27→20:09)
[2016-07-15] MEDS: traMADol 50 MG TAB PO PRN ×2 (09:16→18:01)
[2016-07-15] MEDS: LORAZEPAM 1 MG TAB PO PRN ×2 (09:16→18:01)
[2016-07-15] MEDS: HYDROCODONE/APAP (5/325) TAB PO PRN (20:09)
[2016-07-15 20:16] VITALS: BP 104/62; RESP 18
--- NOTE | 2016-07-15 22:41 | CONS ---
Date/Time of Note Date/Time of Note DATE: 07/15/16 TIME: 22:41 Assessment/Plan Assessment/Plan Additional Assessment/Plan IMPRESSION: 1. Anemia which is multifactorial, but the patient had GI bleeding from two duodenal ulcers 2. Also had bleeding from the capillary of the stomach which spontaneously stopped. 3. Cirrhosis of liver. 4. Pancytopenia secondary to alcoholism and liver disease. 5. History of ethanol abuse. 6. mucus fistula Plan Continue PPI Consultation Date/Type/Reason Admit Date/Time July 03, 2016 at 16:40 Initial Consult Date 07/04/16 Type of Consultation: Hematology Referring Provider: LANCE RIVAS MD 24 HR Interval Summary Constitutional: improved, no complaints Exam/Review of Systems Vital Signs Vitals Vital Signs Date Time Temp Pulse Resp B/P Pulse Ox O2 Delivery O2 Flow Rate FiO2 07/15/16 20:16 98.7 69 18 104/62 97 Intake and Output 07/14/16 07/14/16 07/15/16 15:00 23:00 07:00 Intake Total 2280 ml 800 ml Output Total 1100 ml 1300 ml Balance 1180 ml -500 ml Results Result Diagram: 07/12/16 0737 07/12/16 0737 Medications Medications Current Medications Acetaminophen (Tylenol Tab) 650 mg Q6H PRN PO PAIN LEVEL 1-3 OR FEVER; Start at 18:00 Acetaminophen/ Hydrocodone Bitart ([place] (5/325)) 1 tab Q6H PRN PO MODERATE PAIN LEVEL 4-6 Last administered on 07/15/16 20:09; Admin Dose 1 TAB; Start at 18:00 Zolpidem Tartrate (Ambien) 5 mg QHS PRN PO SLEEP Last administered on 07/14/16 22:58; Admin Dose 5 MG; Start 07/03/16 at 18:00 Docusate Sodium (Colace) 100 mg BID PO Last administered on 07/15/16 20:09; Admin Dose 100 MG; Start 07/03/16 at 21:00 Folic Acid (Folic Acid) 1 mg DAILY PO Last administered on 07/15/16 08:27; Admin Dose 1 MG; Start 07/04/16 at 09:00 Ondansetron HCl (Zofran Inj) 2 mg Q6H PRN IV NAUSEA AND/OR VOMITING; Start at 18:30 Senna (Senokot) 1 tab HS PRN PO CONSTIPATION; Start 07/03/16 at 21:00 Guaifenesin/ Dextromethorphan (Robitussin Dm Liquid Cup) 10 ml Q4H PRN PO COUGH Last administered on 07/13/16 09:11; Admin Dose 10 ML; Start 07/03/16 at 20:30 Lorazepam (Ativan) 2 mg Q4H PRN PO ANXIETY Last administered on 07/15/16 18:01 ; Admin Dose 2 MG; Start 07/11/16 at 11:30 Tramadol HCl (Ultram) 50 mg Q6H PRN PO PAIN Last administered on 07/15/16 18:01 ; Admin Dose 50 MG; Start 07/11/16 at 18:30 Pantoprazole (Protonix Tab) 40 mg DAILY@06 PO ; Start 07/16/16 at 06:00 SINAN SHERIFF MD Jul 15, 2016 22:41
[2016-07-16] MEDS: PANTOPRAZOLE (EC) 40 MG TAB PO SCH (05:45)
[2016-07-16] MEDS: traMADol 50 MG TAB PO PRN (05:50)
[2016-07-16] MEDS: LORAZEPAM 1 MG TAB PO PRN ×2 (05:50→19:21)
[2016-07-16 07:44] VITALS: BP 116/63; RESP 20
[2016-07-16] MEDS: HYDROCODONE/APAP (5/325) TAB PO PRN (09:10)
[2016-07-16] MEDS: FOLIC ACID 1 MG TAB PO SCH (09:10)
[2016-07-16] MEDS: DOCUSATE SODIUM 100 MG CAP PO SCH ×2 (09:10→21:21)
--- NOTE | 2016-07-16 12:16 | PN ---
Date/Time of Note Date/Time of Note DATE: 07/15/16 TIME: 12:15 Assessment/Plan Lines/Catheters IV C[facility]ter Type (from [facility] Peripheral IV Assessment/Plan Chief Complaint/Hosp Course 1. 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 Bleeding from ileostomy and colocutaneous stabilized -Monitor 3. Cirrhosis with fatty liver -Will benefit from triple phase contrast CT scan -GI consultation 4. Pancytopenia secondary to alcoholism and liver disease -Medical and hematologic optimization 5. Hypoalbuminemia, multifactorial -Nutritional optimization -Encourage alcohol cessation 6. Alcoholism -Encourage cessation however patient has tried sober living unsuccessfully due to multiple factors 7. Abnormal LFTs, hyperbilirubinemia, and elevated alkaline phosphatase secondary to above -As above 8. Hyperlipidemia -Diet and medication optimization Thank you, Late entry 07/15 Problems: Subjective 24 Hr Interval Summary No bleeding. No f/c. No n/v. No cp/sob. No cough. No guerra/dizzy/visual or neuro changes. Bowel function thru ileostomy. Transaminitis and hyperbilirubinemia improving. Exam/Review of Systems Vital Signs Vitals Vital Signs Date Time Temp Pulse Resp B/P Pulse Ox O2 Delivery O2 Flow Rate FiO2 07/16/16 07:44 97.7 63 20 116/63 97 Intake and Output 07/15/16 07/15/16 07/16/16 15:00 23:00 07:00 Intake Total 140 ml 1320 ml 800 ml Output Total 1000 ml 2200 ml Balance 140 ml 320 ml -1400 ml Exam Free Text/Dictation Constitutional: alert, oriented, No distress Psych: other (Flat affect), No anxiety, No confusion, No nl mood/affect Head: atraumatic, normocephalic Eyes: EOMI, PERRL, nl conjunctiva, No icteric ENMT: mucosa pink and moist, nl external ears & nose, nl lips & teeth Neck: non-tender, supple Respiratory: normal air movement, No congested cough, No diminished breath sounds, No labored breathing Cardiovascular: regular rate and rhythm, No edema Gastrointestinal: other (Right lower quadrant ileostomy. Umbilical hernia. Upper midline open wound with minimal drainage (questionable enterocutaneous fistula versus chronic wound)), soft, No distended, No rebound or guarding Genitourinary - Male: nl penis, nl scrotum Musculoskeletal: nl extremities to inspection, nl gait and stance, No joint tenderness Extremities: normal pulses, No calf tenderness Neurological: nl mental status, nl speech, nl strength Skin: nl turgor, No diaphoresis, No rash or lesions Lymph: nl lymph nodes Results Result Diagram: 07/12/16 0737 07/12/16 0737 JOON SHORT MD Jul 16, 2016 12:16
--- NOTE | 2016-07-16 12:17 | PN ---
Date/Time of Note Date/Time of Note DATE: 07/16/16 TIME: 12:16 Assessment/Plan Lines/Catheters IV Catheter Type (from [facility]): Peripheral IV Assessment/Plan Chief Complaint/Hosp Course 1. 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 Bleeding from ileostomy and colocutaneous stabilized -Monitor 3. Cirrhosis with fatty liver -Will benefit from triple phase contrast CT scan -GI consultation 4. Pancytopenia secondary to alcoholism and liver disease -Medical and hematologic optimization 5. Hypoalbuminemia, multifactorial -Nutritional optimization -Encourage alcohol cessation 6. Alcoholism -Encourage cessation however patient has tried sober living unsuccessfully due to multiple factors 7. Abnormal LFTs, hyperbilirubinemia, and elevated alkaline phosphatase secondary to above -As above 8. Hyperlipidemia -Diet and medication optimization Thank you, Problems: Subjective 24 Hr Interval Summary No bleeding. No f/c. No n/v. No cp/sob. No cough. No guerra/dizzy/visual or neuro changes. Bowel function thru ileostomy. Transaminitis and hyperbilirubinemia improving. Exam/Review of Systems Vital Signs Vitals Vital Signs Date Time Temp Pulse Resp B/P Pulse Ox O2 Delivery O2 Flow Rate FiO2 07/16/16 07:44 97.7 63 20 116/63 97 Intake and Output 07/15/16 07/15/16 07/16/16 15:00 23:00 07:00 Intake Total 140 ml 1320 ml 800 ml Output Total 1000 ml 2200 ml Balance 140 ml 320 ml -1400 ml Exam Free Text/Dictation Constitutional: alert, oriented, No distress Psych: other (Flat affect), No anxiety, No confusion, No nl mood/affect Head: atraumatic, normocephalic Eyes: EOMI, PERRL, nl conjunctiva, No icteric ENMT: mucosa pink and moist, nl external ears & nose, nl lips & teeth Neck: non-tender, supple Respiratory: normal air movement, No congested cough, No diminished breath sounds, No labored breathing Cardiovascular: regular rate and rhythm, No edema Gastrointestinal: other (Right lower quadrant ileostomy. Umbilical hernia. Upper midline open wound with minimal drainage (questionable enterocutaneous fistula versus chronic wound)), soft, No distended, No rebound or guarding Genitourinary - Male: nl penis, nl scrotum Musculoskeletal: nl extremities to inspection, nl gait and stance, No joint tenderness Extremities: normal pulses, No calf tenderness Neurological: nl mental status, nl speech, nl strength Skin: nl turgor, No diaphoresis, No rash or lesions Lymph: nl lymph nodes Results Result Diagram: 07/12/16 0737 07/12/16 0737 JOON SHORT MD Jul 16, 2016 12:17
[2016-07-16] MEDS: HYDROmorphONE 4 MG TAB PO PRN (17:10)
[2016-07-16 19:18] VITALS: BP 113/68; RESP 20
--- NOTE | 2016-07-16 20:42 | CONS ---
Date/Time of Note Date/Time of Note DATE: 07/16/16 TIME: 20:40 Assessment/Plan Assessment/Plan Additional Assessment/Plan Assessment/Plan Additional Assessment/Plan IMPRESSION: 1. Anemia which is multifactorial, but the patient had GI bleeding from two duodenal ulcers 2. Also had bleeding from the capillary of the stomach which spontaneously stopped. 3. Cirrhosis of liver. 4. Pancytopenia secondary to alcoholism and liver disease. 5. History of ethanol abuse. 6. mucus fistula Plan Continue PPI awaiting placement Consultation Date/Type/Reason Admit Date/Time July 03, 2016 at 16:40 Initial Consult Date 07/04/16 Type of Consultation: Hematology Referring Provider: LANCE RIVAS MD 24 HR Interval Summary Constitutional: improved, no complaints Exam/Review of Systems Vital Signs Vitals Vital Signs Date Time Temp Pulse Resp B/P Pulse Ox O2 Delivery O2 Flow Rate FiO2 07/16/16 19:18 98.4 83 20 113/68 96 Intake and Output 07/15/16 07/15/16 07/16/16 15:00 23:00 07:00 Intake Total 140 ml 1320 ml 800 ml Output Total 1000 ml 2200 ml Balance 140 ml 320 ml -1400 ml Exam Constitutional: alert, oriented, well developed Psych: nl mood/affect, no complaints Head: atraumatic, normocephalic Eyes: EOMI, PERRL, nl conjunctiva, nl lids, nl sclera ENMT: nl external ears & nose, nl lips & teeth, nl nasal mucosa & septum Neck: non-tender, supple Respiratory: clear to auscultation, normal air movement Cardiovascular: nl pulses, regular rate and rhythm Gastrointestinal: nl liver, spleen, non-tender, soft Musculoskeletal: nl extremities to inspection, nl gait and stance Extremities: normal pulses 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, nl mental status, nl speech, nl strength Skin: nl turgor, No rash or lesions Lymph: nl lymph nodes Results Result Diagram: 07/12/16 0737 07/12/16 0737 Medications Medications Current Medications Acetaminophen (Tylenol Tab) 650 mg Q6H PRN PO PAIN LEVEL 1-3 OR FEVER; Start at 18:00 Zolpidem Tartrate (Ambien) 5 mg QHS PRN PO SLEEP Last administered on 07/14/16t 22:58; Admin Dose 5 MG; Start 07/03/16 at 18:00 Docusate Sodium (Colace) 100 mg BID PO Last administered on 07/16/16 09:10; Admin Dose 100 MG; Start 07/03/16 at 21:00 Folic Acid (Folic Acid) 1 mg DAILY PO Last administered on 07/16/16 09:10; Admin Dose 1 MG; Start 07/04/16 at 09:00 Ondansetron HCl (Zofran Inj) 2 mg Q6H PRN IV NAUSEA AND/OR VOMITING; Start at 18:30 Senna (Senokot) 1 tab HS PRN PO CONSTIPATION; Start 07/03/16 at 21:00 Guaifenesin/ Dextromethorphan (Robitussin Dm Liquid Cup) 10 ml Q4H PRN PO COUGH Last administered on 07/13/16 09:11; Admin Dose 10 ML; Start 07/03/16 at 20:30 Pantoprazole (Protonix Tab) 40 mg DAILY@06 PO Last administered on 07/16/16 05: 45; Admin Dose 40 MG; Start 07/16/16 at 06:00 Hydromorphone HCl (Dilaudid) 4 mg TID PRN PO PAIN Last administered on 17:10; Admin Dose 4 MG; Start 07/16/16 at 15:00 Lorazepam (Ativan) 1 mg Q8 PRN PO ANXIETY Last administered on 07/16/16 19:21; Admin Dose 1 MG; Start 07/16/16 at 19:30 SINAN SHERIFF MD Jul 16, 2016 20:42
[2016-07-16] MEDS: ZOLPIDEM 5 MG TAB PO PRN (23:00)
--- NOTE | 2016-07-16 23:27 | PN ---
Date/Time of Note Date/Time of Note DATE: 07/16/16 TIME: 23:26 Assessment/Plan VTE Prophylaxis VTE Prophylaxis Intervention: other Lines/Catheters IV Catheter Type (from Nrsg): Peripheral IV Assessment/Plan Chief Complaint/Hosp Course S/P GI BLEED ANEMIA CH ABD WOUND colocutan fistula pancytopenia ETOH ABUSE PLAN PER GI and surgery dc planning dc antibiotic snf soon Problems: Subjective 24 Hr Interval Summary Gastrointestinal: no complaints Genitourinary: no complaints Exam/Review of Systems Vital Signs Vitals Vital Signs Date Time Temp Pulse Resp B/P Pulse Ox O2 Delivery O2 Flow Rate FiO2 07/16/16 19:18 98.4 83 20 113/68 96 Intake and Output 07/15/16 07/15/16 07/16/16 15:00 23:00 07:00 Intake Total 140 ml 1320 ml 800 ml Output Total 1000 ml 2200 ml Balance 140 ml 320 ml -1400 ml Exam Respiratory: clear to auscultation Cardiovascular: regular rate and rhythm Gastrointestinal: soft Musculoskeletal: nl extremities to inspection Results Result Diagram: 07/12/16 0737 07/12/16 0737 Medications Medications Current Medications Acetaminophen (Tylenol Tab) 650 mg Q6H PRN PO PAIN LEVEL 1-3 OR FEVER; Start at 18:00 Zolpidem Tartrate (Ambien) 5 mg QHS PRN PO SLEEP Last administered on 07/16/16 23:00; Admin Dose 5 MG; Start 07/03/16 at 18:00 Docusate Sodium (Colace) 100 mg BID PO Last administered on 07/16/16 21:21; Admin Dose 100 MG; Start 07/03/16 at 21:00 Folic Acid (Folic Acid) 1 mg DAILY PO Last administered on 07/16/16 09:10; Admin Dose 1 MG; Start 07/04/16 at 09:00 Ondansetron HCl (Zofran Inj) 2 mg Q6H PRN IV NAUSEA AND/OR VOMITING; Start at 18:30 Senna (Senokot) 1 tab HS PRN PO CONSTIPATION; Start 07/03/16 at 21:00 Guaifenesin/ Dextromethorphan (Robitussin Dm Liquid Cup) 10 ml Q4H PRN PO COUGH Last administered on 07/13/16 09:11; Admin Dose 10 ML; Start 07/03/16 at 20:30 Pantoprazole (Protonix Tab) 40 mg DAILY@06 PO Last administered on 07/16/16 05: 45; Admin Dose 40 MG; Start 07/16/16 at 06:00 Hydromorphone HCl (Dilaudid) 4 mg TID PRN PO PAIN Last administered on 17:10; Admin Dose 4 MG; Start 07/16/16 at 15:00 Lorazepam (Ativan) 1 mg Q8 PRN PO ANXIETY Last administered on 07/16/16 19:21; Admin Dose 1 MG; Start 07/16/16 at 19:30 LANCE RIVAS MD Jul 16, 2016 23:27
[2016-07-17] MEDS: HYDROmorphONE 4 MG TAB PO PRN ×3 (06:15→23:37)
[2016-07-17] MEDS: PANTOPRAZOLE (EC) 40 MG TAB PO SCH (06:15)
[2016-07-17 07:38] VITALS: BP 109/66; RESP 16
[2016-07-17] MEDS: DOCUSATE SODIUM 100 MG CAP PO SCH ×2 (08:50→21:15)
[2016-07-17] MEDS: FOLIC ACID 1 MG TAB PO SCH (08:50)
[2016-07-17] MEDS: LORAZEPAM 1 MG TAB PO PRN ×2 (12:37→21:20)
--- NOTE | 2016-07-17 17:20 | PN ---
Date/Time of Note Date/Time of Note DATE: 07/17/16 TIME: 17:19 Assessment/Plan VTE Prophylaxis VTE Prophylaxis Intervention: other Lines/Catheters IV Catheter Type (from Nrs): Peripheral IV Urinary Cath still in place: No Assessment/Plan Chief Complaint/Hosp Course S/P GI BLEED ANEMIA CH ABD WOUND colocutan fistula pancytopenia ETOH ABUSE PLAN PER GI and surgery dc planning placement issue snf soon Problems: Subjective 24 Hr Interval Summary Cardiovascular: no complaints Gastrointestinal: no complaints Exam/Review of Systems Vital Signs Vitals Vital Signs Date Time Temp Pulse Resp B/P Pulse Ox O2 Delivery O2 Flow Rate FiO2 07/17/16 07:38 98.2 74 16 109/66 96 Intake and Output 07/16/16 07/16/16 07/17/16 15:00 23:00 07:00 Intake Total 1320 ml 1330 ml Output Total 800 ml 1400 ml Balance 520 ml -70 ml Exam Respiratory: clear to auscultation Cardiovascular: regular rate and rhythm Gastrointestinal: soft Musculoskeletal: nl extremities to inspection Extremities: normal pulses Medications Medications Current Medications Acetaminophen (Tylenol Tab) 650 mg Q6H PRN PO PAIN LEVEL 1-3 OR FEVER; Start at 18:00 Zolpidem Tartrate (Ambien) 5 mg QHS PRN PO SLEEP Last administered on 07/16/16 23:00; Admin Dose 5 MG; Start 07/03/16 at 18:00 Docusate Sodium (Colace) 100 mg BID PO Last administered on 07/17/16 08:50; Admin Dose 100 MG; Start 07/03/16 at 21:00 Folic Acid (Folic Acid) 1 mg DAILY PO Last administered on 07/17/16 08:50; Admin Dose 1 MG; Start 07/04/16 at 09:00 Ondansetron HCl (Zofran Inj) 2 mg Q6H PRN IV NAUSEA AND/OR VOMITING; Start at 18:30 Senna (Senokot) 1 tab HS PRN PO CONSTIPATION; Start 07/03/16 at 21:00 Guaifenesin/ Dextromethorphan (Robitussin Dm Liquid Cup) 10 ml Q4H PRN PO COUGH Last administered on 07/13/16 09:11; Admin Dose 10 ML; Start 07/03/16 at 20:30 Pantoprazole (Protonix Tab) 40 mg DAILY@06 PO Last administered on 07/17/16 06: 15; Admin Dose 40 MG; Start 07/16/16 at 06:00 Hydromorphone HCl (Dilaudid) 4 mg TID PRN PO PAIN Last administered on 14:16; Admin Dose 4 MG; Start 07/16/16 at 15:00 Lorazepam (Ativan) 1 mg Q8 PRN PO ANXIETY Last administered on 07/17/16 12:37; Admin Dose 1 MG; Start 07/16/16 at 19:30 LANCE RIVAS MD Jul 17, 2016 17:20
[2016-07-17 20:00] VITALS: BP 117/75; PULSE 71; RESP 18
--- NOTE | 2016-07-17 22:30 | CONS ---
Date/Time of Note Date/Time of Note DATE: 07/17/16 TIME: 22:30 Assessment/Plan Assessment/Plan Additional Assessment/Plan IMPRESSION: 1. Anemia which is multifactorial, but the patient had GI bleeding from two duodenal ulcers 2. Also had bleeding from the capillary of the stomach which spontaneously stopped. 3. Cirrhosis of liver. 4. Pancytopenia secondary to alcoholism and liver disease. 5. History of ethanol abuse. 6. mucus fistula Plan Continue PPI awaiting placement Consultation Date/Type/Reason Admit Date/Time July 03, 2016 at 16:40 Initial Consult Date 07/04/16 Type of Consultation: Hematology Referring Provider: LANCE RIVAS MD 24 HR Interval Summary Constitutional: no complaints Exam/Review of Systems Vital Signs Vitals Vital Signs Date Time Temp Pulse Resp B/P Pulse Ox O2 Delivery O2 Flow Rate FiO2 07/17/16 20:00 97.9 71 18 117/75 95 Intake and Output 07/16/16 07/16/16 07/17/16 15:00 23:00 07:00 Intake Total 1320 ml 1330 ml Output Total 800 ml 1400 ml Balance 520 ml -70 ml Exam Constitutional: alert, oriented, well developed Psych: nl mood/affect, no complaints Head: atraumatic, normocephalic Eyes: EOMI, PERRL, nl conjunctiva, nl lids, nl sclera ENMT: nl external ears & nose, nl lips & teeth, nl nasal mucosa & septum Neck: non-tender, supple Respiratory: clear to auscultation, normal air movement Cardiovascular: nl pulses, regular rate and rhythm Gastrointestinal: nl liver, spleen, non-tender, soft Musculoskeletal: nl extremities to inspection, nl gait and stance Extremities: normal pulses 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, nl mental status, nl speech, nl strength Skin: nl turgor, No rash or lesions Lymph: nl lymph nodes Medications Medications Current Medications Acetaminophen (Tylenol Tab) 650 mg Q6H PRN PO PAIN LEVEL 1-3 OR FEVER; Start at 18:00 Zolpidem Tartrate (Ambien) 5 mg QHS PRN PO SLEEP Last administered on 07/16/16 23:00; Admin Dose 5 MG; Start 07/03/16 at 18:00 Docusate Sodium (Colace) 100 mg BID PO Last administered on 07/17/16 21:15; Admin Dose 100 MG; Start 07/03/16 at 21:00 Folic Acid (Folic Acid) 1 mg DAILY PO Last administered on 07/17/16 08:50; Admin Dose 1 MG; Start 07/04/16 at 09:00 Ondansetron HCl (Zofran Inj) 2 mg Q6H PRN IV NAUSEA AND/OR VOMITING; Start at 18:30 Senna (Senokot) 1 tab HS PRN PO CONSTIPATION; Start 07/03/16 at 21:00 Guaifenesin/ Dextromethorphan (Robitussin Dm Liquid Cup) 10 ml Q4H PRN PO COUGH Last administered on 07/13/16 09:11; Admin Dose 10 ML; Start 07/03/16 at 20:30 Pantoprazole (Protonix Tab) 40 mg DAILY@06 PO Last administered on 07/17/16 06: 15; Admin Dose 40 MG; Start 07/16/16 at 06:00 Hydromorphone HCl (Dilaudid) 4 mg TID PRN PO PAIN Last administered on 14:16; Admin Dose 4 MG; Start 07/16/16 at 15:00 Lorazepam (Ativan) 1 mg Q8 PRN PO ANXIETY Last administered on 07/17/16 21:20; Admin Dose 1 MG; Start 07/16/16 at 19:30 SINAN SHERIFF MD Jul 17, 2016 22:30
[2016-07-17] MEDS: ZOLPIDEM 5 MG TAB PO PRN (23:37)
[2016-07-18] MEDS: HYDROmorphONE 4 MG TAB PO PRN ×2 (06:00→14:13)
[2016-07-18] MEDS: PANTOPRAZOLE (EC) 40 MG TAB PO SCH (06:00)
[2016-07-18 07:36] VITALS: BP 115/63; RESP 18
[2016-07-18] MEDS: FOLIC ACID 1 MG TAB PO SCH (09:55)
[2016-07-18] MEDS: DOCUSATE SODIUM 100 MG CAP PO SCH (09:55)
[2016-07-18] MEDS: LORAZEPAM 1 MG TAB PO PRN (09:57)
[2016-07-18] MEDS: GUAIFENESIN/DM 5ML CUP PO PRN (12:30)
--- NOTE | 2016-07-18 16:11 | PDOCDIS ---
Discharge Instructions DIAGNOSIS Discharge Diagnosis: liver cirrhosis, unhealing abdominal wound CONDITION Patient Condition: Serious HOME CARE INSTRUCTIONS: Special Diet: regular ACTIVITY: Activity Restrictions: Slowly Increase Activity Bathing Restrictions: Sponge Bath FOLLOW UP/APPOINTMENTS Appointments PCP i week Dr Olson and Dr Brewster in 1 week PAin control MD as needed SCHOOL/WORK RELEASE May return to School/Work with: No Restrictions ESTRELLITA BENITEZ Jul 18, 2016 16:11
[2016-07-18] MEDS ORDERED: PANT40TA4 PO (16:16)
[2016-07-18] MEDS ORDERED: ZOLP5TAB7 PO (16:16)
[2016-07-18] MEDS ORDERED: TRAM50TA2 PO (16:16)
[2016-07-18] MEDS ORDERED: FOLI-49 PO (16:16)
[2016-07-18] MEDS ORDERED: LORA1TAB PO (16:16)
[2016-07-18 17:00] VITALS: BP 124/74; PULSE 74; RESP 18
--- NOTE | 2016-07-18 19:01 | DS ---
Date/Time of Note Date/Time of Note DATE: 07/18/16 TIME: 18:55 Discharge Summary Admission/Discharge Info Admit Date/Time July 03, 2016 at 16:40 Discharge Date/Time Jul 18, 2016 at 17:50 Final Diagnosis Liver cirrhosis with thrombocytopenia. Unhealing abdominal wound s/p laparotomy. Consults Dr Brewster, dr Olson, dr Hawkins Hx of Present Illness pt was admitted to [facility] ago with bleeding to ileostomy and from midline incision. The bleeding was stopped on his own. he was in hospital for 5 days. Now transferred to [facility] for continuation of care Hospital Course S/P GI BLEED ANEMIA CH ABD WOUND colocutan fistula pancytopenia ETOH ABUSE PLAN PER GI and surgery dc planning placement issue snf soon Home Meds Active Scripts Tramadol HCl (Tramadol HCl) 50 Mg Tablet, 50 MG PO Q8H Y for PAIN LEVEL 6-10, # 45 TAB Prov:ESTRELLITA BENITEZ 07/18/16 Zolpidem Tartrate* (Zolpidem Tartrate*) 5 Mg Tablet, 5 MG PO QHS Y for SLEEP for 10 Days, TAB Prov:ESTRELLITA BENITEZ 07/18/16 Pantoprazole* (Pantoprazole*) 40 Mg Tablet., 40 MG PO DAILY@06 for 14 Days Prov:ESTRELLITA BENITEZ 07/18/16 Lorazepam* (Lorazepam*) 1 Mg Tablet, 2 MG PO BID Y for ANXIETY, #20 TAB Prov:ESTRELLITA BENITEZ 07/18/16 Folic Acid* (Folic Acid*) 1 Mg Tablet, 1 MG PO DAILY for 14 Days, TAB Prov:ESTRELLITA BENITEZ 07/18/16 Follow-up Plan PCP and Haylee Olson in 1 week Primary Care Provider Not On Staff Doctor ESTRELLITA BENITEZ Jul 18, 2016 19:01
== END 2016-07-18 17:50 | disposition home or self-care (01) | DRG 378 ==
LOC: MS2 16:40
PROVIDERS: ADMIT Internal Medicine Nephrology; ATTEND Internal Medicine Nephrology
DX: K26.4 Chronic or unspecified duodenal ulcer with hemorrhage (principal); D61.818 Other pancytopenia; K63.2 Fistula of intestine; E87.2 Acidosis; K70.30 Alcoholic cirrhosis of liver without ascites; Z93.2 Ileostomy status; Z90.49 Acquired absence of other specified parts of digestive tract; Z59.0 Homelessness; B19.20 Unspecified viral hepatitis C without hepatic coma; T81.89XA Other complications of procedures, not elsewhere classified, initial encounter; Y83.8 Other surgical procedures as the cause of abnormal reaction of the patient, or of later complication, without mention of misadventure at the time of the procedure; K76.0 Fatty (change of) liver, not elsewhere classified; F10.20 Alcohol dependence, uncomplicated; E88.09 Other disorders of plasma-protein metabolism, not elsewhere classified; F17.210 Nicotine dependence, cigarettes, uncomplicated; E78.5 Hyperlipidemia, unspecified; I78.8 Other diseases of capillaries
CPT/HCPCS: 74178; 76080; 80048; 80053; 82105; 82607; 82728; 82746; 83010; 83540; 83615; 85025; 85045; 85049; 85362; 85378; 85384; 85610; 85670; 85730; 87081; C1769; C9113; J0696; J1170; J2060; J2270; J2916; J7030; Q9967

== ENCOUNTER 2017-07-13 10:46 | Emergency (ER) | END 2017-07-13 13:27 | disposition home or self-care (01) ==